=== PATIENT | female | born 1940 | race Caucasian/White ===

== ENCOUNTER 2020-05-01 08:59 | Outpatient (REF) | payer MEDICARE, OTHER, SELFPAY ==
--- NOTE | 2020-05-01 | MM_ITS ---
EXAMINATION: MM SCREENING DIGITAL BREAST TOMOSYNTHESIS, BILATERAL CLINICAL INFORMATION: Screening. Asymptomatic. The lifetime risk of breast cancer based on the Tyrer-Cuzick Model is 2%. COMPARISON: Mammography: 04/26/2019, 09/30/2016, 08/21/2015 TECHNIQUE: Digital breast tomosynthesis is performed in both the craniocaudal and mediolateral oblique views along with computer-aided detection (CAD). Synthesized 2D images are generated from the tomosynthesis. FINDINGS: There are scattered areas of fibroglandular density (ACR BI-RADS breast composition Category b). There are no significant masses, abnormal calcifications, or other abnormalities. Nodular asymmetry central right breast and smaller nodular asymmetry mid outer left breast on CC view are stable from prior exams. No significant changes. MM/MM tomosynthesis screening BI IMPRESSION: No mammographic evidence of malignancy. ASSESSMENT: BI-RADS 2: Benign RECOMMENDATION: Routine annual mammography screening. This patient's information was entered into a reminder system with a target due date for their next mammogram.
== END 2020-05-01 09:00 | disposition home or self-care (01) ==
LOC: HO.MAMMO 08:59
PROVIDERS: PCP Internal Medicine; Visit Provider Internal Medicine Medical Oncology
DX: Z12.31 Encounter for screening mammogram for malignant neoplasm of breast (principal)
CPT/HCPCS: 77063; 77067

== ENCOUNTER 2020-11-14 10:22 | Outpatient (REF) | payer MEDICARE, OTHER, SELFPAY ==
--- NOTE | ~2020-11-14 | XR_ITS ---
EXAMINATION: XR CHEST 2 VIEWS CLINICAL INFORMATION: Hypertension and shortness of breath. COMPARISON: None. TECHNIQUE: Frontal and lateral views of the chest were obtained. FINDINGS: The heart, great vessels, pulmonary vasculature and mediastinum are normal. The lungs show no focal infiltrate, effusion or pneumothorax. There is interim appearance of mild linear scar/subsegmental atelectasis at the left base. There is no acute osseous abnormality. There is a moderate thoracolumbar dextroscoliosis. There are degenerative changes of the left shoulder. XR/XR chest 2V IMPRESSION: 1. No focal infiltrate or congestive heart failure is seen. 2. There is interim appearance of mild lateral left base linear scar/subsegmental atelectasis. As a precaution, short-term follow-up chest radiographs are recommended to ensure clearance and exclude the possibility of underlying obstructive process.
[2020-11-14 12:16] LABS: MANUAL DIFF FLAG NO
[2020-11-14 12:22] LABS: Basophils Percent Auto 0.5 % (0-2); Eosinophils Absolute Auto 0.3 X10*3/uL (0.0-0.4); Eosinophils Percent Auto 2.9 % (0-4); Hemoglobin 15.9 g/dl (12.0-16.0); Imm Gran Abs Auto 0.04 X10*3/uL (0.00-0.03); Imm Gran Pct Auto 0.5 % (0.0-0.4); Lymphocytes Absolute Auto 1.4 X10*3/uL (1.2-4.9); Lymphocytes Percent Auto 15.8 % (20-40); Mean Corpuscular HGB Conc 33.1 g/dl (31.0-35.0); Mean Corpuscular Hemoglobin 28.6 pg (27.0-33.0); Mean Corpuscular Volume 86.5 fL (80-98); Mean Platelet Volume 9.3 fL (9.4-12.3); Monocytes Absolute Auto 0.7 X10*3/uL (0.1-1.2); Monocytes Percent Auto 7.7 % (2-11); Neutrophils Absolute Auto 6.4 X10*3/uL (2.0-8.3); Neutrophils Percent Auto 72.6 % (45-73); Platelet Count 207 X10*3/uL (160-400); Red Blood Count 5.55 X10*6/uL (4.20-5.50); White Blood Count 8.7 X10*3/uL (4.8-10.8)
[2020-11-14 13:11] LABS: Alanine Aminotransferase 15 U/L (0-31); Albumin Level 4.4 g/dL (3.5-5.0); Alkaline Phosphatase 94 U/L (39-117); Anion Gap 14 (12-20); Aspartate Amino Transferase 22 U/L (5-31); Bilirubin Total 0.9 mg/dL (0.0-1.0); Blood Urea Nitrogen 12 mg/dL (9-16); Calcium 9.7 mg/dL (8.4-10.2); Carbon Dioxide 29 mmol/L (22-29); Chloride 104 mmol/L (96-108); Cholesterol 149 mg/dL; Estimated Glomerular Filt Rate 60; Glucose Fasting 87 mg/dL (60-99); HDL Cholesterol 39 mg/dL; LDL Cholesterol Calculated 84 mg/dl; Sodium 143 mmol/L (135-145); Total Protein 6.9 g/dL (6.5-8.0); Triglycerides 133 mg/dL
[2020-11-14 13:32] LABS: Free T4 (Free Thyroxine) 0.96 ng/dL (0.71-1.85); Thyroid Stimulating Hormone 5.58 uIU/mL (0.32-4.0); Vitamin D 25-OH Total 68.9 ng/mL (>30)
[2020-11-14 14:24] LABS: Vitamin B12 747 pg/mL (200-900)
== END 2020-11-14 10:23 | disposition home or self-care (01) ==
LOC: HO.LAB 10:22
PROVIDERS: PCP Internal Medicine; Visit Provider Internal Medicine
DX: E55.9 Vitamin D deficiency, unspecified (principal); I10 Essential (primary) hypertension; R06.02 Shortness of breath; K21.9 Gastro-esophageal reflux disease without esophagitis; R53.83 Other fatigue; M19.90 Unspecified osteoarthritis, unspecified site; Z85.038 Personal history of other malignant neoplasm of large intestine
CPT/HCPCS: 36415; 71046; 80053; 80061; 82306; 82607; 84439; 84443; 85025

== ENCOUNTER 2020-11-29 10:44 | Outpatient (REF) | payer MEDICARE, OTHER, SELFPAY ==
--- NOTE | ~2020-11-29 | CT_ITS ---
EXAMINATION: CT CHEST WITHOUT CONTRAST CLINICAL INFORMATION: SOB. Rule out lesion. COMPARISON: Chest 11/14/2020 TECHNIQUE: Multidetector volumetric CT imaging of the chest was done. Axial MIP volume rendering provided. Sagittal and coronal reformatted images were obtained. This CT examination was performed using dose optimization techniques as appropriate, variously including the following: *Automated exposure control *Adjustment of mA and/or kV according to patient size (this includes techniques or standardized protocols for targeted exams where dose is matched to indication/reason for exam; i.e. extremities or head) *Use of iterative reconstruction technique DLP: 203 mGy-cm FINDINGS: DIE TECHNICIAN: Unremarkable. LUNGS: The lungs are well expanded with linear stranding in lingula, left lower lobe, right middle lobe, and right lower lobe suggestive of atelectasis. There are no pulmonary nodules, mass or consolidation. There is a 5 mm noncalcified nodule left lower lobe axial image 407/5, calcified 3 mm nodule left lower lobe axial image 415/5, 2 mm pulmonary nodule right lower lobe axial image 369/5, and a 4 mm nodule right lower lobe anterior segment image 454/5. No acute consolidation seen. MEDIASTINUM: The left thyroid lobe is enlarged and heterogeneous. There are complex heterogeneous nodules with calcification. The right thyroid lobe has been surgically removed. The heart size and great vessels are normal caliber. No pericardial effusion seen. There are no coronary artery calcifications present either. PLEURA: There is no pleural effusion or thickening. AXILLA: There are small shotty lymph nodes in the axilla. The chest wall is unremarkable. UPPER ABDOMEN: There is a 3.1 cm cyst left hepatic lobe. OSSEOUS STRUCTURES: There are degenerative disc changes and spondylosis seen throughout the lumbar spine. No focal lesion seen. CT/CT chest wo con IMPRESSION: Multiple calcified and noncalcified nodules with the largest noncalcified nodule measuring 5 mm in the left lower lobe. Benign lymph node in the mediastinum. Atelectatic changes, as described above.
== END 2020-11-29 10:45 | disposition home or self-care (01) ==
LOC: HO.CT 10:44
PROVIDERS: PCP Internal Medicine; Visit Provider Internal Medicine
DX: R06.02 Shortness of breath (principal); I10 Essential (primary) hypertension
CPT/HCPCS: 71250

== ENCOUNTER 2020-12-12 14:12 | Outpatient (REF) | payer MEDICARE, OTHER, SELFPAY ==
[2020-12-12 14:52] LABS: MANUAL DIFF FLAG NO
[2020-12-12 15:06] LABS: Basophils Percent Auto 0.5 % (0-2); Eosinophils Absolute Auto 0.3 X10*3/uL (0.0-0.4); Hematocrit 43.9 % (37-47); Hemoglobin 14.9 g/dl (12.0-16.0); Imm Gran Abs Auto 0.03 X10*3/uL (0.00-0.03); Imm Gran Pct Auto 0.3 % (0.0-0.4); Lymphocytes Absolute Auto 1.4 X10*3/uL (1.2-4.9); Lymphocytes Percent Auto 16.6 % (20-40); Mean Corpuscular HGB Conc 33.9 g/dl (31.0-35.0); Mean Corpuscular Hemoglobin 29.4 pg (27.0-33.0); Mean Corpuscular Volume 86.6 fL (80-98); Mean Platelet Volume 9.3 fL (9.4-12.3); Monocytes Absolute Auto 0.7 X10*3/uL (0.1-1.2); Monocytes Percent Auto 7.9 % (2-11); Neutrophils Absolute Auto 6.2 X10*3/uL (2.0-8.3); Neutrophils Percent Auto 71.7 % (45-73); Platelet Count 194 X10*3/uL (160-400); Red Blood Count 5.07 X10*6/uL (4.20-5.50); Red Cell Distribution Width 13.6 % (11.0-16.0); White Blood Count 8.7 X10*3/uL (4.8-10.8)
[2020-12-12 15:24] LABS: Alanine Aminotransferase 15 U/L (0-31); Albumin Level 4.3 g/dL (3.5-5.0); Alkaline Phosphatase 95 U/L (39-117); Anion Gap 11 (12-20); Aspartate Amino Transferase 19 U/L (5-31); Bilirubin Total 0.6 mg/dL (0.0-1.0); Blood Urea Nitrogen 12 mg/dL (9-16); C Reactive Protein 0.54 mg/dL (< or = 0.50); Calcium 9.5 mg/dL (8.4-10.2); Carbon Dioxide 29 mmol/L (22-29); Chloride 105 mmol/L (96-108); Estimated Glomerular Filt Rate > 60; Glucose Random 95 mg/dL (60-115); Magnesium 2.1 mg/dL (1.6-2.6); Potassium 4.3 mmol/L (3.3-5.1); Sodium 141 mmol/L (135-145); Total Protein 6.7 g/dL (6.5-8.0)
== END 2020-12-12 14:13 | disposition home or self-care (01) ==
LOC: HO.LAB 14:12
PROVIDERS: PCP Internal Medicine; Visit Provider Internal Medicine
DX: R19.7 Diarrhea, unspecified (principal); I10 Essential (primary) hypertension; E86.0 Dehydration
CPT/HCPCS: 36415; 80053; 82550; 83735; 85025; 86140

== ENCOUNTER 2021-05-31 12:27 | Outpatient (REF) | payer MEDICARE, OTHER, SELFPAY ==
[2021-06-01 22:17] LABS: Immunoglobulin A 281 mg/dL (70-320)
[2021-06-03 23:06] LABS: Endomysial IgA Antibody Negative (Negative)
[2021-06-05 07:32] LABS: Gliadin Deamidated IgA Ab 2.7 U/mL; Gliadin Deamidated IgG Ab <1.0 U/mL; Transglutaminase Ab IgG <1.0 U/mL; Transglutaminase IgA <1.0 U/mL
== END 2021-05-31 12:28 | disposition home or self-care (01) ==
LOC: HO.LAB 12:27
PROVIDERS: PCP Internal Medicine; Visit Provider Internal Medicine
DX: R19.7 Diarrhea, unspecified (principal)
CPT/HCPCS: 36415; 82784; 86231; 86258; 86364

== ENCOUNTER 2021-07-11 08:00 | Day surgery (SDC) | payer MEDICARE, OTHER, SELFPAY ==
[2021-07-05 14:04] VITALS: BMI 32.3
--- NOTE | 2021-07-10 09:30 | HO.ANESPROP2 ---
Documented by User: Luisa Orozco NP 07/10/21 09:32 HPI - Anesthesia Eval Consult details Narrative: 81yo F for Colonoscopy h/o colon ca with colectomy 2017 [facility] Past Medical History Medical History Arthritis Asthma Chronic bronchitis GERD (gastroesophageal reflux disease) Hiatal hernia History of colon cancer HTN (hypertension) Hx of thyroid cancer Mild stress incontinence Neuropathy Shortness of breath Surgical History Surgical History History of appendectomy History of bilateral cataract extraction History of bladder suspension procedure History of colon surgery History of colonoscopy History of esophagogastroduodenoscopy (EGD) History of thyroidectomy History of tonsillectomy and adenoidectomy Hx of section Hx of cholecystectomy Social History Social History Are you a primary healthcare insurance sales agent to a significant other at home: No Do you presently have visiting nurse or other home services: No Patient Tobacco Use Status: Never used Tobacco Use of substances other than those prescribed or required for medical reasons: No Have you been hit, kicked, punched, or otherwise hurt by someone within the past year? If so, by whom?: No Are you DNR?: No Advance Directives: No Advance Directives Information Provided: No Advance Directives on File: No Recently lost weight without trying: No Eating poorly because of decreased appetite: No Nutrition Risks: No Nutritional Risk Patient : No Meds Allergies Allergy/AdvReac Type Severity Reaction Status Date / Time formaldehyde [FORMALDEHYDE] Allergy Unknown HIVES Unverified 07/05/21 13:41 Home Medications Medication Instructions Recorded Confirmed Last Taken Type acetaminophen 650 mg 1,300 mg PO Q8H 07/05/21 07/05/21 Unknown History tablet,extended release amlodipine 10 mg tablet 1 tab PO DAILY 07/05/21 07/05/21 Unknown History cholecalciferol (vitamin D3) 25 25 mcg PO DAILY 07/05/21 07/05/21 Unknown History mcg (1,000 unit) capsule (Vitamin D3) cholestyramine (with sugar) 4 gram ea PO 07/05/21 Unknown History oral powder fluticasone propionate 50 1 spray INTRANASAL BID 07/05/21 07/05/21 Unknown History mcg/actuation nasal spray,suspension gabapentin 300 mg capsule 2 cap PO BID 07/05/21 07/05/21 Unknown History ipratropium 20 mcg-albuterol 100 1 puff INHALATION Q6H PRN 07/05/21 07/05/21 Unknown History mcg/actuation mist for inhalation (Combivent Respimat) losartan 100 mg tablet 1 tab PO DAILY 07/05/21 07/05/21 Unknown History multivitamin 1 tab PO DAILY 07/05/21 07/05/21 Unknown History omeprazole 20 mg capsule,delayed 20 mg PO DAILY 07/05/21 07/05/21 Unknown History release oxybutynin chloride 10 mg 1 tab PO DAILY 07/05/21 07/05/21 Unknown History tablet,extended release 24 hr Exam Exam Date and Time: July 10, 2021 09 Height,Weight and Vital Signs: Height 5 ft 6 in Weight 90.718 kg Pertinent Lab Results Pertinent Lab Results: Laboratory Tests 12/12/20 12/12/20 14:25 14:25 WBC 8.7 Hgb 14.9 Hct 43.9 Plt Count 194 Sodium 141 Potassium 4.3 Chloride 105 Carbon Dioxide 29 BUN 12 Creatinine 0.89 Assessment and Plan Assessment Anesthesia Assessment: Chart Reviewed Documented by User: Deon Peralta MD 07/11/21 09:17 [facility] Past Medical History Medical History Arthritis Asthma Chronic bronchitis GERD (gastroesophageal reflux disease) Hiatal hernia History of colon cancer HTN (hypertension) Hx of thyroid cancer Mild stress incontinence Neuropathy Shortness of breath Family History Family history of problems with anesthesia: No Surgical History Surgical History History of appendectomy History of bilateral cataract extraction History of bladder suspension procedure History of colon surgery History of colonoscopy History of esophagogastroduodenoscopy (EGD) History of thyroidectomy History of tonsillectomy and adenoidectomy Hx of section Hx of cholecystectomy History of Problems with Anesthesia: No Social History Social History Are you a primary healthcare insurance sales agent to a significant other at home: No Do you presently have visiting nurse or other home services: No Patient Tobacco Use Status: Never used Tobacco Use of substances other than those prescribed or required for medical reasons: No Have you been hit, kicked, punched, or otherwise hurt by someone within the past year? If so, by whom?: No Are you DNR?: No Advance Directives: No Advance Directives Information Provided: No Advance Directives on File: No Recently lost weight without trying: No Eating poorly because of decreased appetite: No Nutrition Risks: No Nutritional Risk Patient : No Meds Allergies Allergy/AdvReac Type Severity Reaction Status Date / Time formaldehyde [FORMALDEHYDE] Allergy Unknown HIVES Unverified 07/05/21 13:41 Home Medications Medication Instructions Recorded Confirmed Last Taken Type acetaminophen 650 mg 1,300 mg PO Q8H 07/05/21 07/05/21 Unknown History tablet,extended release amlodipine 10 mg tablet 1 tab PO DAILY 07/05/21 07/05/21 Unknown History cholecalciferol (vitamin D3) 25 25 mcg PO DAILY 07/05/21 07/05/21 Unknown History mcg (1,000 unit) capsule (Vitamin D3) cholestyramine (with sugar) 4 gram ea PO 07/05/21 Unknown History oral powder fluticasone propionate 50 1 spray INTRANASAL BID 07/05/21 07/05/21 Unknown History mcg/actuation nasal spray,suspension gabapentin 300 mg capsule 2 cap PO BID 07/05/21 07/05/21 Unknown History ipratropium 20 mcg-albuterol 100 1 puff INHALATION Q6H PRN 07/05/21 07/05/21 Unknown History mcg/actuation mist for inhalation (Combivent Respimat) losartan 100 mg tablet 1 tab PO DAILY 07/05/21 07/05/21 Unknown History multivitamin 1 tab PO DAILY 07/05/21 07/05/21 Unknown History omeprazole 20 mg capsule,delayed 20 mg PO DAILY 07/05/21 07/05/21 Unknown History release oxybutynin chloride 10 mg 1 tab PO DAILY 07/05/21 07/05/21 Unknown History tablet,extended release 24 hr Exam Airway Mallampati Class: II TM Dist: >3cm Neck ROM: Full Assessment and Plan Assessment Anesthesia Assessment: Anesthesia Plan Discussed Final Anesthetic Review Family History of Problems with Anesthesia: No History of Problems with Anesthesia: No NPO: Yes ASA Class: II Final Preanesthetic Review: No Changes in Pt Med Stat, Meds/Allgs Chart Reviewed, Consent Obtained/Reviewed and Anes Risks/Benef Reviewed Patient Risk: Intermediate Procedure Risk: Low Anesthetic Plan Anesthetic Plan: MAC: Disposition: Standard PACU
[2021-07-11 09:09] VITALS: BP 142/83; PULSE 95; RESP 18; TEMP 36.8; O2SAT 95
[2021-07-11] MEDS: Lactated Ringers 1,000 ML 100 ML IVCONT (09:17)
[2021-07-11 09:54] VITALS: BP 99/57; PULSE 81; RESP 16; TEMP 37.6; O2SAT 96
--- NOTE | 2021-07-11 09:58 | P.BOP_ITS ---
Brief Operative Note Date of Service: 07/11/21 Pre-op diagnosis: Screening Post-op diagnosis: other (Internal hemorrhoids, Normal anastomosis) Procedure: Colonoscopy to the anastomosis and SI Surgeon: Jer Zelaya Anesthesia: MAC Was an Braiding Machine Tender used for this Procedure?: No Estimated blood loss (mL): 0 Pathology: none sent Condition: stable Disposition: PACU
[2021-07-11 09:59] VITALS: BP 95/65; PULSE 86; RESP 16; O2SAT 94
[2021-07-11 10:04] VITALS: BP 119/78; PULSE 81; RESP 16; O2SAT 94
[2021-07-11 10:10] VITALS: BP 110/87; PULSE 77; RESP 16; TEMP 36.4; O2SAT 94
--- NOTE | 2021-07-11 10:53 | OP_ITS ---
SURGEON: Jer Zelaya MD INDICATIONS: The patient presents for evaluation of colorectal cancer screening, personal history of colon cancer, and history of tubular adenoma of the colon. Full consent was obtained from her for this, including risks of bleeding and perforation. PREOPERATIVE DIAGNOSIS: POSTOPERATIVE DIAGNOSIS: PROCEDURE PERFORMED: Colonoscopy to the anastomosis and small bowel. ESTIMATED BLOOD LOSS: COMPLICATIONS: ANESTHESIA: Monitored anesthesia care. ASSISTANTS: SPECIMENS: PREOPERATIVE DIAGNOSES: Colorectal cancer screening, personal history of colon cancer, personal history of tubular adenoma of the colon. POSTOPERATIVE DIAGNOSES: Colorectal cancer screening, personal history of colon cancer, personal history of tubular adenoma of the colon, normal anastomosis, internal hemorrhoids. DESCRIPTION OF PROCEDURE: The patient was placed in the left lateral decubitus position. The digital rectal exam revealed no abnormalities. The Olympus video pediatric colonoscope was entered into the rectum advanced easily to the level of the anastomosis. The small bowel was cannulated and appeared normal. The scope was withdrawn back in the colon. The entire anastomosis was well visualized and appeared normal. The scope was slowly withdrawn assessing all mucosal surfaces carefully. Preparation in different parts of the colon had some liquid and solid stool, all of which were irrigated and suctioned away as best as possible, allowing an ultimately good visualization of the colon. I did not visualize any sign of polyps, colitis, or angiodysplasia. An another anastomosis was seen at approximately 10 cm with some suture material, but the anastomosis appeared normal. In the rectum, scope was retroflexed visualizing internal hemorrhoids, but no other pathology. The rectal mucosa otherwise appeared normal. The scope was straightened and withdrawn from the patient. She tolerated the procedure well and was returned to the recovery area in stable condition. IMPRESSION: 1. Internal hemorrhoids. 2. Normal anastomosis from her previous colon cancer surgery. PLAN: I would recommend a repeat colonoscopy in 3 years for further screening and surveillance, although at that point she will be in early 80s and we would need to take her clinical condition into account. She was given a prescription to try cholestyramine for the diarrhea that she has at home. She can use that plus her Imodium as needed. If things are well, I will see her in 3 years, but I did advise her to call sooner if need be. This has been discussed with her daughter. MD KAMALA Le/SAMY / [id number] MAXI
== END 2021-07-11 11:11 | disposition home or self-care (01) ==
PROVIDERS: PCP Internal Medicine; Visit Provider Internal Medicine
PROC: 0DJD8ZZ Inspection of Lower Intestinal Tract, Via Natural or Artificial Opening Endoscopic (ICD-10-PCS; CPT 45378; principal; 2021-07-11 09:10)
DX: Z12.11 Encounter for screening for malignant neoplasm of colon (principal); Z85.038 Personal history of other malignant neoplasm of large intestine; Z86.010 Personal history of colon polyps; Z98.0 Intestinal bypass and anastomosis status; K64.8 Other hemorrhoids; K21.9 Gastro-esophageal reflux disease without esophagitis; R19.7 Diarrhea, unspecified; J45.909 Unspecified asthma, uncomplicated; I10 Essential (primary) hypertension; G62.9 Polyneuropathy, unspecified; Z79.51 Long term (current) use of inhaled steroids; Z79.899 Other long term (current) drug therapy; Z92.21 Personal history of antineoplastic chemotherapy; Z90.49 Acquired absence of other specified parts of digestive tract; Z98.890 Other specified postprocedural states
CPT/HCPCS: G0105

== ENCOUNTER 2021-07-17 12:25 | Outpatient (REF) | payer MEDICARE, OTHER, SELFPAY ==
--- NOTE | ~2021-07-17 | MM_ITS ---
EXAMINATION: MM SCREENING DIGITAL BREAST TOMOSYNTHESIS, BILATERAL CLINICAL INFORMATION: Screening. Asymptomatic. The lifetime risk of breast cancer based on the Tyrer-Cuzick Model is 2%. COMPARISON: Mammography: 05/01/2020, 04/26/2019, 09/30/2016 TECHNIQUE: Digital breast tomosynthesis is performed in both the craniocaudal and mediolateral oblique views along with computer-aided detection (CAD). Synthesized 2D images are generated from the tomosynthesis. FINDINGS: There are scattered areas of fibroglandular density (ACR BI-RADS breast composition Category b). There are no significant masses, abnormal calcifications, or other abnormalities. Parenchymal pattern is similar to prior studies. There is stable nodule central anterior 9:30 right breast. Benign grouped coarse calcifications are again seen central right breast. The axilla and skin contours are unremarkable. There are no significant changes. MM/MM tomosynthesis screening BI IMPRESSION: No mammographic evidence of malignancy. ASSESSMENT: BI-RADS 2: Benign RECOMMENDATION: Routine annual mammography screening. This patient's information was entered into a reminder system with a target due date for their next mammogram.
== END 2021-07-17 12:26 | disposition home or self-care (01) ==
LOC: HO.MAMMO 12:25
PROVIDERS: Visit Provider Internal Medicine Medical Oncology
DX: Z12.31 Encounter for screening mammogram for malignant neoplasm of breast (principal)
CPT/HCPCS: 77063; 77067

== ENCOUNTER 2022-05-02 11:48 | Outpatient (REF) | payer MEDICARE, OTHER, SELFPAY ==
--- NOTE | ~2022-05-02 | XR_ITS ---
EXAMINATION: XR CHEST CLINICAL INFORMATION: Fatigue COMPARISON: CT chest 11/29/2020; chest radiographs 11/14/2020, 02/07/2016 TECHNIQUE: 2 views of the chest were obtained. FINDINGS: There is dextrocurvature lower thoracic spine and mild rotation of the chest on the frontal view. There is old linear scarring periphery left lingula and mild coarsening of the central bronchiolar markings. No hyperinflation. No lobar or segmental airspace consolidation, groundglass opacity, or effusion. The costophrenic sulci are clear. The cardiopericardial silhouette is borderline enlarged. Hilar contours unremarkable. XR/XR chest 2V IMPRESSION: 1. Mild coarsening bronchiolar markings. No hyperinflation, airspace consolidation, or effusion. 2. Borderline enlarged cardiopericardial silhouette. Vascularity normal.
[2022-05-02 12:27] LABS: MANUAL DIFF FLAG NO
[2022-05-02 13:21] LABS: Basophils Absolute Auto 0.1 X10*3/uL (0.0-0.2); Basophils Percent Auto 0.7 % (0-2); Eosinophils Absolute Auto 0.2 X10*3/uL (0.0-0.4); Eosinophils Percent Auto 2.5 % (0-4); Hematocrit 45.7 % (37.0-47.0); Hemoglobin 15.2 g/dl (12.0-16.0); Imm Gran Abs Auto 0.03 X10*3/uL (0.00-0.03); Imm Gran Pct Auto 0.3 % (0.0-0.4); Lymphocytes Absolute Auto 1.5 X10*3/uL (1.2-4.9); Lymphocytes Percent Auto 16.9 % (20-40); Mean Corpuscular HGB Conc 33.3 g/dl (31.0-35.0); Mean Corpuscular Hemoglobin 29.2 pg (27.0-33.0); Mean Corpuscular Volume 87.7 fL (80.0-98.0); Mean Platelet Volume 9.7 fL (9.4-12.3); Monocytes Absolute Auto 0.7 X10*3/uL (0.1-1.2); Monocytes Percent Auto 8.2 % (2-11); Neutrophils Absolute Auto 6.3 x10*3/uL (2.0-8.3); Neutrophils Percent Auto 71.4 % (45-73); Platelet Count 182 X10*3/uL (160-400); Red Blood Count 5.21 X10*6/uL (4.20-5.50); Red Cell Distribution Width 13.2 % (11.0-16.0); White Blood Count 8.8 X10*3/uL (4.8-10.8)
[2022-05-02 13:47] LABS: Appearance Urine Cloudy; Color Urine Dark Yellow; Glucose Urine UA Negative (Negative); Leukocyte Esterase Urine Negative (Negative); Nitrite Urine Negative (Negative); Urine Blood Negative (Negative); Urine Ketones Negative (Negative); Urine Protein Negative (Neg-Trace)
[2022-05-02 13:51] LABS: Alanine Aminotransferase 13 U/L (0-31); Albumin Level 4.4 g/dL (3.5-5.0); Alkaline Phosphatase 83 U/L (39-117); Anion Gap 13 (12-20); Aspartate Amino Transferase 23 U/L (5-31); Bilirubin Total 1.2 mg/dL (0.0-1.0); Blood Urea Nitrogen 12 mg/dL (9-16); C Reactive Protein 0.83 mg/dL (< or = 0.50); Calcium 9.6 mg/dL (8.4-10.2); Carbon Dioxide 30 mmol/L (22-29); Chloride 102 mmol/L (96-108); Cholesterol 160 mg/dL; Estimated Glomerular Filt Rate > 60; Glucose Fasting 96 mg/dL (60-99); HDL Cholesterol 41 mg/dL; LDL Cholesterol Calculated 97 mg/dl; Potassium 4.2 mmol/L (3.3-5.1); Sodium 141 mmol/L (135-145); Total Protein 6.7 g/dL (6.5-8.0); Triglycerides 110 mg/dL
[2022-05-02 14:08] LABS: Free T4 (Free Thyroxine) 0.89 ng/dL (0.71-1.85); Thyroid Stimulating Hormone 4.31 uIU/mL (0.32-4.0)
[2022-05-02 14:13] LABS: Vitamin B12 1085 pg/mL (200-900)
== END 2022-05-02 11:49 | disposition home or self-care (01) ==
LOC: HO.LAB 11:48
PROVIDERS: PCP Internal Medicine; Visit Provider Internal Medicine
DX: R53.83 Other fatigue (principal); I10 Essential (primary) hypertension; K21.9 Gastro-esophageal reflux disease without esophagitis; G62.9 Polyneuropathy, unspecified
CPT/HCPCS: 36415; 71046; 80053; 80061; 81003; 82607; 84439; 84443; 85025; 86140

== ENCOUNTER 2022-07-19 09:05 | Outpatient (REF) | payer MEDICARE, OTHER, SELFPAY ==
--- NOTE | ~2022-07-19 | MM_ITS ---
EXAMINATION: MM SCREENING DIGITAL BREAST TOMOSYNTHESIS, BILATERAL CLINICAL INFORMATION: Screening. Asymptomatic. The lifetime risk of breast cancer based on the Tyrer-Cuzick Model is 2%. COMPARISON: Mammography: 07/19/2022, 07/17/2021, 05/01/2020, 04/26/2019 TECHNIQUE: Digital breast tomosynthesis is performed in both the craniocaudal and mediolateral oblique views along with computer-aided detection (CAD). Synthesized 2D images are generated from the tomosynthesis. FINDINGS: There are scattered areas of fibroglandular density (ACR BI-RADS breast composition Category b). Parenchymal pattern is similar to prior studies and there is no developing density or architectural abnormality. Minor nodular asymmetry central right breast are similar to prior exams. There are no significant masses, abnormal calcifications, or other abnormalities. The axilla and skin contours are unremarkable. MM/MM tomosynthesis screening BI IMPRESSION: No mammographic evidence of malignancy. ASSESSMENT: BI-RADS 2: Benign RECOMMENDATION: Routine annual mammography screening. This patient's information was entered into a reminder system with a target due date for their next mammogram.
--- NOTE | ~2022-07-19 | MM_ITS ---
EXAMINATION: BONE DENSITOMETRY CLINICAL INDICATION: Screening. COMPARISON: This is the patient's baseline examination. TECHNIQUE: Using a [employer] DXA System (software version: 13.1) manufactured by [employer], dual-energy x-ray absorptiometry was performed of the lumbar spine and left hip. The images are of good technical quality. Summary results are attached. FINDINGS: AP SPINE L1-L2 (excluding L3 and L4): The data of L1-L4 has been changed to exclude the L3 and L4 vertebral bodies, because degenerative sclerosis at these levels may cause overestimation of lumbar spine density. BMD 1.174 g/cm2, Z-score 1.1, T-score 0.1, normal. LEFT FEMUR, NECK: BMD 0.951 g/cm2, Z-score 1.0, T-score -0.6, normal. LEFT FEMUR, TOTAL: BMD 0.852 g/cm2, Z-score 0.2, T-score -1.2, osteopenia. IDENTIFIED RISK FACTORS: Menopause, height loss, hysterectomy, osteoporosis, secondary osteoporosis. HISTORY OF FRACTURE: None listed. MEDICATIONS: Multivitamin, vitamin D. MM/XR DEXA axial skeleton IMPRESSION: 1. DIAGNOSIS: Osteopenia based on the lowest T-score value of -1.2 in the total femur applying World Health Organization criteria. 2. 10-YEAR FRACTURE RISK PREDICTION, FRAX: Major osteoporotic fracture (clinical spine, forearm, hip or shoulder) 10.0%. Hip fracture 1.6%. 3. Treatment Recommendations: NOF guidelines recommend consideration for treatment in postmenopausal women and men age 50 and older presenting with the following: -A hip or vertebral (clinical or morphometric) fracture. -T-score less than or equal to -2.5 at the femoral neck or spine after appropriate evaluation to exclude secondary causes. -Low bone mass at the hip or spine and a 10-year fracture probability by FRAX of greater than or equal to 3% for hip fracture or greater than or equal to 20% for major osteoporotic fracture based on the [place] adapted WHO algorithm. 4. Other Recommendations: All treatment decisions require clinical judgment and consideration of individual patient factors, including patient preferences, comorbidities, previous drug use, risk factors not captured in the FRAX model (e.g. frailty, falls, vitamin D deficiency, increased bone turnover, interval significant decline in bone density) and possible under or overestimation of fracture risk by FRAX. Additional medical evaluation for secondary cause of low bone mineral density may be appropriate. FUTURE SCAN RECOMMENDATION: People with diagnosed cases of osteoporosis or at high risk for fracture should have regular bone mineral density tests. For patients eligible for Medicare, routine testing is allowed once every 2 years. The testing frequency can be increased to one year for patients who have rapidly progressing disease, those who are receiving or discontinuing medical therapy to restore bone mass, or have additional risk factors.
== END 2022-07-19 09:06 | disposition home or self-care (01) ==
LOC: HO.MAMMO 09:05
PROVIDERS: PCP Internal Medicine; Visit Provider Internal Medicine
DX: Z12.31 Encounter for screening mammogram for malignant neoplasm of breast (principal); Z13.820 Encounter for screening for osteoporosis; Z78.0 Asymptomatic menopausal state
CPT/HCPCS: 77063; 77067; 77080

== ENCOUNTER 2022-11-14 14:06 | Emergency (ER) | payer MEDICARE, OTHER, SELFPAY ==
--- NOTE | ~2022-11-14 | CT_ITS ---
EXAMINATION: CT HEAD WITHOUT CONTRAST CLINICAL INFORMATION: Headache. COMPARISON: None TECHNIQUE: Contiguous axial imaging was performed from the skull base to vertex without intravenous administration of contrast. This CT examination was performed using dose optimization techniques as appropriate, variously including the following: *Automated exposure control *Adjustment of mA and/or kV according to patient size (this includes techniques or standardized protocols for targeted exams where dose is matched to indication/reason for exam; i.e. extremities or head) *Use of iterative reconstruction technique DLP: 688 mGy-cm FINDINGS: There is no evidence of acute intracranial hemorrhage or edematous territorial infarction. A few foci of hypoattenuation in the periventricular and deep white matter are consistent with mild microangiopathy. Donovan-white matter differentiation is preserved. Proportional prominence of the ventricles and sulcal spaces. No evidence for obstructive hydrocephalus. No abnormal mass effect or midline shift. No extra-axial fluid collections. No acute soft tissue or osseous abnormalities. The mastoid air cells and paranasal sinuses are clear. CT/CT head/brain wo IV con IMPRESSION: No evidence of acute intracranial hemorrhage or edematous territorial infarction.
--- NOTE | 2022-11-14 14:27 | ED_ITS ---
HPI - General Adult General Chief complaint: Headache Stated complaint: high blood pressure/ headache Time Seen by Provider: 11/14/22 16:27 Source: patient and family Mode of arrival: ambulatory Limitations: no limitations History of Present Illness HPI narrative: Patient complains of a headache. Headache is generalized. A 9/10. It came on gradually over the past few 2 days. There is no photo phonophobia. There is no nausea vomiting. There is no neck pain or stiffness. Patient does not have a history of headaches. The pain does not radiate. The headache is described as generalized and pressure-like. Daughter notes that she sounds a little bit congested. Related Data Home Medications Medication Instructions Recorded Confirmed acetaminophen 650 mg 1,300 mg PO Q8H 07/05/21 07/05/21 tablet,extended release amlodipine 10 mg tablet 1 tab PO DAILY 07/05/21 07/05/21 cholecalciferol (vitamin D3) 25 25 mcg PO DAILY 07/05/21 07/05/21 mcg (1,000 unit) capsule (Vitamin D3) cholestyramine (with sugar) 4 gram ea PO 07/05/21 oral powder fluticasone propionate 50 1 spray intranasal BID 07/05/21 07/05/21 mcg/actuation nasal spray,suspension gabapentin 300 mg capsule 2 cap PO BID 07/05/21 07/05/21 ipratropium 20 mcg-albuterol 100 1 puff inhalation Q6H PRN Wheezing 07/05/21 07/05/21 mcg/actuation mist for inhalation (Combivent Respimat) losartan 100 mg tablet 1 tab PO DAILY 07/05/21 07/05/21 multivitamin 1 tab PO DAILY 07/05/21 07/05/21 omeprazole 20 mg capsule,delayed 20 mg PO DAILY 07/05/21 07/11/21 release oxybutynin chloride 10 mg 1 tab PO DAILY 07/05/21 07/05/21 tablet,extended release 24 hr Previous Rx's Medication Instructions Recorded fvayyskbep-utijyuvzujvkm-xqvhxznr 1 cap PO Q4-6H PRN pain #10 caps 11/14/22 50 mg-300 mg-40 mg capsule (Fioricet) Allergies Allergy/AdvReac Type Severity Reaction Status Date / Time formaldehyde [FORMALDEHYDE] Allergy Unknown HIVES Verified 11/14/22 14:28 Review of Systems Review of Systems: CONSTITUTIONAL: Denies weight loss, fever and chills. HEENT: Denies changes in vision and hearing. RESPIRATORY: Denies SOB and cough. CV: Denies palpitations no CP. GI: Denies abdominal pain, nausea, vomiting and diarrhea. : Denies dysuria and urinary frequency. MSK: Denies myalgia and joint pain. SKIN: Denies rash and pruritus. NEUROLOGICAL: + headache - syncope. PSYCHIATRIC: Denies recent changes in mood. Denies anxiety and depression. All other ROS are negative unless in HPI PMFSH Past Medical History Medical History Arthritis Asthma Chronic bronchitis GERD (gastroesophageal reflux disease) Hiatal hernia History of colon cancer HTN (hypertension) Hx of thyroid cancer Mild stress incontinence Neuropathy Shortness of breath Surgical History History of appendectomy History of bilateral cataract extraction History of bladder suspension procedure History of colon surgery History of colonoscopy History of esophagogastroduodenoscopy (EGD) History of thyroidectomy History of tonsillectomy and adenoidectomy Hx of section Hx of cholecystectomy Social History Social History Are you a primary career resource specialist to a significant other at home: No Do you presently have visiting nurse or other home services: No Alcohol intake: never Patient Tobacco Use Status: Never used Tobacco Smoked in Last 30 Days: No Use of substances other than those prescribed or required for medical reasons: No Advance Directives: No Advance Directives Information Provided: No Physical Exam ED Vital Signs: Vital Signs - 24 hr 11/14/22 14:28 11/14/22 16:36 Temperature 98 F 97.6 F Pulse Rate 75 72 Respiratory Rate 19 18 Blood Pressure 186/87 H 174/83 H Pulse Oximetry 96 95 Oxygen Delivery Method Room Air Room Air BMI result Body Mass Index 31.5 GEN: Well developed, no acute distress, alert, oriented HEENT: Normocephalic, atraumatic, normal external ears, nose appears normal, no oropharyngeal edema or exudates Eyes: Normal to appearance Neck: Supple, no lymphadenopathy Respiratory: Talks in complete sentences, no respiratory distress, clear to auscultation bilaterally Cardiovascular: Regular rate and rhythm, no murmurs rubs or gallops Abdomen: Soft, nontender, nondistended, no guarding, no rebound Back: No CVA tenderness Extremities: No clubbing cyanosis or edema Neurologic: No focal neurologic deficits, cranial nerves 2-12 intact, strength is 5/5 bilaterally Skin: No rash Course Course Course Narrative: This is a rapid medical exam: Additional HPI, ROS, PE not included below will be deferred to primary provider. Patient is an 82-year-old female with history of asthma, arthritis, GERD, HTN, thyroid CA presenting with complaint of headache and elevated BP for two days after receiving two cortisone shots on Friday. Has tried Tylenol for arthritis without relief. Family states 190/98 was the highest. Patient reports blurred vision and watery eyes. Denies chest pain, shortness of breath. Denies abdominal pain, nausea, vomiting. Reports episode of diarrhea this morning. Plan: EKG, labs, UA Reevaluation(s) Reevaluation #1: Patient's headache is currently 5/10. She would like to be discharged home. I will send a prescription for Fioricet. She does have an elevated blood pressure still. Not sure if this is the cause her pain which I doubt more likely the blood pressure is the results of her pain. She will follow-up with her primary care provider. Time: 19:59 Medications Administered Discontinued Medications Generic Name Dose Route Start Last Admin Trade Name Hugh PRN Reason Stop Dose Admin Acetaminophen/Butalbital/Caffeine 1 tab 11/14/22 18:53 11/14/22 19:09 Butalb/Acetamin/Caff 50/325/40 Tablet PO 11/14/22 18:54 1 tab ONCE ONE Administration Dexamethasone Sodium Phosphate 10 mg 11/14/22 18:53 11/14/22 19:10 Dexamethasone Sod Phosphate 10 Mg/Ml Vial IVPUSH 11/14/22 18:54 10 mg ONCE ONE Administration Gabapentin 300 mg 11/14/22 17:35 11/14/22 18:10 Gabapentin 300 Mg Capsule PO 11/14/22 17:36 300 mg ONCE ONE Administration Sodium Chloride 1,000 mls @ 999 mls/hr 11/14/22 17:45 11/14/22 19:16 Ns IV 11/14/22 18:45 Infused .Q1H1M MAYKEL Infusion Ketorolac Tromethamine 15 mg 11/14/22 17:35 11/14/22 18:11 Ketorolac Tromethamine 15 Mg/Ml Vial IVPUSH 11/14/22 17:36 15 mg ONCE ONE Administration Metoclopramide HCl 10 mg 11/14/22 17:35 11/14/22 18:12 Metoclopramide Hcl 10 Mg/2 Ml Vial IVPUSH 11/14/22 17:36 10 mg ONCE ONE Administration Medical Decision Making Medical Decision Making [facility] Narrative: [age] year old female presents with headache and elevated blood pressure. Examination was benign. There are no meningeal signs. There is no sudden onset thunderclap headache. Doubt subarachnoid hemorrhage or meningitis. There are no reports of trauma to suggest subdural or epidural hematoma. Patient's headache is generalized around her head likely a tension headache. Differential diagnosis could also include cluster headache, migraine headache, sinus headache. I will obtain a CT scan of the head given her age in no history of significant headache syndrome. Will also check routine laboratory analysis. Will continue to monitor her blood pressure. Patient may warrant outpatient management of her elevated blood pressure readings. Differential Diagnosis Differential Diagnoses: The differential diagnosis associated with the presentation includes (See above) Admission/Observation Consideration of admission/observation: Escalation of care including admission/observation considered Lab Data [facility] Lab Attestation statement: I reviewed the patient's lab results. 11/14/22 15:16 11/14/22 15:16 Labs: Lab Results 11/14/22 11/14/22 11/14/22 Range/Units 15:15 15:16 15:16 WBC 15.5 H (4.8-10.8) X10*3/uL RBC 5.51 H (4.20-5.50) X10*6/uL Hgb 16.0 (12.0-16.0) g/dl Hct 46.8 (37.0-47.0) % MCV 84.9 (80.0-98.0) fL MCH 29.0 (27.0-33.0) pg MCHC 34.2 (31.0-35.0) g/dl RDW 13.9 (11.0-16.0) % Plt Count 201 (160-400) X10*3/uL MPV 8.9 L (9.4-12.3) fL Immature Gran % (Auto) 0.6 H (0.0-0.4) % Neut % (Auto) 85.2 H (45-73) % Lymph % (Auto) 7.8 L (20-40) % [place] % (Auto) 6.3 (2-11) % Eos % (Auto) 0.0 (0-4) % Baso % (Auto) 0.1 (0-2) % Lymph # (Auto) 1.2 (1.2-4.9) X10*3/uL [place] # (Auto) 1.0 (0.1-1.2) X10*3/uL Eos # (Auto) 0.0 (0.0-0.4) X10*3/uL Baso # (Auto) 0.0 (0.0-0.2) X10*3/uL Abs Immat Gran (auto) 0.10 H (0.00-0.03) X10*3/uL Absolute Neuts (auto) 13.2 H (2.0-8.3) x10*3/uL Absolute Nucleated RBC 0.000 (0.0-0.012) X10*3/uL Nucleated RBC % (auto) 0.0 (0.0-0.2) /100WBC Sodium 142 (135-145) mmol/L Potassium 4.0 (3.3-5.1) mmol/L Chloride 104 (96-108) mmol/L Carbon Dioxide 26 (22-29) mmol/L Anion Gap 16 (12-20) BUN 21 H (9-16) mg/dL Creatinine 0.85 (0.5-1.4) mg/dL Estim Creat Clear Calc 59.1 Estimated GFR > 60 Random Glucose 117 H (60-115) mg/dL Calcium 10.1 (8.4-10.2) mg/dL Magnesium 1.9 (1.6-2.6) mg/dL Total Bilirubin 0.8 (0.0-1.0) mg/dL AST 23 (5-31) U/L ALT 18 (0-31) U/L Alkaline Phosphatase 77 (39-117) U/L Troponin I High Sens (<3.5-17.0) ng/L Total Protein 7.5 (6.5-8.0) g/dL Albumin 4.6 (3.5-5.0) g/dL Urine Color Yellow Urine Appearance Clear Urine pH 6.5 (5.0-9.0) Ur Specific [place] 1.020 (1.005-1.025) Urine Protein Negative (Neg-Trace) mg/dL Urine Glucose (UA) Negative (Negative) mg/dL Urine Ketones Negative (Negative) mg/dL Urine Blood Negative (Negative) Urine Nitrite Negative (Negative) Ur Leukocyte Esterase Negative (Negative) 11/14/22 Range/Units 15:16 WBC (4.8-10.8) X10*3/uL RBC (4.20-5.50) X10*6/uL Hgb (12.0-16.0) g/dl Hct (37.0-47.0) % MCV (80.0-98.0) fL MCH (27.0-33.0) pg MCHC (31.0-35.0) g/dl RDW (11.0-16.0) % Plt Count (160-400) X10*3/uL MPV (9.4-12.3) fL Immature Gran % (Auto) (0.0-0.4) % Neut % (Auto) (45-73) % Lymph % (Auto) (20-40) % [place] % (Auto) (2-11) % Eos % (Auto) (0-4) % Baso % (Auto) (0-2) % Lymph # (Auto) (1.2-4.9) X10*3/uL [place] # (Auto) (0.1-1.2) X10*3/uL Eos # (Auto) (0.0-0.4) X10*3/uL Baso # (Auto) (0.0-0.2) X10*3/uL Abs Immat Gran (auto) (0.00-0.03) X10*3/uL Absolute Neuts (auto) (2.0-8.3) x10*3/uL Absolute Nucleated RBC (0.0-0.012) X10*3/uL Nucleated RBC % (auto) (0.0-0.2) /100WBC Sodium (135-145) mmol/L Potassium (3.3-5.1) mmol/L Chloride (96-108) mmol/L Carbon Dioxide (22-29) mmol/L Anion Gap (12-20) BUN (9-16) mg/dL Creatinine (0.5-1.4) mg/dL Estim Creat Clear Calc Estimated GFR Random Glucose (60-115) mg/dL Calcium (8.4-10.2) mg/dL Magnesium (1.6-2.6) mg/dL Total Bilirubin (0.0-1.0) mg/dL AST (5-31) U/L ALT (0-31) U/L Alkaline Phosphatase (39-117) U/L Troponin I High Sens 2.8 (<3.5-17.0) ng/L Total Protein (6.5-8.0) g/dL Albumin (3.5-5.0) g/dL Urine Color Urine Appearance Urine pH (5.0-9.0) Ur Specific [place] (1.005-1.025) Urine Protein (Neg-Trace) mg/dL Urine Glucose (UA) (Negative) mg/dL Urine Ketones (Negative) mg/dL Urine Blood (Negative) Urine Nitrite (Negative) Ur Leukocyte Esterase (Negative) Independent Interpretation I performed an independent interpretation of an: EKG (Chronic venous rhythm heart rate 72, left axis deviation, no acute ST elevations depressions.) and CT Scan (Head: No acute intracranial process) Radiology Impression Discussion of test interpretation with radiology: I have reviewed the radiologist's reading. Radiologist Impression: CT/CT head/brain wo IV con IMPRESSION: No evidence of acute intracranial hemorrhage or edematous territorial infarction. ? Dictated By: Kary Dooley Signed By: <Electronically signed by Deana Dooley in [place]> 11/14/221813 Prescription Management I considered prescription management with: Pain Medication Chronic Conditions Patient?s care impacted by: Hypertension Discharge Plan Discharge Clinical Impression: Headache, Hypertension Patient Disposition: Home, Self-Care Instructions: Acute Headache (DC), Chronic Hypertension (ED) Prescriptions: New ohoiqlrdrp-crrdkpcxcoaeg-qyhe [Fioricet] 50-300-40 mg capsule 1 cap PO Q4-6H PRN (Reason: pain) Qty: 10 0RF No Action oxybutynin chloride 10 mg tablet extended release 24hr 1 tab PO DAILY amlodipine 10 mg tablet 1 tab PO DAILY gabapentin 300 mg capsule 2 cap PO BID losartan 100 mg tablet 1 tab PO DAILY fluticasone propionate 50 mcg/actuation spray,suspension 1 spray intranasal BID cholestyramine (with sugar) 4 gram powder PO multivitamin Tablet 1 tab PO DAILY acetaminophen [Tylenol Arthritis] 650 mg Tablet Extended Release 1,300 mg PO Q8H omeprazole 20 mg Capsule,Delayed Release(Dr/Ec) 20 mg PO DAILY cholecalciferol (vitamin D3) [Vitamin D3] 25 mcg (1,000 unit) Capsule 25 mcg PO DAILY Combivent Respimat 20-100 mcg/actuation Mist 1 puff INHALATION Q6H PRN (Reason: Wheezing) Interventions: ED Discharge Assessment Last Done: 11/14/22 20:13
[2022-11-14 14:28] VITALS: BP 186/87; PULSE 75; RESP 19; TEMP 36.6; O2SAT 96; BMI 31.5
--- NOTE | 2022-11-14 14:30 | ECG_ITS ---
Test Reason : HTN Blood Pressure : / mmHG Vent. Rate : 072 BPM Atrial Rate : 072 BPM P-R Int : 130 ms QRS Dur : 092 ms QT Int : 386 ms P-R-T Axes : 065 -39 021 degrees QTc Int : 422 ms Normal sinus rhythm Normal EKG When compared with ECG of 25-SEP-2001 06:55, No significant change was found Referred By: Juana Lewis Electronically Signed By:ZAIRE PLASCENCIA
[2022-11-14 15:20] LABS: MANUAL DIFF FLAG NO
[2022-11-14 15:21] LABS: Basophils Percent Auto 0.1 % (0-2); Hematocrit 46.8 % (37.0-47.0); Imm Gran Pct Auto 0.6 % (0.0-0.4); Lymphocytes Absolute Auto 1.2 X10*3/uL (1.2-4.9); Lymphocytes Percent Auto 7.8 % (20-40); Mean Corpuscular HGB Conc 34.2 g/dl (31.0-35.0); Mean Corpuscular Volume 84.9 fL (80.0-98.0); Mean Platelet Volume 8.9 fL (9.4-12.3); Monocytes Percent Auto 6.3 % (2-11); Neutrophils Absolute Auto 13.2 x10*3/uL (2.0-8.3); Neutrophils Percent Auto 85.2 % (45-73); Platelet Count 201 X10*3/uL (160-400); Red Blood Count 5.51 X10*6/uL (4.20-5.50); Red Cell Distribution Width 13.9 % (11.0-16.0); White Blood Count 15.5 X10*3/uL (4.8-10.8)
[2022-11-14 15:24] LABS: Appearance Urine Clear; Color Urine Yellow; Glucose Urine UA Negative (Negative); Leukocyte Esterase Urine Negative (Negative); Nitrite Urine Negative (Negative); PH 6.5 (5.0-9.0); Urine Blood Negative (Negative); Urine Ketones Negative (Negative); Urine Protein Negative (Neg-Trace)
[2022-11-14 15:36] LABS: Alanine Aminotransferase 18 U/L (0-31); Albumin Level 4.6 g/dL (3.5-5.0); Alkaline Phosphatase 77 U/L (39-117); Anion Gap 16 (12-20); Aspartate Amino Transferase 23 U/L (5-31); Bilirubin Total 0.8 mg/dL (0.0-1.0); Blood Urea Nitrogen 21 mg/dL (9-16); Calcium 10.1 mg/dL (8.4-10.2); Carbon Dioxide 26 mmol/L (22-29); Chloride 104 mmol/L (96-108); Creatinine Clr Calc Pharmacy 59.1; Estimated Glomerular Filt Rate > 60; Glucose Random 117 mg/dL (60-115); Magnesium 1.9 mg/dL (1.6-2.6); Sodium 142 mmol/L (135-145); Total Protein 7.5 g/dL (6.5-8.0)
[2022-11-14 15:43] LABS: Troponin-I High Sensitivity 2.8 ng/L (<3.5-17.0)
[2022-11-14 16:36] VITALS: BP 174/83; PULSE 72; RESP 18; TEMP 36.4; O2SAT 95
--- NOTE | 2022-11-14 16:44 | PC.NURSE ---
pt a&ox3, vss, nsr on the cardiac rehabilitation program director. pt comes in d/t headache x2 days. pt verbalizes that she has a hx of hypertension but has it controlled w/ proper medication regimen. pt states last BP medication (amlodipine & losartan) was this morning at 3am when the pain in her head woke her up. pt verbalizes Tylenol administration prior to coming into ED today at 1300. pt states that medication administration did not resolve headache. call acevedo placed within reach. will continue to monitor.
[2022-11-14] MEDS: 0.9 % Sodium Chloride 1,000 ML 999 ML IV (18:03)
[2022-11-14] MEDS: Gabapentin 300 MG CAPSULE PO (18:10)
[2022-11-14] MEDS: Ketorolac Tromethamine 15 MG/ML VIAL IVPUSH (18:11)
[2022-11-14] MEDS: Metoclopramide HCl 10 MG/2 ML VIAL IVPUSH (18:12)
--- NOTE | 2022-11-14 18:16 | PC.NURSE ---
20g IV placed in the right AC w/o complications. IVF and medications administered per provider order.
[2022-11-14] MEDS: Butalb/Acetamin/Caff 50/325/40 TABLET 1 TAB PO (19:09)
[2022-11-14] MEDS: dexAMETHasone sod phosphate 10 MG/ML VIAL IVPUSH (19:10)
== END 2022-11-14 20:47 | disposition home or self-care (01) ==
PROVIDERS: Registered Nurse Emergency; Emergency Provider Emergency Medicine; PCP Internal Medicine
DX: R51.9 Headache, unspecified (principal); I10 Essential (primary) hypertension; Z79.899 Other long term (current) drug therapy
CPT/HCPCS: 36415; 70450; 80053; 81003; 83735; 84484; 85025; 93005; 96361; 96374; 96375; 99284; 99285; J1100; J1885; J2765

== ENCOUNTER → 2022-11-14 14:30 | Outpatient (BNV) | payer MEDICARE, OTHER, SELFPAY | PROVIDERS: Emergency Provider Emergency Medicine; PCP Internal Medicine; Visit Provider Internal Medicine | DX: I10 Essential (primary) hypertension (principal) | CPT/HCPCS: 93010 ==

== ENCOUNTER 2022-11-25 12:21 | Outpatient (REF) | payer MEDICARE, OTHER, SELFPAY ==
[2022-11-25 13:17] LABS: MANUAL DIFF FLAG NO
[2022-11-25 13:44] LABS: Basophils Percent Auto 0.3 % (0-2); Eosinophils Absolute Auto 0.2 X10*3/uL (0.0-0.4); Eosinophils Percent Auto 1.6 % (0-4); Hematocrit 45.6 % (37.0-47.0); Hemoglobin 15.2 g/dl (12.0-16.0); Imm Gran Abs Auto 0.05 X10*3/uL (0.00-0.03); Imm Gran Pct Auto 0.4 % (0.0-0.4); Lymphocytes Absolute Auto 1.9 X10*3/uL (1.2-4.9); Lymphocytes Percent Auto 14.8 % (20-40); Mean Corpuscular HGB Conc 33.3 g/dl (31.0-35.0); Mean Corpuscular Hemoglobin 29.1 pg (27.0-33.0); Mean Corpuscular Volume 87.2 fL (80.0-98.0); Mean Platelet Volume 9.3 fL (9.4-12.3); Monocytes Absolute Auto 0.8 X10*3/uL (0.1-1.2); Monocytes Percent Auto 5.8 % (2-11); Neutrophils Percent Auto 77.1 % (45-73); Platelet Count 180 X10*3/uL (160-400); Red Blood Count 5.23 X10*6/uL (4.20-5.50); Red Cell Distribution Width 14.4 % (11.0-16.0)
[2022-11-25 14:11] LABS: Anion Gap 13 (12-20); Blood Urea Nitrogen 15 mg/dL (9-16); C Reactive Protein 0.34 mg/dL (< or = 0.50); Calcium 9.9 mg/dL (8.4-10.2); Carbon Dioxide 29 mmol/L (22-29); Chloride 105 mmol/L (96-108); Estimated Glomerular Filt Rate 57; Glucose Random 111 mg/dL (60-115); Potassium 4.1 mmol/L (3.3-5.1); Sodium 143 mmol/L (135-145)
[2022-11-25 14:41] LABS: Folate 15.3 ng/mL (> or = 4.0); Vitamin B12 670 pg/mL (200-900)
== END 2022-11-25 12:22 | disposition home or self-care (01) ==
LOC: HO.10HDL 12:21
PROVIDERS: Visit Provider Internal Medicine
DX: I10 Essential (primary) hypertension (principal); K21.9 Gastro-esophageal reflux disease without esophagitis; G62.9 Polyneuropathy, unspecified; Z85.038 Personal history of other malignant neoplasm of large intestine
CPT/HCPCS: 36415; 80048; 82378; 82550; 82607; 82746; 85025; 86140

== ENCOUNTER 2022-12-31 10:04 | Outpatient (AMB) | payer MEDICARE, OTHER, SELFPAY ==
--- NOTE | 2022-12-31 10:38 | MHC.OFFWIV ---
Intake Vital Signs 12/31/22 10:45 Weight 199 lb BP 120/70 Blood Pressure Location Lt brachial Position Sitting Pulse 92 Pulse Source Pulse Oximeter Temp 97.2 F Temp Source Temporal Artery Scan Pulse Oximetry (%) 93 Oxygen Delivery Method Room Air Intake Visit Reasons: EP, cough [phone] Intake Note: Patient here for cough and SOB that has been present for about 1 week. Patient Tobacco Use Status: Never used Tobacco Allergies formaldehyde [FORMALDEHYDE] Allergy (Unknown, Verified 12/31/22 10:59) HIVES Medication List - Last Reconciled 12/31/22 by Edd Sharp MD acetaminophen ER 1,300 mg PO Q8H amlodipine 1 tab PO DAILY celecoxib 200 mg PO DAILY cholecalciferol (vitamin D3) (Vitamin D3) 25 mcg PO DAILY cholestyramine (with sugar) 4 gram ea PO fluticasone propionate 50 mcg/actuation 1 spray intranasal BID gabapentin 2 caps PO BID ipratropium-albuterol 20-100 mcg/actuation (Combivent Respimat) 1 puff inhalation Q6H PRN losartan 1 tab PO DAILY multivitamin 1 tab PO DAILY omeprazole 20 mg PO DAILY oxybutynin chloride ER 1 tab PO DAILY Do you need a note to return to daycare/school/sports/work: No HPI EP, cough [phone] HPI Details Patient presents for a sick visit. Reporting symptoms of sinus congestion, sore throat and difficulty swallowing. Low-grade fever. No family member is sick. No recent travel. Patient reports symptoms of malaise and fatigue. [facility] Medical History Arthritis Asthma Chronic bronchitis GERD (gastroesophageal reflux disease) Hiatal hernia History of colon cancer HTN (hypertension) Hx of thyroid cancer Mild stress incontinence Neuropathy Shortness of breath Surgical History History of appendectomy History of bilateral cataract extraction History of bladder suspension procedure History of colon surgery History of colonoscopy History of esophagogastroduodenoscopy (EGD) History of thyroidectomy History of tonsillectomy and adenoidectomy Hx of section Hx of cholecystectomy Social History Are you a primary chronic care nurse to a significant other at home: No Do you presently have visiting nurse or other home services: No Alcohol intake: never Patient Tobacco Use Status: Never used Tobacco Physical Exam Vital Signs: Last Vital Signs Temp 97.2 F 12/31/22 10:45 Pulse 92 12/31/22 10:45 BP 120/70 12/31/22 10:45 Pulse Ox 93 12/31/22 10:45 Oxygen Delivery Method Room Air 12/31/22 10:45 Const General: cooperative and healthy appearing Nutritional Appearance: well nourished Orientation/consciousness: patient oriented x3 Limitations: no limitations HEENT Head: Yes normal to inspection Eyes General: appearance normal, both eyes and all related structures Neck Neck: Yes normal visual inspection Chest Chest palpation & inspection: normal palpation of entire chest wall Resp Effort & Inspection: normal respiratory effort Neuro General: patient oriented x3 Assessment & Plan Assessment & Plan (1) Upper respiratory tract infection: Code(s): J06.9 - Acute upper respiratory infection, unspecified Plan: Antibiotics ordered. Increase fluid intake. Tylenol for aches and pains. If symptoms worsen, follow-up here for a recheck. Coding Level of Care Code Est Pt Level 3 (39069) Diagnoses Upper respiratory tract infection J06.9
[2022-12-31 10:45] VITALS: BP 120/70; PULSE 92; TEMP 36.2; O2SAT 93
== END 2022-12-31 11:08 | disposition home or self-care (01) ==
PROVIDERS: PCP Internal Medicine; Visit Provider Internal Medicine
DX: J06.9 Acute upper respiratory infection, unspecified (principal)
CPT/HCPCS: 99213

== ENCOUNTER 2023-01-23 13:05 | Outpatient (REF) | payer MEDICARE, OTHER, SELFPAY ==
--- NOTE | ~2023-01-23 | XR_ITS ---
EXAMINATION: XR CHEST CLINICAL INFORMATION: Cough, congestion COMPARISON: 05/02/2022 TECHNIQUE: 2 views of the chest were obtained. FINDINGS: There is no gross pneumothorax. S-shaped thoracolumbar scoliosis with multilevel degenerative changes. The heart size is normal. Stable cardiomediastinal silhouette. Linear bibasilar opacities characteristic of atelectasis. Increased predominantly bibasilar opacities are concerning for pneumonia superimposed on bibasilar atelectasis/scar. XR/XR chest 2V IMPRESSION: Increased predominantly bibasilar opacities are concerning for pneumonia superimposed on bibasilar atelectasis/scar. Recommend follow-up imaging in 4-6 weeks to confirm resolution and exclude underlying pathology. This study was presented today 01/28/2023 at 5:25 AM for interpretation. PSA staff will provide results to referring provider at this time.
== END 2023-01-23 13:06 | disposition home or self-care (01) ==
LOC: HO.XRAY 13:05
PROVIDERS: PCP Internal Medicine; Visit Provider Internal Medicine
DX: R05.9 Cough, unspecified (principal); R09.89 Other specified symptoms and signs involving the circulatory and respiratory systems
CPT/HCPCS: 71046

== ENCOUNTER 2023-04-24 10:40 | Outpatient (REF) | payer MEDICARE, OTHER, SELFPAY ==
--- NOTE | ~2023-04-24 | XR_ITS ---
EXAMINATION: XR CHEST CLINICAL INFORMATION: Covid, cough, crackles. COMPARISON: Chest radiograph 01/23/2023. TECHNIQUE: 2 views of the chest were obtained. FINDINGS: Stable appearance of the cardiomediastinal silhouette. Increased bibasilar linear like opacities, for instance projecting over the lower thoracic spine on the lateral view. Similar degree of diffuse interstitial prominence. No focal consolidation, pleural effusion or pneumothorax. Again noted S-shaped thoracolumbar scoliosis with degenerative changes of the spine and decreased bone mineralization. No acute osseous findings. Visualized upper abdomen is within normal limits. XR/XR chest 2V IMPRESSION: 1. No focal consolidation, pleural effusion or pneumothorax. 2. Increased bibasilar linear-like opacities that could represent subsegmental atelectasis or scarring, although other interstitial lung abnormalities such as lung injury sequela of Covid cannot be excluded. Further evaluation with CT chest as clinically warranted.
[2023-04-24 11:09] LABS: MANUAL DIFF FLAG NO
[2023-04-24 11:59] LABS: Basophils Absolute Auto 0.1 X10*3/uL (0.0-0.2); Basophils Percent Auto 0.4 % (0-2); Eosinophils Absolute Auto 0.2 X10*3/uL (0.0-0.4); Eosinophils Percent Auto 1.1 % (0-4); Hematocrit 41.5 % (37.0-47.0); Hemoglobin 13.9 g/dl (12.0-16.0); Imm Gran Abs Auto 0.07 X10*3/uL (0.00-0.03); Imm Gran Pct Auto 0.5 % (0.0-0.4); Lymphocytes Absolute Auto 1.4 X10*3/uL (1.2-4.9); Lymphocytes Percent Auto 9.9 % (20-40); Mean Corpuscular HGB Conc 33.5 g/dl (31.0-35.0); Mean Corpuscular Hemoglobin 28.5 pg (27.0-33.0); Monocytes Absolute Auto 1.1 X10*3/uL (0.1-1.2); Monocytes Percent Auto 7.6 % (2-11); Neutrophils Absolute Auto 11.7 x10*3/uL (2.0-8.3); Neutrophils Percent Auto 80.5 % (45-73); Platelet Count 257 X10*3/uL (160-400); Red Blood Count 4.88 X10*6/uL (4.20-5.50); Red Cell Distribution Width 13.2 % (11.0-16.0); White Blood Count 14.6 X10*3/uL (4.8-10.8)
[2023-04-24 12:48] LABS: Alanine Aminotransferase 14 U/L (0-31); Albumin Level 3.9 g/dL (3.5-5.0); Alkaline Phosphatase 79 U/L (39-117); Anion Gap 14 (12-20); Aspartate Amino Transferase 18 U/L (5-31); Bilirubin Total 0.5 mg/dL (0.0-1.0); Blood Urea Nitrogen 21 mg/dL (9-16); Calcium 9.8 mg/dL (8.4-10.2); Carbon Dioxide 28 mmol/L (22-29); Chloride 104 mmol/L (96-108); Estimated Glomerular Filt Rate 47; Glucose Random 118 mg/dL (60-115); Potassium 3.8 mmol/L (3.3-5.1); Sodium 142 mmol/L (135-145); Total Protein 6.9 g/dL (6.5-8.0)
== END 2023-04-24 10:41 | disposition home or self-care (01) ==
LOC: HO.XRAY 10:40
PROVIDERS: PCP Internal Medicine; Visit Provider Internal Medicine
DX: U07.1 COVID-19 (principal); R05.9 Cough, unspecified; J98.4 Other disorders of lung; Z86.16 Personal history of COVID-19
CPT/HCPCS: 36415; 71046; 80053; 85025

== ENCOUNTER 2023-07-25 09:17 | Outpatient (REF) | payer MEDICARE, OTHER, SELFPAY ==
--- NOTE | ~2023-07-25 | MM_ITS ---
EXAMINATION: MM SCREENING DIGITAL BREAST TOMOSYNTHESIS, BILATERAL CLINICAL INFORMATION: Screening. Asymptomatic. COMPARISON: Mammography: This study is compared with prior exams dating back to 2019. TECHNIQUE: Digital breast tomosynthesis is performed in both the craniocaudal and mediolateral oblique views along with computer-aided detection (CAD). Synthesized 2D images are generated from the tomosynthesis. FINDINGS: There are scattered areas of fibroglandular density (ACR BI-RADS breast composition Category b). There are no significant masses, abnormal calcifications, or other abnormalities. Few, unchanged, coarse, benign calcifications of the central portion of the right breast are present. MM/MM tomosynthesis screening BI IMPRESSION: No mammographic evidence of malignancy. ASSESSMENT: BI-RADS BI-RADS 2 - Benign Findings RECOMMENDATION: Routine annual mammography screening. 1 year F/U This examination should not preclude the clinical evaluation of a suspicious palpable abnormality. This patient's information was entered into a reminder system with a target due date for their next mammogram.
== END 2023-07-25 09:18 | disposition home or self-care (01) ==
LOC: HO.MAMMO 09:17
PROVIDERS: PCP Internal Medicine; Visit Provider Internal Medicine
DX: Z12.31 Encounter for screening mammogram for malignant neoplasm of breast (principal)
CPT/HCPCS: 77063; 77067

== ENCOUNTER → 2023-07-25 09:30 | Outpatient (BNV) | payer MEDICARE, OTHER, SELFPAY | PROVIDERS: PCP Internal Medicine; Visit Provider Radiology Diagnostic Radiology | DX: Z12.31 Encounter for screening mammogram for malignant neoplasm of breast (principal) | CPT/HCPCS: 77063; 77067 ==

== ENCOUNTER 2023-12-18 11:12 | Outpatient (REF) | payer MEDICARE, OTHER, SELFPAY ==
[2023-12-18 12:55] LABS: C Reactive Protein 0.37 mg/dL (< or = 0.50)
[2023-12-18 13:07] LABS: Erythrocyte Sedimentation Rate 10 MM/HR (0-20)
[2023-12-18 13:13] LABS: Free T4 (Free Thyroxine) 0.93 ng/dL (0.71-1.85); Thyroid Stimulating Hormone 3.99 uIU/mL (0.32-4.0)
[2023-12-18 13:25] LABS: Folate 12.3 ng/mL (> or = 4.0); Vitamin B12 > 2000 pg/mL (200-900)
[2023-12-19 09:14] LABS: EBV-VCA IgM Ab <36.00 U/mL
[2023-12-19 09:33] LABS: Thyroid Peroxidase Antibodies 35 IU/mL (<9)
[2023-12-22 11:50] LABS: Anti Nuclear Antibody Screen NEGATIVE (NEGATIVE)
[2023-12-22 14:17] LABS: Methylmalonic Acid 280 nmol/L (85-423)
[2023-12-23 14:03] LABS: Magnesium, RBC 4.6 mg/dL (4.0-6.4)
== END 2023-12-18 11:13 | disposition home or self-care (01) ==
LOC: HO.LAB 11:12
PROVIDERS: Visit Provider Nurse Practitioner Family
DX: G90.09 Other idiopathic peripheral autonomic neuropathy (principal); R53.83 Other fatigue
CPT/HCPCS: 36415; 82607; 82746; 83735; 83789; 83921; 84439; 84443; 84481; 85652; 86038; 86140; 86376; 86664; 86665

== ENCOUNTER 2024-02-12 13:21 | Outpatient (AMB) | payer MEDICARE, OTHER, SELFPAY ==
--- NOTE | 2024-02-12 13:37 | AM.OFFWIN_ITS ---
Intake Vital Signs 02/12/24 13:38 Height 5 ft 6 in Weight 190 lb BMI 30.7 BP 160/110 H Blood Pressure Location Lt brachial Position Sitting Pulse 86 Pulse Source Pulse Oximeter Pulse Oximetry (%) 95 Oxygen Delivery Method Room Air Intake Visit Reasons: EP-rt knee pain/swollen Intake Note: Patient here for right knee pain/swelling that started Friday. She is having difficulties walking. Patient Tobacco Use Status: Never used Tobacco Allergies formaldehyde [FORMALDEHYDE] Allergy (Unknown, Verified 02/12/24 13:40) HIVES Do you need a note to return to daycare/school/sports/work: No HPI HPI Comments History of Present Illness Details This is an 83-year-old female with a past medical history of hypertension, arthritis and peripheral neuropathy presenting for evaluation of right knee pain that started on Friday morning. Patient states that she has a long history of arthritis for which she sees [facility] in [place], [place]. Patient states that she had no knee pain on Friday and denies any injury to her right knee, right hip or right lower extremity. Patient states she woke up on Friday morning with significant pain in her right anterior knee that does not radiate. Patient has taken Tylenol without relief for discomfort. Patient denies being in pain at this time while seated but states the pain is present when bearing weight and ambulating. Patient states it has been recommended to her to have a total right knee replacement however she has declined to date. [facility] Medical History (Updated 02/12/24 @ 14:23 by Maya De Souza PA-C) Neuropathy Asthma Arthritis Hx of thyroid cancer History of colon cancer Hiatal hernia GERD (gastroesophageal reflux disease) Mild stress incontinence Shortness of breath Chronic bronchitis HTN (hypertension) Surgical History History of esophagogastroduodenoscopy (EGD) History of colonoscopy History of colon surgery History of bladder suspension procedure Hx of section History of bilateral cataract extraction History of appendectomy Hx of cholecystectomy History of tonsillectomy and adenoidectomy History of thyroidectomy Social History Are you a primary daycare assistant to a significant other at home: No Do you presently have visiting nurse or other home services: No Alcohol intake: never Patient Tobacco Use Status: Never used Tobacco Review of Systems Const All systems reviewed & are unremarkable except as noted in HPI and below Reports no additional complaints Eyes Reports no additional complaints ENT Reports no additional complaints Card Reports no additional complaints Resp Reports no additional complaints Reports no additional complaints Musc Reports abnormal gait, Reports arthralgias (right knee), Reports limited range of motion and Denies stiffness Skin/Breast Reports system reviewed and no additional complaints, except as documented Neuro Reports abnormal gait Psych Reports no additional complaints Physical Exam Vital Signs: Last Vital Signs Pulse 86 02/12/24 13:38 BP 160/110 H 02/12/24 13:38 Pulse Ox 95 02/12/24 13:38 Oxygen Delivery Method Room Air 02/12/24 13:38 BMI result Body Mass Index 30.7 Recheck of BP 168/106. Const General: cooperative, healthy appearing, comfortable, no acute distress, well developed, alert and awake Nutritional Appearance: obese Orientation/consciousness: patient oriented x3 Limitations: ambulation with cane Skin General skin exam: no rashes or lesions noted Neuro General: patient oriented x3 Extrem General: Yes no joint enlargement and Yes no calf tenderness Right lower extremity: full ROM (passive ROM right knee intact; no erythema, no warmth to touch), no joint enlargement and knee Details: normal to inspection, tenderness (superior knee at quadriceps tendon and medial superior knee) Location: of the patella and of the medial joint line and knee ligament exam abnormal; no edema Left lower extremity: normal to inspection Psych Appearance: grossly normal Mental Status: mental status grossly normal Insight: Good insight present (Psych) Judgement: Good judgement present (Psych) Assessment & Plan Assessment & Plan (1) Right knee pain: Comment: Given her chronic arthritis and atraumatic right knee pain, imaging will be deferred today. Code(s): M25.561 - Pain in right knee Qualifiers: Chronicity: acute Qualified Code(s): M25.561 - Pain in right knee Plan: Patient is provided compression with an Andrews bandage and will be discharged home with Naprosyn to take for the next 10 days. Patient will follow up with the [facility] in [place] for ongoing management of her discomfort. Patient is encouraged to use her cane for safe ambulation. (2) HTN (hypertension): Comment: Patient states that she is compliant with her antihypertensive medication regimen daily and has not had her blood pressure checked for at least 4-5 months. Code(s): I10 - Essential (primary) hypertension Qualifiers: Hypertension type: unspecified Qualified Code(s): I10 - Essential (primary) hypertension Plan: Patient will follow up with her primary care physician within 10-14 days for a recheck of her blood pressure and until that time we will check her blood pressure in the community and record values in anticipation of seeing her PCP. Medications: New naproxen (Naprosyn) 500 mg PO BID 20 tabs 0RF Coding Level of Care Code Est Pt Level 3 (17952) Diagnoses Acute pain of right knee M25.561 Chronicity: acute Hypertension, unspecified type I10 Hypertension type: unspecified Time Spent (min) 20
[2024-02-12 13:38] VITALS: BP 160/110; PULSE 86; O2SAT 95; BMI 30.7
== END 2024-02-12 14:39 | disposition home or self-care (01) ==
PROVIDERS: PCP Internal Medicine; Visit Provider Physician Assistant
DX: M25.561 Pain in right knee (principal); I10 Essential (primary) hypertension

== ENCOUNTER → 2024-02-12 13:21 | Outpatient (BNVA) | payer MEDICARE, OTHER, SELFPAY | PROVIDERS: PCP Internal Medicine; Visit Provider Physician Assistant | DX: M25.561 Pain in right knee (principal); I10 Essential (primary) hypertension | CPT/HCPCS: 99212 ==

== ENCOUNTER 2024-02-19 10:26 | Outpatient (REF) | payer MEDICARE, OTHER, SELFPAY ==
[2024-02-19 11:17] LABS: MANUAL DIFF FLAG NO
[2024-02-19 11:54] LABS: Basophils Percent Auto 0.5 % (0-2); Eosinophils Absolute Auto 0.2 X10*3/uL (0.0-0.4); Eosinophils Percent Auto 2.6 % (0-4); Hematocrit 41.7 % (37.0-47.0); Hemoglobin 14.3 g/dl (12.0-16.0); Imm Gran Abs Auto 0.01 X10*3/uL (0.00-0.03); Imm Gran Pct Auto 0.1 % (0.0-0.4); Lymphocytes Percent Auto 12.9 % (20-40); Mean Corpuscular HGB Conc 34.3 g/dl (31.0-35.0); Mean Corpuscular Hemoglobin 29.9 pg (27.0-33.0); Mean Corpuscular Volume 87.1 fL (80.0-98.0); Mean Platelet Volume 9.5 fL (9.4-12.3); Monocytes Absolute Auto 0.7 X10*3/uL (0.1-1.2); Monocytes Percent Auto 8.9 % (2-11); Neutrophils Absolute Auto 5.5 x10*3/uL (2.0-8.3); Platelet Count 162 X10*3/uL (160-400); Red Blood Count 4.79 X10*6/uL (4.20-5.50); Red Cell Distribution Width 13.2 % (11.0-16.0); White Blood Count 7.4 X10*3/uL (4.8-10.8)
[2024-02-19 12:03] LABS: Appearance Urine Turbid; Color Urine Yellow; Glucose Urine UA Negative (Negative); Leukocyte Esterase Urine Small (1+) (Negative); Nitrite Urine Negative (Negative); Specific Gravity - Urine 1.025 (1.005-1.025); UMIC TRIGGER UACC YES; Urine Blood Negative (Negative); Urine Ketones Trace mg/dL (Negative); Urine Protein Trace mg/dL (Neg-Trace)
[2024-02-19 12:08] LABS: Bacteria Urine 3+ (None Seen); Hyaline Casts Urine 0-2 /LPF (0-2); RBC Urine 0-2 /HPF (0-2); Squamous Epithelial Cell Urine >20 /HPF (0-2); UACC Culture Trigger YES
[2024-02-19 12:25] LABS: Alanine Aminotransferase 14 U/L (0-31); Albumin Level 4.3 g/dL (3.5-5.0); Alkaline Phosphatase 80 U/L (39-117); Anion Gap 13 (12-20); Aspartate Amino Transferase 22 U/L (5-31); Bilirubin Total 0.7 mg/dL (0.0-1.0); Blood Urea Nitrogen 17 mg/dL (9-16); Calcium 10.1 mg/dL (8.4-10.2); Carbon Dioxide 28 mmol/L (22-29); Chloride 106 mmol/L (96-108); Cholesterol 126 mg/dL (<200); Estimated Glomerular Filt Rate > 60; Glucose Random 92 mg/dL (60-115); Potassium 4.2 mmol/L (3.3-5.1); Sodium 143 mmol/L (135-145); Total Protein 6.9 g/dL (6.5-8.0)
[2024-02-19 12:47] LABS: Vitamin B12 1068 pg/mL (200-900)
[2024-02-19 12:56] LABS: Free T4 (Free Thyroxine) 1.02 ng/dL (0.71-1.85); Thyroid Stimulating Hormone 2.97 uIU/mL (0.32-4.0); Vitamin D 25-OH Total 63.3 ng/mL (>30)
== END 2024-02-19 10:27 | disposition home or self-care (01) ==
LOC: HO.LAB 10:26
PROVIDERS: PCP Internal Medicine; Visit Provider Internal Medicine
DX: I10 Essential (primary) hypertension (principal); K58.9 Irritable bowel syndrome, unspecified; K21.9 Gastro-esophageal reflux disease without esophagitis; G62.9 Polyneuropathy, unspecified; E03.9 Hypothyroidism, unspecified; R82.90 Unspecified abnormal findings in urine
CPT/HCPCS: 36415; 80053; 81001; 81003; 82306; 82465; 82607; 83970; 84439; 84443; 85025; 86140; 87086

== ENCOUNTER 2024-02-20 06:14 | Outpatient (REF) | payer MEDICARE, OTHER, SELFPAY ==
[2024-02-20 08:12] LABS: Parathyroid Hormone Intact 49.5 pg/mL (8.7-77.1)
== END 2024-02-20 06:15 | disposition home or self-care (01) ==
LOC: HO.LAB 06:14
PROVIDERS: PCP Internal Medicine; Visit Provider Internal Medicine
DX: I10 Essential (primary) hypertension (principal); K21.9 Gastro-esophageal reflux disease without esophagitis; K58.9 Irritable bowel syndrome, unspecified
CPT/HCPCS: 36415; 83970

== ENCOUNTER 2024-04-02 11:36 | Outpatient (REF) | payer MEDICARE, OTHER, SELFPAY ==
--- OUTSIDE RECORDS SUMMARY | 2024-04-02 11:41 | XMS_ITS | Patient Health Record ---
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 Role Phone Anibal Tucker MD Primary Care Provider UnavailJer Austin Unavailable [phone] Jer Zelaya MD Unavailable Unavailable Allergies Allergen (clinical drug ingredient) Drug/Non Drug Allergy documented on EMR Reaction Allergy Type Onset Date Status No Known Drug Allergy Unknown Drug Allergy Active Reason For Referral No Information Medications Medication SIG (Take, Route, Frequency, Duration) Notes Start Date End Date Status Fluconazole Active oxyBUTYnin Chloride ER 10 MG 1 tablet Orally Once a day Active amLODIPine Besylate 10 MG 1 tablet Orall y Once a day Active Omeprazole 20 MG 1 capsule Orally Onc e a day Active Combivent Respimat A ctive Celecoxib 200 MG TAKE 1 CAPSULE BY [facility] DAILY (STOP IBUPROFEN) Oral Active Vitamin D 1000 UNIT 1 tablet Orally Once a day Active Gabapentin 300 MG TAKE 1 CAPSULE BY [facility] FOUR TIMES A DAY FOR 30 DAYS for 30 Active Losartan Potassium 100 MG 1 tablet Orall y Once a day Active Social History Tobacco Use: Social History Observation Description Date Details (start date - stop date) Never Smoker NA - NA Tobacco Use/Smoking Question Answer Notes Patient is a nonsmoker Additional Findings: Tobacco Non-User Aggressive non-smoker Alcohol Screen Question Answer Notes Did you have a drink containing alcohol in the p ast year? No Points 0 Interpretation Negative Problems Problem Type SNOMED Code ICD Code Onset Dates Problem Status W/U Status Risk Notes Problem 85293691 Iron deficiency (E61.1) Active confirmed Her CBC is unremarkable and the iron deficiency has resolved. 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 She is able to live her life normally, however. Problem 368653816 Obesity (BMI 30-39.9) (E66.9) Active confirmed Since her last visit she has lost 4 pounds. Her body mass index is 33 Her nutritional status seems adequate. Her appetite is good and no sign of cancer recurrence was noted. I recommend she continue to lose weight at a moderate pace until the body mass index is normal. Problem 932787619 Gastroesophageal reflux disease, esophagitis presence not specified (K21.9) Active confirmed Her esophageal reflux is well controlled with [id number] ter medication. No change in her regimen is necessary today. 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 This should be no problem with her adjuvant chemotherapy. 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 Surveillance will continue. The rectal examination and stool guaiac today was unremarkable. Problem 00916407 Hypertension, unspecified type (I10) Active confirmed Her blood pressure is in the normal range today is 130/80. No change in her regimen as indicated. Problem 88122320 Irritable bowel syndrome, unspecified type (K58.9) Active confirmed His irritable bowel syndrome is quiet at this time and not bothering her much. Problem 180459329 Folic acid deficiency (E53.8) Active confirmed Her primary care physician, Dr. Tucker, has begun on folic acid. I will speak to him about the low iron in the trending low vitamin B12 is well. Problem 817625342 Neuropathic pain (M79.2) Active confirmed Her pain is present but minimal at this time. She is able to conduct all the activities of daily life without impairment. She is continuing current therapy which is controlling the symptomatic lately. Problem [id number] Arthritis of right knee (M17.11) Active confirmed Vital Signs Heart Rate 80 /min 06/26/2023 Temperature 98.4 degrees Fahrenheit 06/26/2023 Blood pressure diastolic 78 mm Hg 06/26/2023 Height 65 in 06/26/2023 Blood pressure systolic 136 mm Hg 06/26/2023 Weight 197 lbs 06/26/2023 BMI 32.78 kg/m2 06/26/2023 Encounters Encounter Location Date Provider Diagnosis Jer Gill III, MD [address] [place] [address] [place] [address] 06/26/2023 Jer Gill Hypertension, unspec ified type I10 ; Irritable bowel syndrome, unspecified type K58.9 ; Gastroesophageal reflux disease, esophagitis presence not specified K21.9 ; Adenocarcinoma of transverse colon C18.4 ; Obesity (BMI 30-39.9) E66.9 ; Iron deficiency E61.1 ; Drug-induced polyneuropathy G62.0 ; Asthma due to environmental allergies J45.909 and Arthritis of right knee M17.11 Assessments Encounter Date Diagnosis (ICD Code) Assessment Notes Treat ment Notes Treatment Clinical Notes 06/26/2023 Hypertension, unspecified type (ICD-10 - I10) Her blood pressure is in the normal range today is 130/80. No change in her regimen as indicated. 06/26/2023 Irritable bowel syndrome, unspecified type (ICD-10 - K58.9) His irritable bowel syndrome is quiet at this time and not bothering her much. 06/26/2023 Gastroesophageal reflux disease, esophagitis presence not specified (ICD-10 - K21.9) Her esophageal reflux is well controlled with cgwv-oih-illeadt medication. No change in her regimen is necessary today. 06/26/2023 Adenocarcinoma of transverse colon (ICD-10 - C18.4) There is no sign of recurrent cancer today. Surveillance will continue. The rectal examination and stool guaiac today was unremarkable. 06/26/2023 Obesity (BMI 30-39.9 ) (ICD-10 - E66.9) Since her last visit she has lost 4 pounds. Her body mass index is 33 Her nutritional status seems adequate. Her appetite is good and no sign of cancer recurrence was noted. I recommend she continue to lose weight at a moderate pace until the body mass index is normal. 06/26/2023 Iron deficiency (ICD-10 - E61.1) Her CBC is unremarkable and the iron deficiency has resolved. 06/26/2023 Drug-induced polyneuropathy (ICD-10 - G62.0) There was no change in the neuropathy since her last visit. She is able to live her life normally, however. 06/26/2023 Asthma due to environmental allergies (ICD-10 - J45.909) Her asthma is well controlled and she is not wheezing today. This should be no problem with her adjuvant chemotherapy. 06/26/2023 Arthritis of right knee (ICD-10 - M17.11) Plan Of Treatment Pending Test Test Name Order Date PROFILE, RANDOM (COMPREHENSIVE METABOLIC ) 03/19/2019 PROFILE, RANDOM (COMPREHENSIVE METABOLIC ) 10/21/2017 PROFILE, RANDOM (COMPREHENSIVE METABOLIC ) 01/07/2018 PROFILE, RANDOM (COMPREHENSIVE METABOLIC ) 11/12/2017 PROFILE, RANDOM (COMPREHENSIVE METABOLIC ) 12/18/2018 PROFILE, RANDOM (COMPREHENSIVE METABOLIC ) 05/05/2018 PROFILE, RANDOM (COMPREHENSIVE METABOLIC ) 12/10/2017 FREE T4 (FT4) 03/19/2019 TSH (THYROID STIMULATING HORMONE) 2018 CEA 05/05/2018 CEA 10/21/2017 CEA 01/07/2018 CEA 11/12/2017 CEA 12/18/2018 CEA 03/19/2019 CBC w DIFF 12/10/2017 CBC w DIFF 05/05/2018 CBC w DIFF 10/21/2017 CBC w DIFF 01/07/2018 CBC w DIFF 11/12/2017 CBC w DIFF 12/18/2018 CBC w DIFF 03/19/2019 SED RATE (ESR) 12/18/2018 MAMMOGRAM DIGITAL BILATERAL SCREEN 06/21 Next Appt Details Provider Name:Jer Gill, 06/25/2024 10:30:00 AM, [address] [place] [address] [address] [address], [place], [address], Insurance Providers Payer Name Payer Address Payer Phone Subscriber Number Group Number Insured Name Patient Relationship to Insured Coverage Start Date Coverage End Date MEDICARE NGS [address] [place] [phone] [id number] KENYETTA LEO Self - patient is the insured [address] [place] [phone] [id number] KENYETTA LEO Self - patient is the insured Medical (General) History Medical History History ICD Code Asthma, unspecified asthma s everity, unspecified whether complicated, unspecified whether persistent J45.909 Hypertension, unspecified type I10 Gastroesophageal reflux disease, esophag itis presence not specified K21.9 Urinary incontinence, unspecified type R 32 IBS cancer of the transverse colon 2018 obesity hemithyroidectomy for hyperparathyroidis m Surgical History Surgery Date(Month/Year) colonoscopy 19 cataract-lens implant both eyes 2007 rectal prolapse surgey 2004 hemithyroidectomy for parathyroid diseas e 2016 bladder suspension 2004 partial hysterectomy 2003 cholecystectomy 1979 appendectomy 1959 tonsillectomy and adenoidectomy 1955
--- OUTSIDE RECORDS SUMMARY | 2024-04-02 11:41 | XMS_ITS ---
Author Organization Jer Gill III, MD Address [address] [address] Care Team Providers Care Scientific Aide Name Role Phone Anibal Tucker MD Primary Care Provider UnavailJer Austin Unavailable [phone] Jer Zelaya MD Unavailable Unavailable Allergies Allergen (clinical drug ingredient) Drug/Non Drug Allergy documented on EMR Reaction Allergy Type Onset Date Status No Known Drug Allergy Unknown Drug Allergy Active REASON FOR VISIT History of colon cancer, Iron deficiency, History of folic acid deficiency, Neuropathic pain, Obesity, GERD, Hypertension Medications Medication SIG (Take, Route, Frequency, Duration) Notes Start Date End Date Status Fluconazole Active Gabapentin 300 MG TAKE 1 CAPSULE BY [facility] FOUR TIMES A DAY FOR 30 DAYS ORALLY 4 TIMES A DAY 30 DAYS Active Celecoxib 200 MG TAKE 1 CAPSULE BY [facility] DAILY (STOP IBUPROFEN) Oral Active Vitamin D 1000 UNIT 1 tablet Orally Once a day Active Losartan Potassium 100 MG 1 tablet Orall y Once a day Active oxyBUTYnin Chloride ER 10 MG 1 tablet Orally Once a day Active amLODIPine Besylate 10 MG 1 tablet Orall y Once a day Active Omeprazole 20 MG 1 capsule Orally Onc e a day Active Combivent Respimat A ctive Social History Tobacco Use: Social History Observation Description Date Details (start date - stop date) Never Smoker NA - NA Tobacco Use/Smoking Question Answer Notes Patient is a nonsmoker Additional Findings: Tobacco Non-User Aggressive non-smoker Alcohol Screen Question Answer Notes Did you have a drink containing alcohol in the p ast year? No Points 0 Interpretation Negative Vital Signs Temperature 98.4 degrees Fahrenheit 06/26/19 24 Blood pressure systolic 136 mm Hg 06/26/19 24 Blood pressure diastolic 78 mm Hg 024 Heart Rate 80 /min 06/26/2023 Height 65 in 06/26/2023 Weight 197 lbs 06/26/2023 BMI 32.78 kg/m2 06/26/2023 Encounters Encounter Location Date Provider Diagnosis Jer Gill III, MD [address] [place] [address] [place] [address] 06/26/2023 Jer Gill Hypertension, unspec ified type [...] Her esophageal reflux is well controlled with rasu-yxu-bdsmuzb medication. No change in her regimen is [...] knee (ICD-10 - M17.11) Plan Of Treatment Medication Medication Name Sig Start Date Stop Date Notes Fluconazole Gabapentin 300 MG TAKE 1 CAPSULE BY [facility] FOUR TIMES A DAY FOR 30 DAYS ORALLY 4 TIMES A DAY 30 DAYS Celecoxib 200 MG TAKE 1 CAPSULE BY [facility] DAILY (STOP IBUPROFEN) Oral Vitamin D 1000 UNIT 1 tablet Orally Once a day Losartan Potassium 100 MG 1 tablet Orally Once a day oxyBUTYnin Chloride ER 10 MG 1 tablet Orally Once a day amLODIPine Besylate 10 MG 1 tablet Orally Once a day Omeprazole 20 MG 1 capsule Orally Once a day Combivent Respimat Next Appt Details Follow Up: 1 Year, Reason: O V Provider Name:Jer Gill, 06/25/2024 10:30:00 AM, [address] [place] [address] [address], [place], [address], Progress Notes * MIKHAIL LEOOB: 2 (83 yo F)Acc No.[id number]:06/26/2023 Progress Notes Patient:?KENYETTA LEO Provider:?Jer Gill MD :1940???Age:83 Y???Sex:Female D ate:06/26/2023 Address:[address] [place] [address] [id number] Pcp:Anibal Tucker MD Subjective: * Chief Complaints: * ???History of colon cancerIr on deficiencyHistory of folic acid deficiencyNeuropathic painObesityGERDHypertension * HPI: ???COVID-19 Screening:? 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 Since her last visit she has had no further symptoms of recurrence or new primary. Her attendant children's institution has suggested she have surgery on her right knee. She is debating this. Her examination today was unremarkable. ?Questions?Have you experienced fever, chills, cough, sore throat, shortness of breath, difficulty breathing, muscle aches, loss of taste or smell??No ?Have you been exposed to the virus within the last 10 days??No ?Have you travelled internationally in the last 10 days??No ?Have you been exposed to COVID-19 in the past??Yes * ROS:?General/Constitutional:?pain?Hips knees and shoulders.?Chills?denies.?Fatigue?admits.?Fever?denies.?ENT:?Decreased hearing?denies.?Respiratory:?Cough?denies.?Cardiovascular:?Chest pain with exertion?denies.?Dyspnea on exertion?denies.?Shortness of breath?denies.?Gastrointestinal:?Constipation?occasional.?Decreased appetite?denies.?Diarrhea?that is frequent.?Heartburn?denies.?Nausea?denies.?Rectal bleeding?denies.?Vomiting?denies.?Hematology:?bruising?denies.?petechiae?denies.?Swollen glands?none have been noted.?Genitourinary:?Frequent urination?at night.?Musculoskeletal:?Muscle aches?denies.?Painful joints?Knees.?Sciatica?denies.?Weakness?denies.?Skin:?Itching?denies.?Rash?denies.?Skin lesion(s)?denies.?Neurologic:?Difficulty speaking?denies.?Dizziness?denies.?Headache?denies.?Low back pain?denies.?Psychiatric:?Depressed mood?which is mild.? * Medical History:? * Surgical History:?tonsillect savanna and adenoidectomy 1956appendectomy 1960cholecystectomy 1980partial hysterectomy 2004bladder suspension 2004hemithyroidectomy for parathyroid disease 2016rectal prolapse surgey 2004cataract-lens implant both eyes 2007colonoscopy 19 * Hospitalization/Major Diagno stic Procedure:?Denies Past Hospitalization * Family History:?Father: dece ased, CAD,DM, diagnosed with CVD.?Mother: , Cancer of the kidney.?2 brother(s) , 1 sister(s) - healthy. 3 daughter(s) - healthy. .? There is no family history of cancer of the breast, colon, rectum or prostate. A sister has epilepsy. All 3 daughters have autoimmune diceases. * Social History:?Tobacco Use:?Tobacco Use/Smoking?Patient is a?nonsmoker ?Additional Findings: Tobacco Non-User?Aggressive non-smoker ???Drugs/Alcohol:?Drugs?Have you used drugs other than those for medical reasons in the past 12 months??No ?Alcohol Screen?Did you have a drink containing alcohol in the past year??No ?Points?0 ?Interpretation?Negative ???She is not working and lives at home with her family. * Medications:?TakingFluconazo le amLODIPine Besylate 10 MG Tablet 1 tablet Orally Once a dayoxyBUTYnin Chloride ER 10 MG Tablet Extended Release 24 Hour 1 tablet Orally Once a dayCombivent Respimat , Notes: as neededOmeprazole 20 MG Capsule Delayed Release 1 capsule Orally Once a dayVitamin D 1000 UNIT Tablet 1 tablet Orally Once a dayLosartan Potassium 100 MG Tablet 1 tablet Orally Once a dayGabapentin 300 MG Capsule TAKE 1 CAPSULE BY MOUTH FOUR TIMES A DAY FOR 30 DAYS ORALLY 4 TIMES A DAY 30 DAYS Celecoxib 200 MG Capsule TAKE 1 CAPSULE BY MOUTH DAILY (STOP IBUPROFEN) Oral Medication List reviewed and reconciled with the patientTaking Fluconazole Taking amLODIPine Besylate 10 MG Tablet 1 tablet Orally Once a dayTaking oxyBUTYnin Chloride ER 10 MG Tablet Extended Release 24 Hour 1 tablet Orally Once a dayTaking Combivent Respimat , Notes: as neededTaking Omeprazole 20 MG Capsule Delayed Release 1 capsule Orally Once a dayTaking Vitamin D 1000 UNIT Tablet 1 tablet Orally Once a dayTaking Losartan Potassium 100 MG Tablet 1 tablet Orally Once a dayTaking Gabapentin 300 MG Capsule TAKE 1 CAPSULE BY MOUTH FOUR TIMES A DAY FOR 30 DAYS ORALLY 4 TIMES A DAY 30 DAYS Taking Celecoxib 200 MG Capsule TAKE 1 CAPSULE BY MOUTH DAILY (STOP IBUPROFEN) Oral Medication List reviewed and reconciled with the patient * Allergies:?No Known Drug All ergyno[Allergies Verified] Objective: * Vitals:?Ht: 65, Wt:197, BMI: 32.78, BP:136/78, HR:80, Temp:98.4, Wt-k.36. * Examination: ???General Examination: ?GENERAL APPEARANCE:?pleasant, well nourished, well developed, in no acute distress, calm and relaxed , obese , elderly woman.?HEAD:?atraumatic, normocephalic.?EYES:?eomi, perrla, anicteric, conjugate.?EARS:?normal.?NOSE:?septum intact.?ORAL CAVITY:?normal, unremarkable.?NECK/THYROID:?no jugular venous distention, no carotid bruit, thyroid normal.?LYMPH NODES:?no enlarged lymph nodes,spleen normal.?SKIN:?no suspicious lesions, anicteric.?HEART:?no clicks, gallops, murmurs, or rubs, regular rhythm, S1, S2 normal, no s3, or vascular bruits.?LUNGS:?clear to auscultation .?BREASTS:?not examined.?ABDOMEN:?bowel sounds normal, no ascites, no organomegaly, no mass, Old surgical scar.?RECTAL EXAM:?not examined.?MUSCULOSKELETAL:?extremities unremarkable, no clubbing, cyanosis or edema.?PERIPHERAL PULSES:?normal.?NEUROLOGIC:?alert and oriented, cranial nerves 2-12 grossly intact, deep tendon reflexes 2+ symmetrical, motor strength normal upper and lower extremities, sensory exam intact.?PSYCH:?alert, oriented.? Assessment: * Assessment: 1.?Irritable bowel syndrome, unspecified type - K58.9, His irritable bowel syndrome is quiet at this time and not bothering her much.?2.?Hypertension, unspecified type - I10, Her blood pressure is in the normal range today is 130/80. No change in her regimen as indicated.?3.?Gastroesophageal reflux disease, esophagitis presence not specified - K21.9, Her esophageal reflux is well controlled with haji-yxy-dncndcl medication. 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 Surveillance will continue. The rectal examination and stool guaiac today was unremarkable.?5.?Obesity (BMI 30-39.9) - E66.9, Since her last visit she has lost 4 pounds. Her body mass index is 33 Her nutritional status seems adequate. Her appetite is good and no sign of cancer recurrence was noted. 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 She is able to live her life normally, however.?8.?Asthma due to environmental allergies - J45.909, Her asthma is well controlled and she is not wheezing today. This should be no problem with her adjuvant chemotherapy.?9.?Arthritis of right knee - M17.11? Plan: * Treatment: 2.?Others? Continue Gabapentin Capsule, 300 MG, TAKE 1 CAPSULE BY MOUTH FOUR TIMES A DAY FOR 30 DAYS ORALLY 4 TIMES A DAY 30 DAYS.?? * Procedure Codes:? * Preventive Medicine:? ??Counseling:?Care goal follow-up plan:?Counseling for abnormal BMI given?Yes ?Above Normal BMI Follow-up?Dietary management education, guidance, and counseling, Dietary needs education, Exercise promotion: strength training, Exercise promotion: stretching, Feeding regime, Giving encouragement to exercise, Lifestyle education regarding diet, Nutrition / feeding management, Nutrition therapy, Prescribed activity/exercise education, Prescribed diet education, Prescribed dietary intake, Special diet education, Weight monitoring , Intervention, Order not done: Medical or Other reason not done * Follow Up:?1 Year (Reason: O V) * Images: * Sign off status: Completed true * Provider:?Jer Gill MD Date:?06/12 Generated for Printi ng/Harmony/eTransmitting on:?04/02/2024 11:41 AM EST History and Physical Notes * HPI (History of Present Illness) Category Sub-Category Detail Notes COVID-19 Screening Questions Have you had any new onset fever, chills, cough, congestion, sore throat, shortness of breath, muscle aches?: No Have you been exposed to the virus withi n the last 10 days?: No Have you travelled internationally in [facility] last 10 days?: No Have you been exposed to COVID-19 in the past?: Yes Examination Category Sub-Category Detail Notes General Examination GENERAL APPEARANCE: pleasant , well nourished, well developed, in no acute distress, calm and relaxed , obese , elderly woman HEAD: atraumatic, normocep halic EYES: eomi, perrla, anicte brant, conjugate EARS: normal NOSE: septum intact NECK/THYROID: no jugular venous di stention, no carotid bruit, thyroid normal HEART: no clicks, gallops, murmurs, or rubs, regular rhythm, S1, S2 normal, no s3, or vascular bruits LUNGS: clear to auscultatio n ABDOMEN: bowel sounds normal, no ascites, no organomegaly, no mass, Old surgical scar NEUROLOGIC: alert and oriented, cranial nerves 2-12 grossly intact, deep tendon reflexes 2+ symmetrical, motor strength normal upper and lower extremities, sensory exam intact SKIN: no suspicious lesion s, anicteric PERIPHERAL PULSES: normal BREASTS: not examined MUSCULOSKELETAL: extremities unremark able, no clubbing, cyanosis or edema LYMPH NODES: no enlarged lymph no asia,spleen normal RECTAL EXAM: not examined PSYCH: alert, oriented ORAL CAVITY: normal, unremarkable
--- OUTSIDE RECORDS SUMMARY | 2024-04-02 11:41 | XMS_ITS ---
Author Organization Jer Gill III, MD Address [address] [place] [address] Care Team Providers Care Cloth Coverer Name Role Phone Anibal Tucker MD Primary Care Provider Unavaila Jer Groves Unavailable [phone] Jer Zelaya MD Unavailable REASON FOR VISIT Rx Request Medications Medication SIG (Take, Route, Fr equency, Duration) Notes Start Date End Date Status Gabapentin 300 MG TAKE 1 CAPSULE BY [facility] FOUR TIMES A DAY FOR 30 DAYS Orally 4 times a day for 30 days Active Encounters Encounter Location Date Provider Diagnosis Jer Gill III, MD [address] [address] [place] [address] 10/30/2022 Jer Gill Plan Of Treatment Medication Medication Name Sig Start Date Stop Date Notes Gabapentin 300 MG TAKE 1 CAPSULE BY [facility] FOUR TIMES A DAY FOR 30 DAYS Orally 4 times a day for 30 days Next Appt Details Provider Name:Jer Gill, 06/25/2024 10:30:00 AM, [address] [place] [address] [place], [address], Progress Notes * AHMETBRUCETYOB: 2 (82 yo F)Acc No.[id number]:10/30/2022 Patient:?KENYETTA LEO :1940???Age:82 Y???Sex:Female Address:[place], [address] * Refills? Continue Gabapentin Capsule, 300 MG, Orally, 120, TAKE 1 CAPSULE BY MOUTH FOUR TIMES A DAY FOR 30 DAYS, 4 times a day, 30 days, Refills=6 * true * Date:? Generated for Jos parekh/Harmony/Bhavyaitting on:?04/02/2024 11:41 AM EST
--- OUTSIDE RECORDS SUMMARY | 2024-04-02 11:42 | XMS_ITS | Data Portability ---
Author Organization JENNIFER Rpahael s, [address] Address [address] [place] [address] Assessment No assessment recorded. Plan of Treatment Reminders Order Date Submit Date Provider Last Modified By Organization Details Last Modified Time Details Appointments None recorded. Lab None recorded. Referral psychiatrist referral 2023 024 [email or web address] Not available 4 08:06:04 Procedures None recorded. Surgeries None recorded. Imaging XR, foot, 3 or more view 2023 024 [facility], [address] [place], [address], 4 09:55:01 Medication Orders None recorded. Patient TargetsNo targets recorded. Patient InstructionsNo instructions recorded. Reason for Referral Inserter Referral for Rosa Maria pheral nerve disease Referring Physician: Jean-Claude Martinez, Urgent Care, Encounter Date: 09/14/2023 Results Created Date Observation Date Name Description Value Unit Range Abnormal Flag Note LastModifiedBy Organization Detail LastModifiedTime 09/15/1909/15/2023 XR, foot, 3 or more view No observ ation record ed. [email or web address] [facility] [address] [place], [address], 09/15/2023 09:57:33 Result Notes None recorded. Problems Name Problem SNOMED Code Status Onset Date Resolution Date Notes Provider Name and Address Organization Details Recorded Time Neuropathy 191262670 Active 2023 JENNIFER Benson [facility] 4 15:24:11 Hypertensive disorder 33336509 Active 2023 Ghazala Godanielle daniels, [place] - [facility] 4 15:24:18 Malignant tumor of colon 385485596 Active 2023 Ghazala Goarez Jayyjocelyn daniels, [place] - [facility] 4 15:24:45 Problem Notes None recorded. Procedures Surgical History None recorded. Imaging Results Imaging Date Name Status LastModified by Organiz ation Details LastModified Time 09/15/2023 XR, foot, 3 or more view completed [email or web address] [address] [facility] [place], [address], 09/15/2023 09:57:33 Procedure Notes None recorded. Medical Equipment None Reported. Allergies No known drug allergies Medications Name Sig Start Date Stop Date Status Note LastModified by Organization Details LastModified Time celecoxib 200 mg capsule TAKE 1 CAPSULE BY MOUTH DAILY (STOP IBUPROFEN ) active Not Available Not Available No t Available albuterol sulfate 2.5 mg/3 mL (0.083 %) solution for nebulizatio n INHALE 1 VIAL USING NEBULIZER FOUR TIMES A DAY NEEDED. J06.9 active Not Available Not Available No t Available oxybutynin chloride ER 10 mg tablet,exte nded release 24 hr TAKE 1 TABLET BY MOUTH EVERY DAY active Not Available Not Available No t Available azithromyci n 250 mg tablet TAKE 2 TABLETS BY MOUTH TODAY, THEN TAKE 1 TABLET DAILY FOR 4 DAYS 09/13 completed Not Available Not Available Not Available omeprazole 10 mg capsule,del ayed release Take 1 capsule every day by oral route. active Not Available Not Available No t Available amlodipine 10 mg tablet TAKE 1 TABLET BY MOUTH EVERY DAY active Not Available Not Available No t Available gabapentin 300 mg capsule TAKE 1 CAPSULE BY MOUTH FOUR TIMES A DAY FOR 30 DAYS active Not Available Not Available No t Available cefuroxime axetil 500 mg tablet TAKE 1 TABLET BY MOUTH TWICE A DAY active Not Available Not Available No t Available albuterol sulfate HFA 90 mcg/actuati on aerosol inhaler TAKE 1 PUFF INHALED 4 TIMES A DAY NEEDED FOR SHORTNESS OF BREATH OR WHEEZING active Not Available Not Available No t Available losartan 100 mg tablet TAKE 1 TABLET BY MOUTH EVERY DAY active Not Available Not Available No t Available fluticasone propionate 50 mcg/actuati on nasal spray,suspe nsion USE 1 SPRAY INTO EACH NOSTRIL TWICE A DAY active Not Available Not Available No t Available butalbital- acetaminoph en-caffeine 50 mg-300 mg-40 mg capsule TAKE 1 CAPSULE ORALLY EVERY 4 TO 6 HOURS NEEDED FOR PAIN 09/13 completed Not Available Not Available Not Available Paxlovid 150 mg-100 mg tablets in a dose pack (Renal Dose) TAKE 2 TABLETS BY MOUTH TWICE A DAY 09/13 completed Not Available Not Available Not Available Vitals Date Recorded Body height Body mass index (BMI) Body weight Provider Name and Address Organization Details Last Updated DateTime 09/14/2023 167.64 cm 30.7 kg/m2 40284.55 g Ghazala [email or web address] 09/14/2023 15:18:03 Social History Question Answer Notes LastModified by Organizat ion Details LastModified Time Tobacco Smoking Status Never Smoker Ghazala Coy null, [facility] 09/14/2023 15:19:17 What Is Your Level Of Alcohol Consumption? None Information not available 09/14/2023 Are You Currently Employed? No Information not available 09/14/2023 Have You Had A Flu Shot This Season? No Information not available 09/14/2023 If No, Would You Like A Flu Shot Today? No Information not available 09/14/2023 Have You Had Direct Contact, Or Contact During Intimacy, With Monkeypox Rash, Scabs, Or Body Fluids From A Person With Monkeypox? No Information not available 09/14/2023 What Was The Date Of Your Most Recent Tobacco Screening? 09/14/2023 Information not available 09/14/2023 What Is Your Relationship Status? Information not available 09/14/2023 Do You Use Any Illicit Or Recreational Drugs? No Information not available 09/14/2023 Have You Recently Traveled Abroad? No Information no t available 09/14/2023 Are You Currently In School? No Information not available 09/14/2023 Do You Or Have You Ever Used Any Other Forms Of Tobacco Or Nicotine? No Information not available 09/14/2023 Sex: Unknown Functional Status None recorded. Mental Status None recorded. Family History Nothing Reported. Medical History No medical history recorded. Gynecological History Statement/Question Response Date of LMP Is there any chance of ? No Obstetrics History GPAL:G 0 P 0 0 0 0 Past Encounters Encounter ID Performer Location Encounter Start Date Encounter Closed Date Diagnosis/Indication Diagnosis SNOMED-CT Code Diagnosis ICD10 Code [id number] [place] [address] [place] [address] 09/14/2023 15:13:08 09/14/2023 15:46:37 Pain in left foot 5660992764 94517 M79.672 Peripheral nerve disease 254423452 G64 [id number] [facility]ER [facility] [address] [facility] [address] [place] [address] 09/15/2023 09:26:50 09/15/2023 09:51:34 Left without being seen [id number] 9102 Z53.21 Health Concerns Section Related Observation LastModified by Organization Detai ls LastModified Time None Recorded Concern Status LastModified by Organization Details LastModified Time None Recorded Advance Directives Directive None Recorded Payers Encounter Date Sequence Insurance Name Policy Number Policy Berry Covered Member ID Berry Member ID Guarantor Name 09/14/2023 1 [place] [employer] [employer] Lillian Manjarrez [id number] Lillian Manjarrez 09/15/2023 1 [place] Lillian Manjarrez [id number] Lillian Manjarrez 09/15/2023 2 [facility] (MEDICAID HMO) [id number] Lillian Manjarrez [id number] Lillian Manjarrez Notes Date Note Type Note Provider Name and Address Organization Details Recorded Time 09/14/2023 text/html 83 yo female wit h h/o BL LE neuropathy 2/2 chemotherapy 5 y agoc/o L foot swelling and bruisingminimal pain )b/c of her neuropathy)able to ambulate w/o difficulty some improvement with rest/elevationdid not try any otc medsno known trauma Jean-Claude Martinez, DO [address] [place], [address], [place] - [facility] 09/14/2023 16:05:09 OBGyn Episode No OBEpisode recorded.
--- OUTSIDE RECORDS SUMMARY | 2024-04-02 11:42 | XMS_ITS | Patient Health Record ---
Author Organization [facility] Address [address] [place] [address] Care Team Providers Care Medical Advisor Name Role Phone Anibal Tucker MD Primary Care Provider Jer Lorenzo Unavailable [phone] ALLERGIES No Known Allergies REASON FOR REFERRAL No Information MEDICATIONS Medication SIG (Take, Route, Frequency, Duration) Notes Start Date End Date Status Fluticasone Propionate Active Multivitamin Active amLODIPine Besylate 10 MG 1 tablet Orall y Once a day Active Tylenol 8 Hour Arthritis Pain 650 MG 2 tablets as needed Orally every 8 hrs Active Cholestyramine 4 GM/DOSE MIX 1/2 TO 1 SC OOP IN A GLASS OF WATER OR ORANGE JUICE ORALLY 1 TO 2 TIMES A DAY FOR DIARRHEA for 90 Active Omeprazole Magnesium 20 MG 1 tablet Oral ly Once a day for 30 day(s) Active Losartan Potassium 100 MG Oral for 90 Active Combivent Respimat 20-100 MCG/ACT 1 puff Inhalation Four times a day/prn Active oxyBUTYnin Chloride ER 10 MG TAKE 1 TABL ET BY MOUTH ONCE A DAY Orally Once a day Active Gabapentin 300 MG 1 capsule Orally QID Active Vitamin D3 1000 UNIT 1 tablet Orally Onc e a day Active IMMUNIZATIONS Vaccine Route Administration Date Status Comme nts Influenza Unknown 03/13/2021 Administered Influenza Unknown 12/22/2018 Refused SOCIAL HISTORY Tobacco Use: Social History Observation Description Date Details (start date - stop date) Never Smoker NA - NA Sex Assigned At : Social History Observation Description Sex Assigned At Unknown Tobacco Use/Smoking Question Answer Notes Patient is a nonsmoker Alcohol Screen Question Answer Notes Did you have a drink containing alcohol in the p ast year? No Points 0 Interpretation Negative PROBLEMS Problem Type ICD Code Onset Dates Problem Status W/U Status Risk SNOMED Code Notes Problem Hypertension, unspecified type (I10) Active confirmed 47146376 Problem Irritable bowel syndrome with both constipation and diarrhea (K58.2) Active confirmed 98161842 Problem Gastroesophageal reflux disease, esophagitis presence not specified (K21.9) Active confirmed 819242079 Problem Ulcerative pancolitis without complication (K51.00) Active confirmed 904415081 Problem Encounter for screening for malignant neoplasm of colon (Z12.11) Active confirmed 118719370 Problem 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 244151442 Problem History of colon cancer (Z85.038) Active confirmed 414370321 Problem History of adenomatous polyp of colon (Z86.010) Active confirmed 939054358 Problem NSAID long-term use (Z79.1) Active confirmed 763030744 Problem Diarrhea, unspecified type (R19.7) Active confirmed 57934830 Problem History of colon polyps (Z86.010) Active confirmed History of polyp of colon (900646686) Problem Hx of Billroth II operation (Z98.0) Active confirmed History of gastrointestinal tract bypass (004262690) PLAN OF TREATMENT Pending Test Test Name Order Date CELIAC PANEL #10 05/31/2021 Future Test Test Name Order Date UPPER GI ENDOSCOPY 04/18/2017 COLONOSCOPY 04/18/2017 COLONOSCOPY 12/22/2018 COLONOSCOPY 05/31/2021 Insurance Providers Payer Name Payer Address Payer Phone Subscriber Number Group Number Insured Name Patient Relationship to Insured Coverage Start Date Coverage End Date MED[place]ARE OF [place] [address] [place] [address] [id number] KENYETTA LEO Self - patient is the insured [facility] [address] [place] [address] [id number] KENYETTA LEO Self - patient is the insured MEDICAL (GENERAL) HISTORY Medical History History ICD Code Denies SC,DM,CVA,renal disease Asthma Hypertension GERD-EGD in 07/2017--HH, but no esophagit is nor Saxena's IBS-- Urinary incontinence Colonoscopy 1997--path report describes colitis --no op note available Colon cancer of transverse c olon in 06/2017--surgery with Dr. Powell and chemo with Dr. Gill-finished in 01/2018. CT scan in July 2018 was negative for any sign of recurrent or metastatic disease Negative colonoscopy in 02/2019 Neuropathy in hands and feet from the emo Surgical History Surgery Date(Month/Year) Tonsillectomy and adenoidectomy 1955 Appendectomy 1959 Cholecystectomy 1979 Partial hysterectomy 2003 Bladder suspension surgery 2004 1974,1980 Thyroidectomy 2016 Rectal prolapse surgery-Dr. Aparicio 2003 Cataract-lens implants both eyes 2006 Colon cancer surgery-right c olectomy and KETTY--for transverse colon lesion--Dr. Powell 07/2017 Scalp cyst removal 07/2018
[2024-04-02 13:27] LABS: Free T4 (Free Thyroxine) 1.06 ng/dL (0.71-1.85); Thyroid Stimulating Hormone 2.97 uIU/mL (0.32-4.0)
== END 2024-04-02 11:37 | disposition home or self-care (01) ==
LOC: HO.LAB 11:36
PROVIDERS: PCP Internal Medicine; Visit Provider Nurse Practitioner Family
DX: R53.83 Other fatigue (principal)
CPT/HCPCS: 36415; 84439; 84443; 84481

== ENCOUNTER 2024-05-28 13:36 | Outpatient (REF) | payer MEDICARE, OTHER, SELFPAY ==
--- OUTSIDE RECORDS SUMMARY | 2024-05-28 13:43 | XMS_ITS | Data Portability ---
Author Organization [facility]ENN[facility] Raphael [facility], [address] Address [address] [place] [address] Assessment No assessment recorded. Plan of Treatment Reminders Order Date Submit Date Provider Last Modified By Organization Details Last Modified Time Details Appointments None recorded. Lab None recorded. Referral scroll shear operator referral 2023 024 [email or web address] Not available 4 08:06:04 Procedures None recorded. Surgeries None recorded. Imaging XR, foot, 3 or more view 2023 024 [facility], [address] [place], [address], 4 09:55:01 Medication Orders None recorded. Patient TargetsNo targets recorded. Patient InstructionsNo instructions recorded. 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 [email or web address] [facility] [address] [place], [address], 09/15/2023 09:57:33 Result Notes None recorded. Problems Name Problem SNOMED Code Status Onset Date Resolution Date Notes Provider Name and Address Organization Details Recorded Time Neuropathy 544214262 Active 2023 JENNIFER Benson [facility] 4 15:24:11 Hypertensive disorder 07600648 Active 2023 Ghazala Godanielle daniels, [place] - [facility] 4 15:24:18 Malignant tumor of colon 334690708 Active 2023 Ghazala Goarez Jayyjocelyn daniels, [place] - [facility] 4 15:24:45 Problem Notes None recorded. Procedures Surgical History None recorded. Imaging Results Imaging Date Name Status LastModified by Organiz ation Details LastModified Time 09/15/2023 XR, foot, 3 or more view completed [email or web address] [facility] [address] [facility] [place], [address], 09/15/2023 09:57:33 Procedure Notes None recorded. Medical [...] Updated DateTime 09/14/2023 167.64 cm 30.7 kg/m2 81733.55 g Ghazala Coy [employer] 09/14/2023 15:18:03 Social History Question Answer Notes LastModified by Organizat ion Details LastModified Time Tobacco Smoking Status Never Smoker Ghazala Coy null, [email or web address] 09/14/2023 15:19:17 What Is Your Level Of [...] Diagnosis/Indication Diagnosis SNOMED-CT Code Diagnosis ICD10 Code Diagnosis Note [id number] Jean-Claude Dutchemely [address] [place] [address] 09/14/2023 15:13:08 09/14/2023 15:46:37 Pain in left foot 5835238808 59856 M79.672 h/o neuropathy 2/2 chemo check Xray r/o Fxpt will RTC tomorrow for xray Peripheral nerve disease 903645427 G64 referral to podiatry for further eval and treatment [id number] JENNIFER Matthew [address] [place] [address] 09/15/2023 09:26:50 09/15/2023 09:51:34 Left without being seen 0439221609 9102 Z53.21 Pt was here for imaging only, no other services provided Health Concerns Section Related Observation LastModified by Organization Detai ls LastModified Time None Recorded Concern Status LastModified by Organization Details LastModified Time None Recorded Advance Directives Directive None Recorded Payers Encounter Date Sequence Insurance Name Policy Number Policy Berry Covered Member ID Berry Member ID Guarantor Name 09/14/2023 1 [place] [employer] Lillian Manjarrez [id number] Lillian Manjarrez 09/15/2023 1 [place] [employer] Lillian Manjarrez [id number] Lillian Manjarrez 09/15/2023 2 [facility] (MEDICAID HMO) [id number] Lillian Manjarrez [id number] Lillian Manjarrez Notes Date Note Type Note [...] Martinez, DO [address] [place], [address], [place] - [facility] 09/14/2023 16:05:09 OBGyn Episode No OBEpisode recorded.
--- OUTSIDE RECORDS SUMMARY | 2024-05-28 13:43 | XMS_ITS | Patient Health Record ---
Author Organization [facility] Address [address] [place] [address] Care Team Providers Care Personal Driver Name Role Phone Anibal Tucker MD Primary Care Provider Jer Lorenzo Unavailable [phone] ALLERGIES No Known Allergies REASON FOR REFERRAL [...] Problem Hypertension, unspecified type (I10) Active confirmed 90445110 Problem Irritable bowel syndrome with both constipation and diarrhea (K58.2) Active confirmed 53902346 Problem Gastroesophageal reflux disease, esophagitis presence not specified (K21.9) Active confirmed 799820955 Problem Ulcerative pancolitis without complication (K51.00) Active confirmed 099739987 Problem Encounter for screening for malignant neoplasm of colon (Z12.11) Active confirmed 666005100 Problem 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 321283515 Problem History of colon cancer (Z85.038) Active confirmed 002708358 Problem History of adenomatous polyp of colon (Z86.010) Active confirmed 337865067 Problem NSAID long-term use (Z79.1) Active confirmed 266874026 Problem Diarrhea, unspecified type (R19.7) Active confirmed 40981518 Problem History of colon polyps (Z86.010) Active confirmed History of polyp of colon (760648630) Problem Hx of Billroth II operation (Z98.0) Active confirmed History of gastrointestinal tract bypass (661559878) PLAN OF TREATMENT Pending Test Test Name Order Date CELIAC PANEL #10 05/31/2021 Future Test Test Name Order Date UPPER GI ENDOSCOPY 04/18/2017 COLONOSCOPY 04/18/2017 COLONOSCOPY 12/22/2018 COLONOSCOPY 05/31/2021 Insurance Providers Payer Name Payer Address Payer Phone Subscriber Number Group Number Insured Name Patient Relationship to Insured Coverage Start Date Coverage End Date MED[place]ARE OF [place] [address] [place] [address] [id number] KENYETTA LEO Self - patient is the insured [facility] [address] [place] [address] [id number] KENYETTA LEO Self - patient is the insured MEDICAL (GENERAL) HISTORY Medical History History ICD Code Denies AL,DM,CVA,renal disease Asthma Hypertension GERD-EGD in 07/2017--HH, but [...]
--- OUTSIDE RECORDS SUMMARY | 2024-05-28 13:44 | XMS_ITS ---
Author Organization Jer Gill III, MD Address [address] [place] [address] Care Team Providers Care Pin Feather Machine Operator Name Role Phone Anibal Tucker MD Primary Care Provider UnavailJer Austin Unavailable [phone] Jer Zelaya MD Unavailable Unavailable Allergies Allergen [...] Gabapentin 300 MG TAKE 1 CAPSULE BY [facility] FOUR TIMES A DAY FOR 30 DAYS ORALLY 4 TIMES A DAY 30 DAYS Active Celecoxib 200 MG TAKE 1 CAPSULE BY [place] [facility] DAILY (STOP IBUPROFEN) Oral Active Vitamin D [...] Date Provider Diagnosis Jer Gill III, MD [address] [place] [address] [place] [address] 06/26/2023 Jer Gill Hypertension, unspec ified type [...] Her esophageal reflux is well controlled with zpuq-xeg-pnijkbd medication. No change in her regimen is [...] 300 MG TAKE 1 CAPSULE BY [facility] FOUR TIMES A DAY FOR 30 DAYS ORALLY 4 TIMES A DAY 30 DAYS Celecoxib 200 MG TAKE 1 CAPSULE BY [place] [facility] DAILY (STOP IBUPROFEN) Oral Vitamin D 1000 [...] V Provider Name:Jer Gill, 06/25/2024 10:30:00 AM, [address] [place] [address] [place], [place], [address], Progress Notes * MIKHAIL LEOOB: 2 (83 yo F)Acc No.[id number]:06/26/2023 Progress Notes Patient:?KENYETTA LEO Provider:?Jer Gill MD :1940???Age:83 Y???Sex:Female D ate:06/26/2023 Address:[address] [place] [address] [place] [id number] Pcp:Anibal Tucker MD Subjective: * Chief Complaints: * ???History of colon cancerIr on deficiencyHistory of folic acid deficiencyNeuropathic painObesityGERDHypertension * HPI: ???COVID-19 Screening:? 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 Since her last visit she has had no further symptoms of recurrence or new primary. Her blueberry grower has suggested she have surgery on her [...] Her esophageal reflux is well controlled with jaex-pmf-qrafloz medication. No change in her regimen is [...] * Provider:?Jer Gill MD Date:?06/12 Generated for Jordyi izabella/Harmony/eTransmitting on:?05/28/2024 01:43 PM EST History and Physical Notes * HPI (History of Present Illness) Category Sub-Category Detail Notes COVID-19 Screening Questions Have you had any new onset fever, chills, cough, congestion, sore throat, shortness of breath, muscle aches?: No Have you been exposed to the virus withi n the last 10 days?: No Have you travelled internationally in [facility] last 10 days?: No Have you been [...]
--- OUTSIDE RECORDS SUMMARY | 2024-05-28 13:44 | XMS_ITS | Patient Health Record ---
Author Organization Jer Gill III, MD Address [address] [place] [address] Care Team Providers Care Merchandising Director Name Role Phone Anibal Tucker MD Primary Care Provider UnavailJer Austin Unavailable [phone] Jer Zelaya MD Unavailable Unavailable Allergies Allergen [...] Celecoxib 200 MG TAKE 1 CAPSULE BY [facility] DAILY (STOP IBUPROFEN) Oral Active Vitamin D 1000 UNIT 1 tablet Orally Once a day Active Gabapentin 300 MG TAKE 1 CAPSULE BY [facility] FOUR TIMES A DAY FOR [...] Problem Status W/U Status Risk Notes Problem 48796661 Iron deficiency (E61.1) Active confirmed Her CBC is unremarkable and the iron deficiency has resolved. 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 She is able to live her life normally, however. Problem 201545325 Obesity (BMI 30-39.9) (E66.9) Active confirmed Since her last visit she has lost 4 pounds. Her body mass index is 33 Her nutritional status seems adequate. Her appetite is good and no sign of cancer recurrence was noted. I recommend she continue to lose weight at a moderate pace until the body mass index is normal. Problem 714279310 Gastroesophageal reflux disease, esophagitis presence not specified (K21.9) Active confirmed Her esophageal reflux is well controlled with rdkm-bxk-lygq ter medication. No change in her regimen is necessary today. 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 This should be no problem with her adjuvant chemotherapy. 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 Surveillance will continue. The rectal examination and stool guaiac today was unremarkable. Problem 97786705 Hypertension, unspecified type (I10) Active confirmed Her blood pressure is in the normal range today is 130/80. No change in her regimen as indicated. Problem 22470232 Irritable bowel syndrome, unspecified type (K58.9) Active confirmed His irritable bowel syndrome is quiet at this time and not bothering her much. Problem 372268192 Folic acid deficiency (E53.8) Active confirmed Her primary care physician, Dr. Tucker, has begun on folic acid. I will speak to him about the low iron in the trending low vitamin B12 is well. Problem 790557887 Neuropathic pain (M79.2) Active confirmed Her pain is present but minimal at this time. She is able to conduct all the activities of daily life without impairment. She is continuing current therapy which is controlling the symptomatic lately. Problem 1531204741051242 Arthritis of right knee (M17.11) Active confirmed Vital Signs Heart Rate 80 /min 06/26/2023 Temperature 98.4 degrees Fahrenheit 06/26/2023 Blood pressure diastolic 78 mm Hg 06/26/2023 Height 65 in 06/26/2023 Blood pressure systolic 136 mm Hg 06/26/2023 Weight 197 lbs 06/26/2023 BMI 32.78 kg/m2 06/26/2023 Encounters Encounter Location Date Provider Diagnosis Jer Gill III, MD [address] [place] [address] [place] [address] 06/26/2023 Jer Gill Hypertension, unspec ified type [...] Her esophageal reflux is well controlled with cgyl-cva-vumaylf medication. No change in her regimen is [...] Details Provider Name:Jer Gill, 06/25/2024 10:30:00 AM, [address] [place] [address] [address] [address], [place], [address], Insurance Providers Payer Name Payer Address Payer Phone Subscriber Number Group Number Insured Name Patient Relationship to Insured Coverage Start Date Coverage End Date MEDICARE [place] [address] [place] [phone] [id number] KENYETTA LEO Self - patient is the insured [address] [place] [address] [id number] KENYETTA LEO Self - patient is the [...]
[2024-05-28 15:19] LABS: Free T4 (Free Thyroxine) 0.94 ng/dL (0.71-1.85); Thyroid Stimulating Hormone 2.66 uIU/mL (0.32-4.0)
[2024-05-29 10:18] LABS: Triiodothyronine T3 Free 2.8 pg/mL (2.3-4.2)
[2024-05-31 18:08] LABS: Thyroglobulin Antibodies 9 IU/mL (< or = 1); Thyroid Peroxidase Antibodies 17 IU/mL (<9)
== END 2024-05-28 13:37 | disposition home or self-care (01) ==
LOC: HO.LAB 13:36
PROVIDERS: PCP Internal Medicine; Visit Provider Nurse Practitioner Family
DX: E03.8 Other specified hypothyroidism (principal)
CPT/HCPCS: 36415; 84439; 84443; 84481; 86376; 86800

== ENCOUNTER 2024-07-23 15:09 | Outpatient (AMB) | payer MEDICARE, OTHER, SELFPAY ==
--- OUTSIDE RECORDS SUMMARY | 2024-07-23 15:12 | XMS_ITS ---
Author Organization Jer Gill III, MD Address [address] [place] [address] Care Team Providers Care Rural Route Mail Carrier Name Role Phone Anibal Tucker MD Primary Care Provider UnavailJer Austin Unavailable [phone] Jer Zelaya MD Unavailable Unavailable Allergies Allergen [...] Date Provider Diagnosis Jer Gill III, MD [address] [place] [address] [place] [address] 06/25/2024 Jer Gill Hypertension, unspec ified type [...] Her esophageal reflux is well controlled with vrzl-fgf-[id number] medication. No change in her regimen is [...] 200 MG TAKE 1 CAPSULE BY MO UT DAILY (STOP IBUPROFEN) Oral Combivent Respimat Omeprazole 20 MG 1 capsule Orally Once a day amLODIPine Besylate 10 MG 1 tablet Orally Once a day oxyBUTYnin Chloride ER 10 MG 1 tablet Orally Once a day Fluconazole Gabapentin 300 MG TAKE 1 CAPSULE BY MO [facility] FOUR TIMES A DAY FOR 30 DAYS Next Appt Details Follow Up: 1 Year, Reason: o v Provider Name:Jer Gill, 06/27/2025 10:30:00 AM, [address] [place] [address] , [place] [address], [place], [address], Progress Notes * MIKHAIL LEOOB: 2 (84 yo F)Acc No.[id number]:06/25/2024 Progress Notes Patient:?KENYETTA LEO Provider:?Jer Gill MD :1940???Age:84 Y???Sex:Female D ate:06/25/2024 Address: [address], [place] Pcp:Anibal Tucker MD Subjective: * Chief Complaints: * ???History of resected adeno carcinoma of the transverse colonHypertensionGERDObesityAsthmaArthritis of the right knee * HPI: ???COVID-19 Screening:? She returns periodically for assessment after a successful treatment of transverse colon adenocarcinoma.? She has had no further gastrointestinal symptoms. She is seeing a natural physician in [facility] for her arthritis.? Her esophageal reflux symptoms are well controlled.? She is trying to lose weight and consume a healthy diet.? She has had no recent asthma.? Her peripheral pain and neuropathy are stable.? He seems healthy and well today at the age of 84. ?Questions?Have you had any new onset fever, chills, cough, congestion, sore throat, shortness of breath, muscle aches??No * ROS:?General/Constitutional:?pain?only normal aches and pains.?Chills?denies.?Fatigue?admits.?Fever?denies.?ENT:?Decreased hearing?mild.?Respiratory:?Cough?denies.?Cardiovascular:?Chest pain with exertion?denies.?Dyspnea on exertion?denies.?Shortness of breath?denies.?Gastrointestinal:?Constipation?denies.?Decreased appetite?denies.?Diarrhea?denies.?Heartburn?occasional.?Nausea?denies.?Rectal bleeding?denies.?Vomiting?denies.?Hematology:?bruising?denies.?petechiae?denies.?Swollen glands?none have been noted.?Genitourinary:?Frequent urination?a small amount.?Musculoskeletal:?Muscle aches?denies.?Painful joints?denies.?Sciatica?denies.?Weakness?denies.?Skin:?Itching?denies.?Rash?denies.?Skin lesion(s)?denies.?Neurologic:?Difficulty speaking?denies.?Dizziness?denies.?Headache?denies.?Low back pain?denies.?Psychiatric:?Depressed mood?denies.? * Medical History:? * Surgical History:?tonsillect savanna [...] is a?nonsmoker ?Additional Findings: Tobacco Non-User?Aggressive non-smoker ???She is not working and lives at home with her family. * Medications:?TakingMagnesium Fluconazole amLODIPine Besylate 10 MG Tablet 1 [...] All ergyno[Allergies Verified] Objective: * Vitals:?Ht: 65, Wt:189, BMI: 31.45, BP:143/85, HR:86, Temp:97.9, Wt-k.73. * Examination: ???General Examination: ?GENERAL APPEARANCE:?pleasant, well nourished, well developed, in no acute distress, calm and relaxed, obese, elderly woman.?HEAD:?atraumatic, normocephalic.?EYES:?eomi, perrla, anicteric, conjugate.?EARS:?normal.?NOSE:?septum intact.?ORAL CAVITY:?normal, unremarkable.?NECK/THYROID:?no jugular venous distention, no carotid bruit, thyroid normal.?LYMPH NODES:?no enlarged lymph nodes,spleen normal.?SKIN:?no suspicious lesions, anicteric.?HEART:?no clicks, gallops, murmurs, or rubs, regular rhythm, S1, S2 normal, no s3, or vascular bruits.?LUNGS:?clear to auscultation .?BREASTS:?Not examined.?ABDOMEN:?bowel sounds normal, no ascites, no organomegaly, no mass, centripital obesity, Healed old surgical scar.?RECTAL EXAM:?not examined.?MUSCULOSKELETAL:?extremities unremarkable, no clubbing, cyanosis or edema, Crepitus and pain right knee.?PERIPHERAL PULSES:?normal.?NEUROLOGIC:?alert and oriented, cranial nerves 2-12 grossly intact, deep tendon reflexes 2+ symmetrical, motor strength normal upper and lower extremities, sensory exam intact.?PSYCH:?alert, oriented, thought process logical, goal directed, speech clear, mood/affect full range, judgement and insight good, good eye contact, cooperative with exam, cognitive function intact.? 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 Surveillance will continue. The rectal examination and stool guaiac today was unremarkable.???2.?Hypertension, unspecified type - I10???Notes :Her blood pressure is in the normal range today is 143/85. No change in her regimen as indicated.She was referred back to primary care for management of her slightly elevated blood pressure.???3.?Obesity (BMI 30-39.9) - E66.9???Notes :Since her last visit she has lost 8 pounds.? Her nutritional status seems adequate. Her appetite is good and no sign of cancer recurrence was noted. I recommend she continue to lose weight at a moderate pace until the body mass index is normal.???4.?Gastroesophageal reflux disease, esophagitis presence not specified - K21.9???Notes :Her esophageal reflux is well controlled with doba-kyt-xmwcdau medication. No change in her regimen is necessary today.???5.?Asthma due to environmental allergies - J45.909???Notes :Her asthma is well controlled and she is not wheezing today. 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 She is able to live her life normally, however.??? Plan: * Treatment: 2.?Hypertension, unspecified type? Continue Fluconazole;?Continue amLODIPine Besylate Tablet, 10 MG, 1 tablet, Orally, Once a day;?Continue oxyBUTYnin Chloride ER Tablet Extended Release 24 Hour, 10 MG, 1 tablet, Orally, Once a day;?Continue Combivent Respimat;?Continue Omeprazole Capsule Delayed Release, 20 MG, 1 capsule, Orally, Once a day;?Continue Vitamin D Tablet, 1000 UNIT, 1 tablet, Orally, Once a day;?Continue Losartan Potassium Tablet, 100 MG, 1 tablet, Orally, Once a day;?Continue Celecoxib Capsule, 200 MG, TAKE 1 CAPSULE BY MOUTH DAILY (STOP IBUPROFEN), Oral.?? 3.?Others? Continue Gabapentin Capsule, 300 MG, TAKE 1 CAPSULE BY MOUTH FOUR TIMES A DAY FOR 30 DAYS.?? * Procedure Codes:? * Preventive [...] not done * Follow Up:?1 Year (Reason: o v) * Images: * Sign off status: Completed true * Provider:?Jer Gill MD Date:?06/12 Generated for Jordyi izabella/Harmony/eTransmitting on:?07/23/2024 03:12 PM EDT History and Physical Notes * [...]
--- OUTSIDE RECORDS SUMMARY | 2024-07-23 15:12 | XMS_ITS | Patient Health Record ---
Author Organization [facility] Address [address] [place] [address] Care Team Providers Care Aquaculturist Name Role Phone Anibal Tucker MD Primary Care Provider Jer Lorenzo Unavailable [phone] Allergies No Known Allergies Reason For Referral No Information Medications Medication [...] tablet Orally Onc e a day Active Immunizations Vaccine Route Administration Date Status Comme nts Influenza Unknown 03/13/2021 Administered Influenza Unknown 12/22/2018 Refused Social History Tobacco Use: Social History Observation Description Date Details (start date - stop date) Never Smoker NA - NA Tobacco Use/Smoking Question Answer Notes Patient is a nonsmoker Alcohol Screen Question Answer Notes Did you have a drink containing alcohol in the p ast year? No Points 0 Interpretation Negative Section Notes: Nonsmoker; no alcohol Nonsmoker; no alcohol Nonsmoker; no alcohol Problems Problem Type SNOMED Code ICD Code Onset Dates Problem Status W/U Status Risk Notes Problem 621856486 Encounter for screening for malignant neoplasm of colon (Z12.11) Active confirmed Problem 583790921 History of adenomatous polyp of colon (Z86.010) Active confirmed Problem 333823489 Malignant neopla sm of transverse colon (C18.4) Active confirmed Problem History of polyp of colon (618561860) History of colon polyps (Z86.010) Active confirmed Problem 169655527 Gastroesophageal reflux disease, esophagitis presence not specified (K21.9) Active confirmed Problem 922064898 History of colon cancer (Z85.038) Active confirmed Problem 901751070 NSAID long-term use (Z79.1) Active confirmed Problem 215493694 Ulcerative pancolitis without complication (K51.00) Active confirmed Problem 95594036 Diarrhea, unspecified type (R19.7) Active confirmed Problem 41693624 Irritable bowel syndrome with both constipation and diarrhea (K58.2) Active confirmed Problem 87403520 Hypertension, unspecified type (I10) Active confirmed Problem 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) Active confirmed Encounters Encounter Location Date Provider Diagnosis [facility] [address] [place] [address] 06/25/2024 Jer Zelaya Plan Of Treatment Pending Test Test Name Order Date CELIAC PANEL #10 05/31/2021 Future Test Test Name Order Date UPPER GI ENDOSCOPY 04/18/2017 COLONOSCOPY 04/18/2017 COLONOSCOPY 12/22/2018 COLONOSCOPY 05/31/2021 Insurance Providers Payer Name Payer Address Payer Phone Subscriber Number Group Number Insured Name Patient Relationship to Insured Coverage Start Date Coverage End Date MEDICARE OF [place] [address] [place] [id number] KENYETTA LEO Self - patient is the insured [facility] [address] [place] [place] [phone] [id number] KENYETTA LEO Self - patient is the insured Medical (General) History Medical History History ICD Code Denies OR,DM,CVA,renal disease Asthma Hypertension GERD-EGD in 07/2017--HH, but [...]
--- OUTSIDE RECORDS SUMMARY | 2024-07-23 15:12 | XMS_ITS | Data Portability ---
Author Organization JENNIFER Raphael s, [address] Address [address] [place] [address] Assessment No assessment recorded. Plan of Treatment Reminders Order Date Submit Date Provider Last Modified By Organization Details Last Modified Time Details Appointments None recorded. Lab None recorded. Referral operations dispatcher referral 2023 024 [email or web address] Not available 4 08:06:04 Procedures None recorded. Surgeries None recorded. Imaging XR, foot, 3 or more view 2023 024 [facility], [address] [place], [address], 4 09:55:01 Medication Orders None recorded. Patient TargetsNo targets recorded. Patient InstructionsNo instructions recorded. Reason for Referral Packager Hand Referral for Rosa Maria pheral nerve disease Referring Physician: Jean-Claude [place], Urgent Care, Encounter Date: 09/14/2023 Results Created Date Observation Date Name Description Value Unit Range Abnormal Flag Note LastModifiedBy Organization Detail LastModifiedTime 09/15/1909/15/2023 XR, foot, 3 or more view No observ ation record ed. [email or web address] [facility] [address] [place], [address], 09/15/2023 09:57:33 Result Notes None recorded. Problems Name Problem SNOMED Code Status Onset Date Resolution Date Notes Provider Name and Address Organization Details Recorded Time Neuropathy 625399052 Active 2023 JENNIFER Benson [facility] 4 15:24:11 Hypertensive disorder 59855369 Active 2023 Ghazala Godanielle daniels, [place] - [facility] 4 15:24:18 Malignant tumor of colon 878727984 Active 2023 Ghazala Goarez Jayyjocelyn daniels, [place] - [facility] 4 15:24:45 Problem Notes None recorded. Procedures Surgical History None recorded. Imaging Results Imaging Date Name Status LastModified by Organiz ation Details LastModified Time 09/15/2023 XR, foot, 3 or more view completed [email or web address] [address] [place], [address], 09/15/2023 09:57:33 Procedure Notes None recorded. Medical [...] Updated DateTime 09/14/2023 167.64 cm 30.7 kg/m2 44169.55 g Ghazala Coy Akredo 09/14/2023 15:18:03 Social History Question Answer Notes LastModified by Organizat ion Details LastModified Time Tobacco Smoking Status Never Smoker Ghazala Coy null, [facility] 09/14/2023 15:19:17 What Is Your Level Of [...] SNOMED-CT Code Diagnosis ICD10 Code Diagnosis Note [id number] Jean-Claude Dutchemely [address] [place] [address] 09/14/2023 15:13:08 09/14/2023 15:46:37 Pain in left foot 1992456851 57892 M79.672 h/o neuropathy 2/2 chemo check Xray r/o Fxpt will RTC tomorrow for xray Peripheral nerve disease 485441363 G64 referral to podiatry for further eval and treatment [id number] JENNIFER Matthew [address] [place] [address] 09/15/2023 09:26:50 09/15/2023 09:51:34 Left without being seen [id number] 9102 Z53.21 Pt was here for imaging [...] [place] Lillian Manjarrez [id number] Lillian Manjarrez 09/15/2023 1 [place] Lillian Manjarrez [id number] Lillian Manjarrez 09/15/2023 2 [employer] (MEDICAID HMO) [id number] Lillian Manjarrez [id number] Lillian Manjarrez Notes Date Note Type Note [...] Martinez, DO [address] [place], [address], [place] - [facility] 09/14/2023 16:05:09 OBGyn Episode No OBEpisode recorded.
--- OUTSIDE RECORDS SUMMARY | 2024-07-23 15:13 | XMS_ITS | Patient Health Record ---
Author Organization Jer Gill III, MD Address [address] [place] [address] Care Team Providers Care Gang Boss Name Role Phone Anibal Tucker MD Primary Care Provider Jer Patton Unavailable [phone] Jer Zelaya MD Unavailable Unavailable Allergies Allergen [...] tablet Orall y Once a day Active Combivent Respimat A ctive Thyroid 60 MG TAKE 1 TABLET BY MARIELA TH EVERY DAY Oral Active Omeprazole 20 MG 1 capsule Orally Onc e a day Active amLODIPine Besylate 10 MG 1 tablet Orall y Once a day Active oxyBUTYnin Chloride ER 10 MG 1 tablet Orally Once a day Active Magnesium Active Fluconazole Active Gabapentin 300 MG TAKE 1 CAPSULE BY MO [facility] FOUR TIMES A DAY FOR 30 DAYS Active Celecoxib 200 MG TAKE 1 CAPSULE BY MO [facility] DAILY (STOP IBUPROFEN) Oral Active Social History Tobacco Use: Social History [...] Problem Status W/U Status Risk Notes Problem 66711664 Iron deficiency (E61.1) Active confirmed Her CBC is unremarkable and the iron deficiency has resolved. Problem 9047939 Drug-induced polyneuropathy (G62.0) Active confirmed There was no change in the neuropathy since her last visit. She is able to live her life normally, however. Problem 521296971 Obesity (BMI 30-39.9) (E66.9) Active confirmed Since her last visit she has lost 8 pounds. Her nutritional status seems adequate. Her appetite is good and no sign of cancer recurrence was noted. I recommend she continue to lose weight at a moderate pace until the body mass index is normal. Problem 472854209 Gastroesophageal reflux disease, esophagitis presence not specified (K21.9) Active confirmed Her esophageal reflux is well controlled with fpux-ger-jnpk ter medication. No change in her regimen is necessary today. 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 This should be no problem with her adjuvant chemotherapy. Problem 14891258 Adenocarcinoma o f transverse colon (C18.4) Active confirmed There is no sign of recurrent cancer today. Surveillance will continue. The rectal examination and stool guaiac today was unremarkable. Problem 95203164 Hypertension, unspecified type (I10) Active confirmed Her blood pressure is in the normal range today is 143/85. No change in her regimen as indicated.She was referred back to primary care for management of her slightly elevated blood pressure. Problem 14020593 Irritable bowel syndrome, unspecified type (K58.9) Active confirmed His irritable bowel syndrome is quiet at this time and not bothering her much. Problem 196139744 Folic acid deficiency (E53.8) Active confirmed Her primary care physician, Dr. Tucker, has begun on folic acid. I will speak to him about the low iron in the trending low vitamin B12 is well. Problem 454361907 Neuropathic pain (M79.2) Active confirmed Her pain is present but minimal at this time. She is able to conduct all the activities of daily life without impairment. She is continuing current therapy which is controlling the symptomatic lately. Problem [id number] Arthritis of right knee (M17.11) Active confirmed Vital Signs Heart Rate 86 /min 06/25/2024 Temperature 97.9 degrees Fahrenheit 06/25/2024 Blood pressure diastolic 85 mm Hg 06/25/2024 Height 65 in 06/25/2024 Blood pressure systolic 143 mm Hg 06/25/2024 Weight 189 lbs 06/25/2024 BMI 31.45 kg/m2 06/25/2024 Encounters Encounter Location Date Provider Diagnosis Jer Gill III, MD [address] [place] [address] [address] [place] [address] 06/25/2024 Jer Gill Hypertension, unspec ified type I10 ; Adenocarcinoma of transverse colon C18.4 ; Obesity (BMI 30-39.9) E66.9 ; Gastroesophageal reflux disease, esophagitis presence not specified K21.9 ; Asthma due to environmental allergies J45.909 ; Irritable bowel syndrome, unspecified type K58.9 and Drug-induced polyneuropathy G62.0 Jer Gill III, MD [address] [place] [address] [address] [place] [address] 06/28/2024 Jer Gill Assessments Encounter Date Diagnosis (ICD Code) Assessment Notes Treat ment Notes Treatment Clinical Notes 06/25/2024 Adenocarcinoma of transverse colon (ICD-10 - C18.4) There is no sign of recurrent cancer today. Surveillance will continue. The rectal examination and stool guaiac today was unremarkable. 06/25/2024 Hypertension, unspecified type (ICD-10 - I10) Her blood pressure is in the normal range today is 143/85. No change in her regimen as indicated.She was referred back to primary care for management of her slightly elevated blood pressure. 06/25/2024 Obesity (BMI 30-39.9 ) (ICD-10 - [...] Her esophageal reflux is well controlled with qkyh-uby-xbdwwyv medication. No change in her regimen is [...] her life normally, however. Plan Of Treatment Pending Test Test Name Order Date PROFILE, RANDOM (COMPREHENSIVE METABOLIC ) 03/19/2019 PROFILE, RANDOM (COMPREHENSIVE METABOLIC ) 01/07/2018 PROFILE, RANDOM (COMPREHENSIVE METABOLIC ) 10/21/2017 PROFILE, RANDOM (COMPREHENSIVE METABOLIC ) 11/12/2017 PROFILE, RANDOM (COMPREHENSIVE METABOLIC ) 12/18/2018 PROFILE, RANDOM (COMPREHENSIVE METABOLIC ) 05/05/2018 PROFILE, RANDOM (COMPREHENSIVE METABOLIC ) 12/10/2017 FREE T4 (FT4) 03/19/2019 TSH (THYROID STIMULATING HORMONE) 2018 CEA 01/07/2018 CEA 10/21/2017 CEA 11/12/2017 CEA 12/18/2018 CEA 03/19/2019 CEA 05/05/2018 CBC w DIFF 05/05/2018 CBC w DIFF 01/07/2018 CBC w DIFF 10/21/2017 CBC w DIFF 11/12/2017 CBC w DIFF 12/18/2018 CBC w DIFF 03/19/2019 CBC w DIFF 12/10/2017 SED RATE (ESR) 12/18/2018 MAMMOGRAM DIGITAL BILATERAL SCREEN 06/21 Next Appt Details Provider Name:Jer Gill, 06/27/2025 10:30:00 AM, [address] [place] [address] [address] [facility] [facility], [place], [address], Insurance Providers Payer Name Payer Address Payer Phone Subscriber Number Group Number Insured Name Patient Relationship to Insured Coverage Start Date Coverage End Date MEDICARE NGS [address] [place] [phone] [id number] KENYETTA LEO Self - patient is the insured [employer] [address] [place] [address] [id number] KENYETTA LEO Self - patient is the [...] for parathyroid diseas e 2016 bladder suspension 2003 partial hysterectomy 2003 cholecystectomy 1979 appendectomy 1959 tonsillectomy and adenoidectomy 1955
--- OUTSIDE RECORDS SUMMARY | 2024-07-23 15:13 | XMS_ITS ---
Author Organization Jer Gill III, MD Address [address] [place] [address] Care Team Providers Care Metal Pourer Name Role Phone Anibal Tucker MD Primary Care Provider Unavaila Jer Groves Unavailable [phone] Jer Zelaya MD Unavailable REASON FOR VISIT Regarding Colonoscopy Encounters Encounter Location Date Provider Diagnosis Jer Gill III, MD [address] [place] [address] [place] [address] 06/28/2024 Jer Gill Plan Of Treatment Next Appt Details Provider Name:Jer Gill, 06/27/2025 10:30:00 AM, [address] [place] [address] [address], [place], [address], Progress Notes * MIKHAIL LEOOB: 2 (84 yo F)Acc No.[id number]:06/28/2024 Patient:?KENYETTA LEO :1940???Age:84 Y???Sex:Female Address:[address] [place], [address] * * Date:?
--- OUTSIDE RECORDS SUMMARY | 2024-07-23 15:13 | XMS_ITS ---
Author Organization Jer Gill III, MD Address [address] [place] [address] Care Team Providers Care Stone Rougher Name Role Phone Anibal Tucker MD Primary Care Provider UnavailJer Austin Unavailable [phone] Jer Zelaya MD Unavailable Unavailable Allergies Allergen [...] Gabapentin 300 MG TAKE 1 CAPSULE BY [facility] FOUR TIMES A DAY FOR 30 DAYS ORALLY 4 TIMES A DAY 30 DAYS Active Celecoxib 200 MG TAKE 1 CAPSULE BY MO [facility] DAILY (STOP IBUPROFEN) Oral Active Vitamin [...] Provider Diagnosis Jer Gill III, MD [address] [place] [address] [place] [address] 06/26/2023 Jer Gill Hypertension, unspec ified type [...] Her esophageal reflux is well controlled with itiz-kmg-jefmdrw medication. No change in her regimen is [...] 300 MG TAKE 1 CAPSULE BY MO [facility] FOUR TIMES A DAY FOR 30 DAYS ORALLY 4 TIMES A DAY 30 DAYS Celecoxib 200 MG TAKE 1 CAPSULE BY MO [facility] DAILY (STOP IBUPROFEN) Oral Vitamin D [...] Year, Reason: O V Provider Name:Jer Gill, 06/27/2025 10:30:00 AM, [address] [place] [address] [address], [place], [address], Progress Notes * MIKHAIL LEOOB: 2 (83 yo F)Acc No.[id number]:06/26/2023 Progress Notes Patient:?KENYETTA LEO Provider:?Jer Gill MD :1940???Age:83 Y???Sex:Female D ate:06/26/2023 Address:[address] [place] [address] [address] [id number] Pcp:Anibal Tucker MD Subjective: * Chief Complaints: * ???History of colon cancerIr on deficiencyHistory of folic acid deficiencyNeuropathic painObesityGERDHypertension * HPI: ???COVID-19 Screening:? 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 Since her last visit she has had no further symptoms of recurrence or new primary. Her machine stoppage frequency checker has suggested she have surgery on her [...] Her esophageal reflux is well controlled with xnaf-wwg-soenvcb medication. No change in her regimen is [...] Gill MD Date:?06/12 Generated for Printi ng/Harmony/eTransmitting on:?07/23/2024 03:12 PM EDT History and Physical Notes * HPI (History of Present Illness) Category Sub-Category Detail Notes COVID-19 Screening Questions Have you had any new onset fever, chills, cough, congestion, sore throat, shortness of breath, muscle aches?: No Have you been exposed to the virus withi n the last 10 days?: No Have you travelled internationally in [facility] last 10 days?: No Have you been [...]
--- OUTSIDE RECORDS SUMMARY | 2024-07-23 15:13 | XMS_ITS ---
Author Organization [facility] Address [address] [place] [address] Care Team Providers Care Warehouse Order Picker Name Role Phone Caitlin SALAZAR, Anibal Primary Care Provider Jer Lorenzo [phone] REASON FOR VISIT COLONOSCOPY Encounters Encounter Location Date Provider Diagnosis [facility] [address] [facility] [address] [place] [address] 06/25/2024 Jer Zelaya Plan Of Treatment No Information Progress Notes * KENYETTA LEO EDOB: [birth year] (84 yo F)Acc No.[id number]:06/25/2024 Patient:?KENYETTA LEO :1940???Age:84 Y???Sex:Female Address:[address] [place] [address] [place] [address] * true * Date:? Generated for Jos parekh/Harmony/eTransmitting on:?07/23/2024 03:12 PM EDT
[2024-07-23 15:17] VITALS: BP 136/80; PULSE 86; TEMP 36.4; O2SAT 96; BMI 30.5
--- NOTE | 2024-07-23 15:17 | A.OFFPC_ITS ---
Vital Signs 07/23/24 15:17 Height 5 ft 6 in Weight 189 lb BMI 30.5 BP 136/80 Blood Pressure Location Lt brachial Position Sitting Pulse 86 Pulse Source Pulse Oximeter Temp 97.6 F Temp Source Axillary Pulse Oximetry (%) 96 Oxygen Delivery Method Room Air Intake Visit Reasons: Routine Tree And Shrub Worker Required: No Accompanied by: Self / Same As Patient Allergies formaldehyde [FORMALDEHYDE] Allergy (Unknown, Verified 07/23/24 15:19) HIVES Tobacco use date assessed: 07/23/24 Fall risk assessment: No Falls in past year Last assessed Fall Risk: 07/23/24 Dental Screening Dental Screen Date: 07/23/24 Did you have a dental visit in the last 12 months?: No Did you have a dental problem in the last 6 months where you did not have access to dental care?: No HPI HPI Comments History of Present Illness Details This is an 83-year-old female with a past medical history of hypertension, GERD, IBS, OAB, history of colon cancer arthritis and peripheral neuropathy. last seen pcp CV: On losartan, amlodipine. Denies chest pain, exertional dyspnea GERD: On omeprazole daily. Stable MSK: Bilateral CTS. Seeing arthritis treatment center, Dr Barroso. Previous recommendation for right knee replacement. Sees Dr Joiner. On gabapentin Urology: oxybutynin. not effect. Mammo 2022 Colonoscopy June 2021 ROS see HPI PHYSICAL EXAM: GENERAL: Alert and oriented x 3. NAD EYES: EOMI. Anicteric. HENT: Moist mucous membranes. No scleral icterus. No cervical lymphadenopathy. LUNGS: Clear to auscultation bilaterally. CARDIOVASCULAR: Regular rate and rhythm. No murmur. No JVD. ABDOMEN: Soft, non-tender +bs EXTREMITIES: No edema. Non-tender. SKIN: No rashes or lesions. Warm. NEUROLOGIC: No focal neurological deficits. CN II-XII grossly intact PSYCHIATRIC: Cooperative. Appropriate mood and affect PENDING SALE TO [facility] Medical History Neuropathy Asthma Arthritis Hx of thyroid cancer History of colon cancer Hiatal hernia GERD (gastroesophageal reflux disease) Mild stress incontinence Shortness of breath Chronic bronchitis HTN (hypertension) Surgical History History of esophagogastroduodenoscopy (EGD) History of colonoscopy History of colon surgery History of bladder suspension procedure Hx of section History of bilateral cataract extraction History of appendectomy Hx of cholecystectomy History of tonsillectomy and adenoidectomy History of thyroidectomy Family History Mother No problems noted. Father No problems noted. Social History Housing: House Are you a primary personal care assistant to a significant other at home: No Do you presently have visiting nurse or other home services: No Alcohol intake: never Patient Tobacco Use Status: Never used Tobacco e-Cigarette/Vaping Use: Never Used service: No Current occupational status: retired Cognitive needs: No Hearing needs: No Vision needs: Yes (rx glasses) Questionnaire PHQ-9 Over the last 2 weeks, how often have you been bothered by any of the following problems? 1. Little interest or pleasure in doing things: not at all 2. Feeling down, depressed, or hopeless: not at all 3. Trouble falling or staying asleep, or sleeping too much: not at all 4. Feeling tired or having little energy: not at all 5. Poor appetite or overeating: not at all 6. Feeling bad about yourself - or that you are a failure or have let yourself or your family down: not at all 7. Trouble concentrating on things, such as reading the newspaper or watching television: not at all 8. Moving or speaking so slowly that other people could have noticed. Or the opposite - being so fidgety or restless that you have been moving around a lot more than usual: not at all 9. Thoughts that you would be better off or of hurting yourself in some way: not at all Total score: 0 Depression Screening Interpretation: Negative Depression Screening Done: Yes 75475 - PHQ-9 Billing: Yes Source: Developed by Drs. Jer Abdi, Phyllis Kim, Isael Villalobos and colleagues, with an educational magen from [employer]. Thrive Questionnaire Date Thrive assessed: 07/23/24 I am a: Patient Within the past 12 months, did the food you bought not last and you didn't have the money to get more?: Never true Within the past 12 months, did you worry whether your food would run out before you got money to buy more?: Never true Do you have trouble paying for medicines?: No Do you have trouble getting transportation to medical appointments?: No Do you have trouble paying your heating and electricity bill?: No Do you have trouble taking care of your child, family member or friend?: No Do you have trouble with day-to-day activities such as bathing, preparing meals, shopping, managing finances, etc.?: No Are you currently unemployed and looking for a job?: No Are you interested in more education?: No THRIVE Score: 0 AUDIT C Alcohol Use Questionnaire (AUDIT-C) 1. How often do you have a drink containing alcohol?: Never 3. How often do you have six or more drinks on one occasion?: Never Total Score: 0 VAISHNAVI-7 AMB Questionnaire VAISHNAVI-7 Date VAISHNAVI - 7 assessed: 07/23/24 Feeling nervous, anxious, or on edge: 0 = Not at all Not being able to stop or control worryin = Not at all Worrying too much about different things: 0 = Not at all Trouble relaxin = Not at all Being so restless that it is hard to sit still: 0 = Not at all Becoming easily annoyed or irritable: 0 = Not at all Feeling afraid as if something awful might happen: 0 = Not at all Total VAISHNAVI-7 score (0-4 normal; 5-9 mild; 10-14 moderate; 15-21 severe): 0 Source: Developed by Drs. Jer Abdi, Phyllis Kim, Isael Villalobos and colleagues, with an educational magen from [employer]. Physical exam (Primary Care) Vital Signs: Last Vital Signs Temp 97.6 F 07/23/24 15:17 Pulse 86 07/23/24 15:17 BP 136/80 07/23/24 15:17 Pulse Ox 96 07/23/24 15:17 Oxygen Delivery Method Room Air 07/23/24 15:17 BMI result Body Mass Index 30.5 Tobacco/Smoking Status: Tobacco use Status Tobacco use date assessed 07/23/24 07/23/24 15:22 Patient Tobacco Use Status Never used Tobacco 07/23/24 15:22 e-Cigarette/Vaping Use Never Used 07/23/24 15:22 PHQ-9: PHQ-9 Score PHQ-9: Total score 0 07/23/24 15:22 Depression Screening Interpretation: Negative Thrive Assessment: Date of Thrive Assessment Date Thrive assessed 07/23/24 07/23/24 15:22 Coding Level of Care Code New Pt Level 4 (02550) Complex EM visit Add On G2211 Diagnoses Urinary incontinence, unspecified type R32 Urinary Incontinence type: unspecified incontinence Hx of thyroid cancer Z85.850 Neuropathy G62.9 Hypertension, unspecified type I10 Hypertension type: unspecified Additional Codes PHQ-9 - 74136 - PHQ-9 Billing: Yes ([id number]) Assessment & Plan Assessment & Plan (1) Urinary incontinence: Code(s): R32 - Unspecified urinary incontinence Category: Medical Qualifiers: Urinary Incontinence type: unspecified incontinence Qualified Code(s): R32 - Unspecified urinary incontinence (2) Hx of thyroid cancer: Code(s): Z85.850 - Personal history of malignant neoplasm of thyroid Category: Medical (3) Neuropathy: Comment: hands/feet s/p Chemo Code(s): G62.9 - Polyneuropathy, unspecified Category: Medical (4) HTN (hypertension): Comment: Patient states that she is compliant with her antihypertensive medication regimen daily and has not had her blood pressure checked for at least 4-5 months. Code(s): I10 - Essential (primary) hypertension Category: Medical Qualifiers: Hypertension type: unspecified Qualified Code(s): I10 - Essential (primary) hypertension Plan 84 y/o to establish past medical, social, surgical reviewed Medications reconciled BP controlled left thigh cellulitis-doxycycline sent Orders: Orders Complete Blood Count Auto Diff Today G62.9 - Polyneuropathy, unspecified, I10 - Essential (primary) hypertension, Z85.850 - Personal history of malignant neoplasm of thyroid Comprehensive Met. Panel Today G62.9 - Polyneuropathy, unspecified, I10 - Essential (primary) hypertension, Z85.850 - Personal history of malignant neoplasm of thyroid TSH reflex Free T4 Today G62.9 - Polyneuropathy, unspecified, I10 - Essential (primary) hypertension, Z85.850 - Personal history of malignant neoplasm of thyroid Referrals Endocrinology Referral Z85.850 - Personal history of malignant neoplasm of thyroid Urogynecology Referral R32 - Unspecified urinary incontinence Medications: New doxycycline hyclate 100 mg PO BID 14 tabs 3RF Changed From oxybutynin chloride ER 1 tab PO DAILY To oxybutynin chloride ER 10 mg PO DAILY 90 tabs 3RF From losartan 1 tab PO DAILY To losartan 100 mg PO DAILY 90 tabs 3RF From amlodipine 1 tab PO DAILY To amlodipine 10 mg PO DAILY 90 tabs 3RF
== END 2024-07-23 16:03 | disposition home or self-care (01) ==
LOC: HO.HMCHD 15:10
PROVIDERS: PCP Internal Medicine; Visit Provider Internal Medicine
DX: R32 Unspecified urinary incontinence (principal); Z85.850 Personal history of malignant neoplasm of thyroid; G62.9 Polyneuropathy, unspecified; I10 Essential (primary) hypertension

== ENCOUNTER → 2024-07-23 15:09 | Outpatient (BNVA) | payer MEDICARE, OTHER, SELFPAY | PROVIDERS: PCP Internal Medicine; Visit Provider Internal Medicine | DX: I10 Essential (primary) hypertension (principal); K21.9 Gastro-esophageal reflux disease without esophagitis; R32 Unspecified urinary incontinence; G62.9 Polyneuropathy, unspecified; N32.81 Overactive bladder; Z85.850 Personal history of malignant neoplasm of thyroid | CPT/HCPCS: 96127; 99202 ==

== ENCOUNTER 2024-07-30 09:18 | Outpatient (REF) | payer MEDICARE, OTHER, SELFPAY ==
--- OUTSIDE RECORDS SUMMARY | 2024-07-30 09:46 | XMS_ITS | Patient Health Record ---
Author Organization [facility] Address [address] [place] [address] Care Team Providers Care Acid Leveler Name Role Phone Anibal Tucker MD Primary Care Provider Jer Lorenzo Unavailable [phone] Allergies No Known Allergies Reason For Referral [...] Problem Status W/U Status Risk Notes Problem 331666974 Encounter for screening for malignant neoplasm of colon (Z12.11) Active confirmed Problem 115698024 History of adenomatous polyp of colon (Z86.010) Active confirmed Problem 964952399 Malignant neopla sm of transverse colon (C18.4) Active confirmed Problem History of polyp of colon (situation) (998481112) History of colon polyps (Z86.010) Active confirmed Problem 048775339 Gastroesophageal reflux disease, esophagitis presence not specified (K21.9) Active confirmed Problem 198516755 History of colon cancer (Z85.038) Active confirmed Problem 522054883 NSAID long-term use (Z79.1) Active confirmed Problem 876192183 Ulcerative pancolitis without complication (K51.00) Active confirmed Problem 38586680 Diarrhea, unspecified type (R19.7) Active confirmed Problem 65119339 Irritable bowel syndrome with both constipation and diarrhea (K58.2) Active confirmed Problem 40476815 Hypertension, unspecified type (I10) Active confirmed Problem History of gastrointestinal tract bypass (822631659) Hx of Billroth II operation (Z98.0) Active confirmed Encounters Encounter Location Date Provider Diagnosis [facility] [address] [place] [address] 06/25/2024 Jer Zelaya Plan Of Treatment Pending Test Test Name Order Date CELIAC PANEL #10 05/31/2021 Future Test Test Name Order Date UPPER GI ENDOSCOPY 04/18/2017 COLONOSCOPY 04/18/2017 COLONOSCOPY 12/22/2018 COLONOSCOPY 05/31/2021 Insurance Providers Payer Name Payer Address Payer Phone Subscriber Number Group Number Insured Name Patient Relationship to Insured Coverage Start Date Coverage End Date MEDICARE OF [place] [address] [place] [address] [id number] KENYETTA LEO Self - patient is the insured [facility] [address] [place] [address] [id number] KENYETTA LEO Self - patient is the insured Medical (General) History Medical History History ICD Code Denies IA,DM,CVA,renal disease Asthma Hypertension GERD-EGD in 07/2017--HH, but [...] Neuropathy in hands and feet from the ch emo Surgical History Surgery Date(Month/Year) Tonsillectomy and adenoidectomy 1955 Appendectomy 1959 Cholecystectomy 1979 Partial hysterectomy 2003 Bladder suspension surgery 2004 1974,1980 Thyroidectomy 2016 Rectal prolapse surgery-Dr. Aparicio 2003 Cataract-lens implants both eyes 2006 Colon cancer surgery-right c olectomy and KETTY--for transverse colon lesion--Dr. Powell 07/2017 Scalp cyst removal 07/2018
--- OUTSIDE RECORDS SUMMARY | 2024-07-30 09:46 | XMS_ITS ---
Author Organization Jer Gill III, MD Address [address] [place] [address] [place] [address] Care Team Providers Care Replenishment Merchandising Associate Name Role Phone Anibal Tucker MD Primary Care Provider UnavailJer Austin Unavailable [phone] Jer Zelaya MD Unavailable Unavailable Allergies Allergen [...] Gabapentin 300 MG TAKE 1 CAPSULE BY [facility] FOUR TIMES A DAY FOR 30 DAYS ORALLY 4 TIMES A DAY 30 DAYS Active Celecoxib 200 MG TAKE 1 CAPSULE BY [facility] DAILY (STOP IBUPROFEN) Oral Active Vitamin [...] Date Provider Diagnosis Jer Gill III, MD [address] [place] [address] [place] [address] 06/26/2023 Jer Gill Hypertension, unspec ified type [...] Her esophageal reflux is well controlled with eocq-rxc-eomhncg medication. No change in her regimen is [...] 300 MG TAKE 1 CAPSULE BY [facility] FOUR TIMES A DAY FOR 30 DAYS ORALLY 4 TIMES A DAY 30 DAYS Celecoxib 200 MG TAKE 1 CAPSULE BY [facility] DAILY (STOP IBUPROFEN) Oral Vitamin D [...] V Provider Name:Jer Gill, 06/27/2025 10:30:00 AM, [address] [place] [address] [address], [place], [address], Progress Notes * MIKHAIL LEOOB: 2 (83 yo F)Acc No.[id number]:06/26/2023 Progress Notes Patient:?KENYETTA LEO Provider:?Jer Gill MD :1940???Age:83 Y???Sex:Female D ate:06/26/2023 Address:[address] [place] [address] [address] [id number] Pcp:Anibal Tucker MD Subjective: * Chief Complaints: * ???History of colon cancerIr on deficiencyHistory of folic acid deficiencyNeuropathic painObesityGERDHypertension * HPI: ???COVID-19 Screening:? 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 Since her last visit she has had no further symptoms of recurrence or new primary. Her cold rolling machine setter has suggested she have surgery on her [...] Her esophageal reflux is well controlled with gfae-yty-feupqtq medication. No change in her regimen is [...] Gill MD Date:?06/12 Generated for Printi ng/Harmony/eTransmitting on:?07/30/2024 09:46 AM EDT History and Physical Notes * HPI (History of Present Illness) Category Sub-Category Detail Notes COVID-19 Screening Questions Have you had any new onset fever, chills, cough, congestion, sore throat, shortness of breath, muscle aches?: No Have you been exposed to the virus withi n the last 10 days?: No Have you travelled internationally in [facility] last 10 days?: No Have you [...]
--- OUTSIDE RECORDS SUMMARY | 2024-07-30 09:46 | XMS_ITS | Data Portability ---
Author Organization JENNIFER Raphael s, [address] Address [address] [place] [address] Assessment No assessment recorded. Plan of Treatment Reminders Order Date Submit Date Provider Last Modified By Organization Details Last Modified Time Details Appointments None recorded. Lab None recorded. Referral computer operations technician referral 2023 024 [email or web address] Not available 4 08:06:04 Procedures None recorded. Surgeries None recorded. Imaging XR, foot, 3 or more view 2023 024 [facility], [address] [place], [address], 4 09:55:01 Medication Orders None recorded. Patient TargetsNo targets recorded. Patient InstructionsNo instructions recorded. Reason for Referral Equipment Service Engineer Referral for Rosa Maria pheral nerve disease Referring Physician: Jean-Claude Martinez, Urgent Care, Encounter Date: 09/14/2023 Results Created Date Observation Date Name Description Value Unit Range Abnormal Flag Note LastModifiedBy Organization Detail LastModifiedTime 09/15/1909/15/2023 XR, foot, 3 or more view No observ ation record ed. [email or web address] [facility] [address] [place], [address], 09/15/2023 09:57:33 Result Notes None recorded. Problems Name Problem SNOMED Code Status Onset Date Resolution Date Notes Provider Name and Address Organization Details Recorded Time Neuropathy 117691342 Active 2023 JENNIFER Benson [facility] 4 15:24:11 Hypertensive disorder 92254021 Active 2023 Ghazala Godanielle daniels, [place] - [facility] 4 15:24:18 Malignant tumor of colon 141103365 Active 2023 Ghazala Goarez Jayyjocelyn daniels, PA - [facility] 4 15:24:45 Problem Notes None recorded. Procedures Surgical History None recorded. Imaging Results Imaging Date Name Status LastModified by Organiz ation Details LastModified Time 09/15/2023 XR, foot, 3 or more view completed [email or web address] [facility] [address] [facility] [place], [address], 09/15/2023 09:57:33 Procedure Notes None recorded. Medical [...] Updated DateTime 09/14/2023 167.64 cm 30.7 kg/m2 95521.55 g Ghazala Coy [facility] 09/14/2023 15:18:03 Social History Question Answer Notes LastModified by Organizat ion Details LastModified Time Tobacco Smoking Status Never Smoker Ghazala Coy null, [facility] 09/14/2023 15:19:17 What Is Your Level Of [...] SNOMED-CT Code Diagnosis ICD10 Code Diagnosis Note [id number] Jean-Claude Dutchemely [address] [place] [address] 09/14/2023 15:13:08 09/14/2023 15:46:37 Pain in left foot 3339156218 76034 M79.672 h/o neuropathy 2/2 chemo check Xray r/o Fxpt will RTC tomorrow for xray Peripheral nerve disease 129221575 G64 referral to podiatry for further eval and treatment [id number] JENNIFER Matthew [address] [place] [address] 09/15/2023 09:26:50 09/15/2023 09:51:34 Left without being seen [id number] 9102 Z53.21 Pt was here for imaging [...] [place]: [place] Lillian Manjarrez [id number] Lillian Manjarrez 09/15/2023 1 [place] Lillian Manjarrez [id number] Lillian Manjarrez 09/15/2023 2 [facility] (MEDICAID HMO) [id number] Lillian Manjarrez [id number] Lillian Manjarrez Notes Date Note Type Note [...] Martinez, DO [address] [place], [address], PA - [facility] 09/14/2023 16:05:09 OBGyn Episode No OBEpisode recorded.
--- OUTSIDE RECORDS SUMMARY | 2024-07-30 09:46 | XMS_ITS ---
Author Organization Jer Gill III, MD Address [address] [place] [address] [place] [address] Care Team Providers Care Vice President Of Finance Name Role Phone Anibal Tucker MD Primary Care Provider UnavailJer Austin Unavailable [phone] Jer Zelaya MD Unavailable Unavailable Allergies Allergen [...] Provider Diagnosis Jer Gill III, MD [address] [place] [address] [place] [address] 06/25/2024 Jer Gill Hypertension, unspec ified type [...] Her esophageal reflux is well controlled with xhkc-vij-vnekmkp medication. No change in her regimen is [...] 300 MG TAKE 1 CAPSULE BY [facility] FOUR TIMES A DAY FOR 30 DAYS Next Appt Details Follow Up: 1 Year, Reason: o v Provider Name:Jer Gill, 06/27/2025 10:30:00 AM, [address] [place] [address] , [place] [address], [place], [address], Progress Notes * MIKHAIL LEOOB: 2 (84 yo F)Acc No.[id number]:06/25/2024 Progress Notes Patient:?KENYETTA LEO Provider:?Jer Gill MD :1940???Age:84 Y???Sex:Female D ate:06/25/2024 Address: [address], [id number] Pcp:Anibal Tucker MD Subjective: * Chief Complaints: * ???History of resected adeno carcinoma of the transverse colonHypertensionGERDObesityAsthmaArthritis of the right knee * HPI: ???COVID-19 Screening:? She returns periodically for assessment after a successful treatment of transverse colon adenocarcinoma.? She has had no further gastrointestinal symptoms. She is seeing a natural physician in [facility] for her arthritis.? Her esophageal reflux [...] :Her esophageal reflux is well controlled with qqcm-nmc-dxnmxrg medication. No change in her regimen is [...] Provider:?Jer Gill MD Date:?06/12 Generated for Printi izabella/Harmony/eTransmitting on:?07/30/2024 09:46 AM EDT History and Physical [...]
--- OUTSIDE RECORDS SUMMARY | 2024-07-30 09:47 | XMS_ITS ---
Author Organization Jer Gill III, MD Address [address] [facility] [place] [address] Care Team Providers Care Editor House Organ Name Role Phone Anibal Tucker MD Primary Care Provider Unavaila Jer Groves Unavailable [phone] Jer Zelaya MD Unavailable REASON FOR VISIT Regarding Colonoscopy Encounters Encounter Location Date Provider Diagnosis Jer Gill III, MD [address] [place] [address] [place] [address] 06/28/2024 Jer Gill Plan Of Treatment Next Appt Details Provider Name:Jer Gill, 06/27/2025 10:30:00 AM, [address] [place] [address] [address], [place], [address], Progress Notes * MIKHAIL LEOOB: 2 (84 yo F)Acc No.[id number]:06/28/2024 Patient:?KENYETTA LEO :1940???Age:84 Y???Sex:Female Address:[address] [place], [address] * * Date:?
--- OUTSIDE RECORDS SUMMARY | 2024-07-30 09:47 | XMS_ITS ---
Author Organization [facility] Address [address] [place] [address] Care Team Providers Care Early Childhood Name Role Phone Caitlin SALAZAR, Anibal Primary Care Provider Jer Lorenzo [phone] REASON FOR VISIT COLONOSCOPY Encounters Encounter Location Date Provider Diagnosis [facility] [address] [facility] [address] [place] [address] 06/25/2024 Jer Zelaya Plan Of Treatment No Information Progress Notes * KENYETTA LEO EDOB: [birth year] (84 yo F)Acc No.[id number]:06/25/2024 Patient:?KENYETTA LEO :1940???Age:84 Y???Sex:Female Address:[address] [place] [address] [place] [address] * true * Date:? Generated for Jos parekh/Harmony/eTransmitting on:?07/30/2024 09:46 AM EDT
--- OUTSIDE RECORDS SUMMARY | 2024-07-30 09:47 | XMS_ITS | Patient Health Record ---
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 She is able to live her life normally, however. Problem 584938928 Obesity (BMI 30-39.9) (E66.9) Active confirmed Since her last visit she has lost 8 pounds. Her nutritional status seems adequate. Her appetite is good and no sign of cancer recurrence was noted. I recommend she continue to lose weight at a moderate pace until the body mass index is normal. Problem 190641302 Gastroesophageal reflux disease, esophagitis presence not specified (K21.9) Active confirmed Her esophageal reflux is well controlled with tevo-zge-yriz ter medication. No change in her regimen is necessary today. 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 This should be no problem with her adjuvant chemotherapy. 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 Surveillance will continue. The rectal examination and stool guaiac today was unremarkable. Problem 99564500 Hypertension, unspecified type (I10) Active confirmed Her blood pressure is in the normal range today is 143/85. No change in her regimen as indicated.She was referred back to primary care for management of her slightly elevated blood pressure. Problem 40030701 Irritable bowel syndrome, unspecified type (K58.9) Active confirmed His irritable bowel syndrome is quiet at this time and not bothering her much. Problem 588575442 Folic acid deficiency (E53.8) Active confirmed Her primary care physician, Dr. Tucker, has begun on folic acid. I will speak to him about the low iron in the trending low vitamin B12 is well. Problem 539455562 Neuropathic pain (M79.2) Active confirmed Her pain is present but minimal at this time. She is able to conduct all the activities of daily life without impairment. She is continuing current therapy which is controlling the symptomatic lately. Problem 4700949090552310 Arthritis of right knee (M17.11) Active confirmed Vital Signs Heart Rate 86 /min 06/25/2024 Temperature 97.9 degrees Fahrenheit 06/25/2024 Blood pressure diastolic 85 mm Hg 06/25/2024 Height 65 in 06/25/2024 Blood pressure systolic 143 mm Hg 06/25/2024 Weight 189 lbs 06/25/2024 BMI 31.45 kg/m2 06/25/2024 Encounters Encounter Location Date Provider Diagnosis Jer Gill III, MD [address] [place] [address] [address] [place] [address] 06/25/2024 Jer Gill Hypertension, unspec ified type I10 ; Adenocarcinoma of transverse colon C18.4 ; Obesity (BMI 30-39.9) E66.9 ; Gastroesophageal reflux disease, esophagitis presence not specified K21.9 ; Asthma due to environmental allergies J45.909 ; Irritable bowel syndrome, unspecified type K58.9 and Drug-induced polyneuropathy G62.0 Jer Gill III, MD [address] [place] [address] [address] [place] [address] 06/28/2024 Jer Gill Assessments Encounter Date Diagnosis [...] Her esophageal reflux is well controlled with epup-nbx-omcsiwk medication. No change in her regimen is [...] Details Provider Name:Jer Gill, 06/27/2025 10:30:00 AM, [address] [place] [address] [facility] [address], [place], [address], Insurance Providers Payer Name Payer Address Payer Phone Subscriber Number Group Number Insured Name Patient Relationship to Insured Coverage Start Date Coverage End Date MEDICARE NGS [address] [place] [phone] [id number] KENYETTA LEO Self - patient is the insured [employer] [address] [place] [address] [id number] KENYETTA LEO Self - patient is the [...]
== END 2024-07-30 09:19 | disposition home or self-care (01) ==
LOC: HO.MAMMO 09:18
PROVIDERS: PCP Internal Medicine; Referring Provider Internal Medicine; Visit Provider Internal Medicine
DX: Z12.31 Encounter for screening mammogram for malignant neoplasm of breast (principal)
CPT/HCPCS: 77063; 77067

== ENCOUNTER → 2024-07-30 09:30 | Outpatient (BNV) | payer MEDICARE, OTHER, SELFPAY | PROVIDERS: PCP Internal Medicine; Referring Provider Internal Medicine; Visit Provider Internal Medicine | DX: Z12.31 Encounter for screening mammogram for malignant neoplasm of breast (principal) | CPT/HCPCS: 77063; 77067 ==

== ENCOUNTER 2024-09-30 13:12 | Outpatient (REF) | payer MEDICARE, OTHER, SELFPAY ==
--- OUTSIDE RECORDS SUMMARY | 2024-09-30 14:22 | XMS_ITS | Data Portability ---
Author Organization JENNIFER Raphael s, [address] Address [address] [place] [address] Assessment No assessment recorded. Plan of Treatment Reminders Order Date Submit Date Provider Last Modified By Organization Details Last Modified Time Details Appointments None recorded. Lab None recorded. 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 Surgeries None recorded. Imaging XR, foot, 3 or more view 2023 024 [facility], [address] [place], [address], 4 09:55:01 Medication Orders None recorded. Patient TargetsNo targets recorded. Patient InstructionsNo instructions recorded. Reason for Referral Home Care Attendant Referral for Rosa Maria pheral nerve disease Referring Physician: Jean-Claude Martinez, Urgent Care, Encounter Date: 09/14/2023 Results Created Date Observation Date Name Description Value Unit Range Abnormal Flag Note LastModifiedBy Organization Detail LastModifiedTime 09/15/1909/15/2023 XR, foot, 3 or more view No observ ation record ed. [email or web address] [facility] [address] [place], [address], 09/15/2023 09:57:33 Result Notes None recorded. Problems Name Problem SNOMED Code Status Onset Date Resolution Date Notes Provider Name and Address Organization Details Recorded Time Neuropathy 962745906 Active 2023 JENNIFER Benson [facility] 4 15:24:11 Hypertensive disorder 20528130 Active 2023 JENNIFER Benson [facility] 4 15:24:18 Malignant tumor of colon 374928213 Active 2023 JENNIFER Benson [facility] 4 15:24:45 Problem Notes None recorded. Medical Equipment None Reported. [...] mg-100 mg tablets in a dose pack (Moderate Renal Dose) TAKE 2 TABLETS BY MOUTH TWICE A DAY 09/13 completed Not Available Not Available Not Available Vitals Date Recorded Body height Body mass index (BMI) Body weight Provider Name and Address Organization Details Last Updated DateTime 09/14/2023 167.64 cm 30.7 kg/m2 42537.55 g Ghazala Coy PA [facility] 09/14/2023 15:18:03 Social History Question Answer Notes LastModified by Financial Transaction [employer] Details LastModified Time Tobacco Smoking Status Never Smoker Ghazala Coy null, [place] - [facility] 09/14/2023 15:19:17 Have You Had A Flu Shot This [...] Your Relationship Status? Information not available 09/14/2023 Have You Recently Traveled Abroad? No Information no t available 09/14/2023 Are You Currently In School? No Information not available 09/14/2023 Sex: Unknown Functional Status Question Answer Note LastModified by Financial Transaction Services Details LastModified Time Do you use any illicit or recreational drugs? No Information not available 09/14/2023 Do you or have you ever used any other forms of tobacco or nicotine? No Information not available 09/14/2023 What is your level of alcohol consumption? None Information not available 09/14/2023 Are you currently employed? No Information not available 09/14/2023 Mental Status None recorded. Family History Nothing Reported. Medical History No medical history recorded. Gynecological History Statement/Question Response Date of LMP Is there any chance of ? No Obstetrics History GPAL:G 0 P 0 0 0 0 Past Encounters Encounter ID Performer Location Encounter Start Date Encounter Closed Date Diagnosis/Indication Diagnosis SNOMED-CT Code Diagnosis ICD10 Code Diagnosis Note [id number] [place]-Claude [place] [address] [facility] [address] 09/14/2023 15:13:08 09/14/2023 15:46:37 Pain in left foot 9088723800 82471 M79.672 h/o neuropathy 2/2 chemo check Xray r/o Fxpt will RTC tomorrow for xray Peripheral nerve disease 404038234 G64 referral to podiatry for further eval and treatment [id number] [facility]ENN[facility]ASC[address]IA [address] [facility] [address] [facility] [place] [address] 09/15/2023 09:26:50 09/15/2023 09:51:34 Left without being seen [id number] 9102 Z53.21 Pt was here for imaging only, no other services provided Health Concerns Section Related Observation LastModified by Organization Detai ls LastModified Time None Recorded Concern Status LastModified by Organization Details LastModified Time None Recorded Advance Directives Directive None Recorded Payers Insurance Date Sequence Insurance Name Policy Number Policy Berry Covered Member ID Berry Member ID Guarantor Name 10/03/2023 2 UNSPECIFIED REMIT PAYOR Lillian Manjarrez 09/14/2023 1 MEDICARE B-[place]: [facility] Lillian Manjarrez [id number] Lillian Manjarrez 10/15/2023 2 [facility] (MEDICAID HMO) [id number] Lillian Manjarrez [id number] Lillian Manjarrez Notes Date Note Type Note Provider Name and Address Organization Details Recorded Time 09/14/2023 text/html 83 yo female wit h h/o BL LE neuropathy 2/2 chemotherapy 5 y agoc/o L foot swelling and bruisingminimal pain )b/c of her neuropathy)able to ambulate w/o difficulty some improvement with rest/elevationdid not try any otc medsno known trauma Jean-Claude Martinez, DO [address] [place], [address], [place] - [facility] 09/14/2023 16:05:09 OBGyn Episode No OBEpisode recorded.
[2024-09-30 14:34] LABS: Free T4 (Free Thyroxine) 1.06 ng/dL (0.71-1.85); Thyroid Stimulating Hormone 0.65 uIU/mL (0.32-4.0)
[2024-10-01 11:49] LABS: Triiodothyronine T3 Free 3.6 pg/mL (2.3-4.2)
== END 2024-09-30 13:13 | disposition home or self-care (01) ==
LOC: HO.LAB 13:12
PROVIDERS: PCP Internal Medicine; Visit Provider Nurse Practitioner Family
DX: E03.8 Other specified hypothyroidism (principal)
CPT/HCPCS: 36415; 84439; 84443; 84481

== ENCOUNTER 2025-02-11 15:21 | Outpatient (AMB) | payer MEDICARE, OTHER, SELFPAY ==
--- OUTSIDE RECORDS SUMMARY | 2024-06-25 06:30 | XMS_ITS ---
Author Organization Jer Gill III, MD Address [address] [place] [address] [place] [address] Care Team Providers Care Mason Liner Name Role Phone Anibal Tucker MD Primary [...] 06/25/2024 Encounters Encounter Location Date Provider Diagnosis Jre Gill III, MD [address] [place] [address] [place] [address] 06/25/2024 Jer Gill Hypertension, unspec ified type [...] Her esophageal reflux is well controlled with ynds-fcu-tfhgwtl medication. No change in her regimen is [...] Celecoxib 200 MG TAKE 1 CAPSULE BY [facility] DAILY (STOP IBUPROFEN) Oral Combivent Respimat Omeprazole 20 MG 1 capsule Orally Once a day amLODIPine Besylate 10 MG 1 tablet Orally Once a day oxyBUTYnin Chloride ER 10 MG 1 tablet Orally Once a day Fluconazole Gabapentin 300 MG TAKE 1 CAPSULE BY [facility] FOUR TIMES A DAY FOR 30 DAYS Next Appt Details Follow Up: 1 Year, Reason: o v Provider Name:Jer Gill , 06/27/2025 10:30:00 AM, [address] [place] [address] DR [facility] [place], [place], [address], Progress Notes * MIKHAIL ELOOB: 2 (84 yo F)Acc No.[id number]:06/25/2024 Progress Notes Patient: KENYETTA ARAGON Provider: Prateek Gill MD :1940 A ge:84 Y S ex:Female Date:06/25/2024 Address: [address], [place] , [id number] Pcp:Anibal Tucker MD Subjective: * Chief Complaints: * H istory of resected adenocarcinoma of the transverse colonHypertensionGERDObesityAsthmaArthritis of the right knee * HPI: C OVID-19 Screening: She returns periodically for assessment after a successful treatment of transverse colon adenocarcinoma. She has had no further gastrointestinal symptoms. She is seeing a natural physician in [facility] for her arthritis. Her esophageal reflux symptoms [...] :Her esophageal reflux is well controlled with cwuu-dwk-fesicka medication. No change in her regimen is [...] 06/25/2024 Generated for Jos parekh/Harmony/Bhavyaitting on: 1 03:28 PM EDT History and Physical Notes * HPI [...]
--- OUTSIDE RECORDS SUMMARY | 2024-06-28 07:40 | XMS_ITS ---
Author Organization Jer Gill III, MD Address [address] [facility] [place] [address] Care Team Providers Care Creative Writer Name Role Phone Anibal Tucker MD Primary Care Provider Dr. Jer Patton III Unavailable [phone] Jer Zelaya MD REASON FOR VISIT Regarding Colonoscopy Encounters Encounter Location Date Provider Diagnosis Jer Gill III, MD [address] [place] [address] [place] [address] 06/28/2024 Jer Gill Plan Of Treatment Next Appt Details Provider Name:Jer Gill , 06/27/2025 10:30:00 AM, [address] [place] [address] [place], [address], Progress Notes * MIKHAIL LEOOB: 2 (84 yo F)Acc No.[id number]:06/28/2024 Patient: KENYETTA ARAGON :1940 A ge:84 Y S ex:Female Address:[place], [address] * true * Date: Generated for Jordyi izabella/Harmony/eTransmitting on: 03:28 PM EDT
--- NOTE | 2025-02-11 14:36 | MHC.PC.OV ---
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: No Accompanied by: Self / Same As Patient Allergies formaldehyde (FORMALDEHYDE) Allergy (Unknown, Verified 02/11/25 14:37) HIVES Medication List - Last Reconciled 02/11/25 by Kaci Rothman LPN acetaminophen ER 1,300 mg PO Q8H albuterol sulfate 90 mcg/actuation (Ventolin HFA) 1 inh inhalation QID PRN amlodipine 10 mg PO DAILY celecoxib 200 mg PO DAILY cholecalciferol (vitamin D3) (Vitamin D3) 25 mcg PO DAILY gabapentin 2 caps PO BID losartan 100 mg PO DAILY mecobalamin (vitamin B12) mcg PO omeprazole 20 mg PO DAILY vibegron (Gemtesa) 75 mg PO DAILY Tobacco use date assessed: 07/23/24 Dental Screening Dental Screen Date: 07/23/24 HPI HPI Comments History of Present Illness Details This is an 83-year-old female with a past medical history of hypertension, GERD, IBS, OAB, history of colon cancer arthritis and peripheral neuropathy. last seen pcp Feb. CV: On losartan, amlodipine. Denies chest pain, exertional dyspnea GERD: On omeprazole daily. Stable MSK: Bilateral CTS. Seeing [facility] treatment center, Dr Barroso. Previous recommendation for right knee replacement. Sees Dr Joiner. On gabapentin Urology: Following with urology. On Gemtesa Peripheral neuropathy- gabapentin Hx colon cancer - 2018 with transverse colectomy, dr lawton- sees annually. due for appt- needs to make an appt for colonoscopy History of thyroid cancer-s/p partial thyroidectomy-has remaining 1 thyroid lobe Concerns: Nocturnal leg cramping- taking gabapentin but still happens. Ongoing for months. Chronic low back pain-efforts after sitting and then standing for several minutes. She does ambulate with a cane. Denies any radiation of the pain. No bowel/bladder dysfunction, weakness, paresthesias Chronic diarrhea-intermittently occurring for years. There is associated abdominal cramping. Reports over the last 2 weeks symptoms have been worsening. Unsure if she had any bad foods reports that no one else has similar symptoms. No recent antibiotic use. Reports copious watery diarrhea throughout the day with some fecal incontinence. No blood in the stool. No fevers or chills. She has eliminated foods such as dairy in the past without elimination of symptoms Mammo 2022 Colonoscopy June 2021 ROS: See HPI EXAM: Constitutional - Awake and Alert, No apparent distress Eyes - PERRL Cardiovascular - S1S2, RRR, No edema Respiratory - Normal lung expansion, Normal respiratory effort, No respiratory distress, CTA bilaterally Extremities - no calf tenderness bilaterally, no swelling MSK-no midline or paraspinal tenderness to palpation. 5/5 strength in the bilateral lower extremities. Skin - Warm/Dry Neurological - Alert & oriented x3 Psychological - Appropriate affect PFSH Medical History (Updated 02/11/25 @ 16:06 by JENNIFER Sanchez) Neuropathy Asthma Arthritis Hx of thyroid cancer History of colon cancer Hiatal hernia GERD (gastroesophageal reflux disease) Mild stress incontinence Shortness of breath Chronic bronchitis HTN (hypertension) Surgical History (Updated 02/11/25 @ 15:44 by JENNIFER Sanchez) History of esophagogastroduodenoscopy (EGD) History of colonoscopy (~07/12/19) History of colon surgery History of bladder suspension procedure Hx of section History of bilateral cataract extraction History of appendectomy Hx of cholecystectomy History of tonsillectomy and adenoidectomy History of thyroidectomy Family History Mother No problems noted. Father No problems noted. Social History Housing: House Are you a primary director of primary care to a significant other at home: No Do you presently have visiting nurse or other home services: No Alcohol intake: never Patient Tobacco Use Status: Never used Tobacco e-Cigarette/Vaping Use: Never Used service: No Current occupational status: retired Cognitive needs: No Hearing needs: No Vision needs: Yes (rx glasses) Questionnaire Thrive Questionnaire Date Thrive assessed: 07/23/24 VAISHNAVI-7 AMB Questionnaire VAISHNAVI-7 Date VAISHNAVI - 7 assessed: 07/23/24 Source: Developed by Drs. Jer Abdi, Phyllis BIsael Vinson and colleagues, with an educational magen from [employer]. Physical exam (Primary Care) Vital Signs: Last Vital Signs Temp 98.0 F 02/11/25 15:30 Pulse 70 02/11/25 15:30 Resp 16 02/11/25 15:30 BP 140/70 H 02/11/25 15:30 Pulse Ox 97 02/11/25 15:30 Oxygen Delivery Method Room Air 02/11/25 15:30 Oxygen Flow Rate 0 02/11/25 15:30 BMI result Body Mass Index 32.3 Tobacco/Smoking Status: Tobacco use Status Tobacco use date assessed 07/23/24 02/11/25 14:37 Patient Tobacco Use Status Never used Tobacco 02/11/25 14:37 e-Cigarette/Vaping Use Never Used 02/11/25 14:37 Thrive Assessment: Date of Thrive Assessment Date Thrive assessed 07/23/24 02/11/25 14:37 Coding Level of Care Code Est Pt Level 4 (80700) Complex EM visit Add On G2211 Diagnoses Hypertension, unspecified type I10 Hypertension type: unspecified H/O partial thyroidectomy E89.0 Low back pain M54.50 Leg cramping R25.2 Diarrhea R19.7 Assessment & Plan Assessment & Plan (1) HTN (hypertension): Comment: Patient states that she is compliant with her antihypertensive medication regimen daily and has not had her blood pressure checked for at least 4-5 months. Code(s): I10 - Essential (primary) hypertension Category: Medical Qualifiers: Hypertension type: unspecified Qualified Code(s): I10 - Essential (primary) hypertension Plan: Reasonably controlled. Continue losartan 100 mg and amlodipine 10 mg daily (2) H/O partial thyroidectomy: Code(s): E89.0 - Postprocedural hypothyroidism Category: Medical Plan: With history of thyroid cancer. Refer to endocrinology. TSH with reflex free T4 ordered. Not currently on levothyroxine (3) Low back pain: Code(s): M54.50 - Low back pain, unspecified Category: Medical Plan: She is referred to physical therapy. Can continue using Celebrex and at Tylenol. Continue gabapentin. Recommend topical analgesics such as lidocaine patches. Possibly postural (4) Leg cramping: Code(s): R25.2 - Cramp and spasm Category: Medical Plan: Check electrolyte levels given coinciding copious diarrhea. Also possibly related to restless legs. Recommend drinking at least 64 Oz of water daily, preferably more given ongoing diarrhea. Consider additional therapies as indicated pending results of studies (5) Diarrhea: Code(s): R19.7 - Diarrhea, unspecified Category: Medical Plan: Check GI panel for infectious etiology. Recommend increase fluid intake. Can add fiber supplement. Also recommend pre and probiotic. Use Imodium as needed. Trial low FODMAP diet. Advised to reach out to gastroenterology for follow-up Plan Follow-up in the office in 6 months. Labs to be completed today. Orders: Orders TSH reflex Free T4 Today E89.0 - Postprocedural hypothyroidism, G62.9 - Polyneuropathy, unspecified, I10 - Essential (primary) hypertension, Z85.850 - Personal history of malignant neoplasm of thyroid PT Evaluation and Treatment Today M54.50 - Low back pain, unspecified, M54.59 - Other low back pain Lipid Panel Today E89.0 - Postprocedural hypothyroidism, G62.9 - Polyneuropathy, unspecified, I10 - Essential (primary) hypertension, Z85.850 - Personal history of malignant neoplasm of thyroid Liver Panel Today E89.0 - Postprocedural hypothyroidism, G62.9 - Polyneuropathy, unspecified, I10 - Essential (primary) hypertension, Z85.850 - Personal history of malignant neoplasm of thyroid GI Panel Today R19.7 - Diarrhea, unspecified Magnesium Today R25.2 - Cramp and spasm Referrals Endocrinology Referral E89.0 - Postprocedural hypothyroidism, Z85.850 - Personal history of malignant neoplasm of thyroid Patient Instructions: Try fiber gummies and pre/probiotic Low FODMAP diet
--- OUTSIDE RECORDS SUMMARY | 2025-02-11 15:28 | XMS_ITS | Data Portability ---
Author Organization JENNIFER Raphael s, [address] Address [address] [place] [address] Assessment No assessment recorded. Plan of Treatment Reminders Order Date Submit Date Provider Last Modified By Organization Details Last Modified Time Details Appointments None recorded. Lab None recorded. Referral household appliances service technician referral 2023 024 [email or web address] Not available 4 08:06:04 Procedures None recorded. Surgeries None recorded. Imaging XR, foot, 3 or more view 2023 024 [facility], [address] [place], [address], 4 09:55:01 Medication Orders None recorded. Patient TargetsNo targets recorded. Patient InstructionsNo instructions recorded. 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 [email or web address] [facility] [address] [place], [address], 09/15/2023 09:57:33 Result Notes None recorded. Problems Name Problem SNOMED Code Status Onset Date Resolution Date Notes Provider Name and Address Organization Details Recorded Time Neuropathy 830118037 Active 2023 JENNIFER Benson [facility] 4 15:24:11 Hypertensive disorder 88896217 Active 2023 Ghazala daniels PA - [facility] 4 15:24:18 Malignant neoplasm of colon 446677243 Active 2023 Ghazala daniels, JENNIFER - [facility] 4 15:24:45 Problem Notes [...] Updated DateTime 09/14/2023 167.64 cm 30.7 kg/m2 88333.55 g Ghazala Godanielle Coy PA [facility] 09/14/2023 15:18:03 Social History Question Answer Notes LastModified by Cubikal Details LastModified Time Tobacco Smoking Status Never Smoker Ghazala Goarez Jayyjocelyn null, PA - [facility] 09/14/2023 15:19:17 [...] Functional Status Question Answer Note LastModified by Cubik[employer] Details LastModified Time Do you use any [...] Diagnosis SNOMED-CT Code Diagnosis ICD10 Code Diagnosis IMO Codes Diagnosis Note [id number] Jean-Claude Martinez DO [address] [facility] [place] [address] 09/14/2023 15:13:08 09/14/2023 15:46:37 Pain in left foot 4554588096 45681 M79.672 h/o neuropathy 2/2 chemo check Xray r/o Fxpt will RTC tomorrow for xray Peripheral nerve disease 761049326 G64 referral to podiatry for further eval and treatment [id number] JENNIFER [address] [place] [place] [address] 09/15/2023 09:26:50 09/15/2023 09:51:34 Left without being seen [id number] 9102 Z53.21 Pt was here for imaging [...] REMIT PAYOR Lillian Manjarrez 09/14/2023 1 [place]: [place] [employer] Lillian Manjarrez [id number] Lillian Manjarrez 10/15/2023 2 [facility] (MEDICAID HMO) [id number] Lillian Manjarrez [id number] Lillian Manjarrez Notes Date Note Type Note Provider Name and Address Organization Details Recorded Time 09/14/2023 text/html ROS as noted in the HPI 83 yo female with h/o BL LE neuropathy 2/2 chemotherapy 5 y agoc/o L foot swelling and bruisingminimal pain )b/c of her neuropathy)able to ambulate w/o difficulty some improvement with rest/elevationdid not try any otc medsno known trauma Jean-Claude Tabit, DO [address] [place] [address], [place], [address], [place] - [facility] 09/14/2023 16:05:09 OBGyn Episode No OBEpisode recorded.
--- OUTSIDE RECORDS SUMMARY | 2025-02-11 15:28 | XMS_ITS | Patient Health Record ---
Author Organization 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 Name Role Phone Caitlin (RETIRED) Anibal SALAZAR Primary Care Provide r Henrik Jer Zelaya Unavailable [phone] Allergies No Known Allergies Reason For Referral [...] 1 TO 2 TIMES A DAY FOR DIARRHEA; Duration: 90 Active Omeprazole Magnesium 20 MG 1 tablet Oral ly Once a day; Duration: 30 day(s) Active Losartan Potassium 100 MG Oral; Duration: 90 Active Combivent Respimat 20-100 MCG/ACT 1 [...] Problem Status W/U Status Risk Notes Problem Screening for malignant neoplasm of colon (926802229) Encounter for screening for malignant neoplasm of colon (Z12.11) Active confirmed Problem History of adenomatous polyp of colon (497566975) History of adenomatous polyp of colon (Z86.010) Active confirmed Problem Malignant neoplasm of transverse colon (049259540) 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 Problem History of polyp of colon (situation) (538490997) History of colon polyps (Z86.010) Active confirmed Problem Gastroesophageal reflux disease (246655640) Gastroesophageal reflux disease, esophagitis presence not specified (K21.9) Active confirmed Problem History of malignant neoplasm of colon (932189377) History of colon cancer (Z85.038) Active confirmed Problem detention current use of non-steroidal anti-inflammatory drug (145113800154228) NSAID long-term use (Z79.1) Active confirmed Problem Chronic ulcerative pancolitis (808079306) Ulcerative pancolitis without complication (K51.00) Active confirmed Problem Diarrhea (08760420) Diarrhea, unspecified type (R19.7) Active confirmed Problem Irritable bowel syndrome (38731733) Irritable bowel syndrome with both constipation and diarrhea (K58.2) Active confirmed Problem Essential hypertension (27262516) Hypertension, unspecified type (I10) Active confirmed Problem 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 Encounters Encounter Location Date Provider Diagnosis [facility] [address] [place] [address] 06/25/2024 Jer Zelaya Plan Of Treatment Pending Test Test Name Order Date CELIAC PANEL #10 05/31/2021 Future Test Test Name Order Date UPPER GI ENDOSCOPY 04/18/2017 COLONOSCOPY 04/18/2017 COLONOSCOPY 12/22/2018 COLONOSCOPY 05/31/2021 Insurance Providers Payer Name Payer Address Payer Phone Subscriber Number Group Number Insured Name Patient Relationship to Insured Coverage Start Date Coverage End Date MEDICARE OF [place] [address] [place] [address] [id number] KENYETTA LEO Self - patient is the [facility] [address] [place] [address] [place] [phone] [id number] KENYETTA LEO Self - patient is the insured Medical (General) History Medical History History ICD Code Denies CT,DM,CVA,renal disease Asthma Hypertension GERD-EGD in 07/2017--HH, but [...]
--- OUTSIDE RECORDS SUMMARY | 2025-02-11 15:29 | XMS_ITS | Patient Health Record ---
Author Organization Jer Gill III, MD Address [address] [place] [address] [place] [address] Care Team Providers Care Flour Blender Name Role Phone Anibal Tucker MD Primary Care Provider Dr. Jer Patton III Unavailable [phone] Jer Zelaya MD Unavailable Unavailable Allergies Allergen [...] BY MARIELA TH EVERY DAY Oral Active Gabapentin 300 MG TAKE 1 CAPSULE BY MO UTH FOUR TIMES A DAY FOR 30 DAYS for 30 Active Omeprazole 20 MG 1 capsule Orally Onc e a day Active amLODIPine Besylate 10 MG 1 tablet Orall y Once a day Active oxyBUTYnin Chloride ER 10 MG 1 tablet Orally Once a day Active Magnesium Active Fluconazole Active Celecoxib 200 MG TAKE 1 CAPSULE [...] Problem Status W/U Status Risk Notes Problem 18708432 Iron deficiency (E61.1) Active confirmed Her CBC is unremarkable and the iron deficiency has resolved. 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 She is able to live her life normally, however. Problem 723428704 Obesity (BMI 30-39.9) (E66.9) Active confirmed Since her last visit she has lost 8 pounds. Her nutritional status seems adequate. Her appetite is good and no sign of cancer recurrence was noted. I recommend she continue to lose weight at a moderate pace until the body mass index is normal. Problem 929754737 Gastroesophageal reflux disease, esophagitis presence not specified (K21.9) Active confirmed Her esophageal reflux is well controlled with [id number]-wjk-jefz ter medication. No change in her regimen is necessary today. 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 This should be no problem with her adjuvant chemotherapy. 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 Surveillance will continue. The rectal examination and stool guaiac today was unremarkable. Problem 86313885 Hypertension, unspecified type (I10) Active confirmed Her blood pressure is in the normal range today is 143/85. No change in her regimen as indicated.She was referred back to primary care for management of her slightly elevated blood pressure. Problem 57732474 Irritable bowel syndrome, unspecified type (K58.9) Active confirmed His irritable bowel syndrome is quiet at this time and not bothering her much. Problem 284002607 Folic acid deficiency (E53.8) Active confirmed Her primary care physician, Dr. Tucker, has begun on folic acid. I will speak to him about the low iron in the trending low vitamin B12 is well. Problem 003954775 Neuropathic pain (M79.2) Active confirmed Her pain is present but minimal at this time. She is able to conduct all the activities of daily life without impairment. She is continuing current therapy which is controlling the symptomatic lately. Problem 9238117118837765 Arthritis of right knee (M17.11) Active confirmed Vital Signs Heart Rate 86 /min 06/25/2024 Temperature 97.9 degrees Fahrenheit 06/25/2024 Blood pressure diastolic 85 mm Hg 06/25/2024 Height 65 in 06/25/2024 Blood pressure systolic 143 mm Hg 06/25/2024 Weight 189 lbs 06/25/2024 BMI 31.45 kg/m2 06/25/2024 Encounters Encounter Location Date Provider Diagnosis Jer Gill III, MD [address] [place] [address] [place] [address] 06/25/2024 Jer Gill Hypertension, unspec ified type I10 ; Adenocarcinoma of transverse colon C18.4 ; Obesity (BMI 30-39.9) E66.9 ; Gastroesophageal reflux disease, esophagitis presence not specified K21.9 ; Asthma due to environmental allergies J45.909 ; Irritable bowel syndrome, unspecified type K58.9 and Drug-induced polyneuropathy G62.0 Jer Gill III, MD [address] [place] [address] [place] [address] 06/28/2024 Jer Gill Assessments Encounter Date Diagnosis [...] Her esophageal reflux is well controlled with lkrl-cvq-xqoukzq medication. No change in her regimen is [...] Order Date PROFILE, RANDOM (COMPREHENSIVE METABOLIC ) 10/21/2017 PROFILE, RANDOM (COMPREHENSIVE METABOLIC ) 05/05/2018 PROFILE, RANDOM (COMPREHENSIVE METABOLIC ) 12/10/2017 PROFILE, RANDOM (COMPREHENSIVE METABOLIC ) 03/19/2019 PROFILE, RANDOM (COMPREHENSIVE METABOLIC ) 01/07/2018 PROFILE, RANDOM (COMPREHENSIVE METABOLIC ) 11/12/2017 PROFILE, RANDOM (COMPREHENSIVE METABOLIC ) 12/18/2018 FREE T4 (FT4) 03/19/2019 TSH (THYROID STIMULATING HORMONE) 2018 CEA 12/18/2018 CEA 03/19/2019 CEA 10/21/2017 CEA 05/05/2018 CEA 01/07/2018 CEA 11/12/2017 CBC w DIFF 01/07/2018 CBC w DIFF 11/12/2017 CBC w DIFF 12/18/2018 CBC w DIFF 03/19/2019 CBC w DIFF 12/10/2017 CBC w DIFF 10/21/2017 CBC w DIFF 05/05/2018 SED RATE (ESR) 12/18/2018 MAMMOGRAM DIGITAL BILATERAL SCREEN 06/21 Next Appt Details Provider Name:Jer Gill , 06/27/2025 10:30:00 AM, [address] [place] [address] [address] [place], [place], [address], Insurance Providers Payer Name Payer Address Payer Phone Subscriber Number Group Number Insured Name Patient Relationship to Insured Coverage Start Date Coverage End Date MEDICARE [place] [address] [place] [phone] [id number] KENYETTA LEO Self - patient is the insured [employer] [address] [place] [address] [id number] KENYETTA LEO Self - patient is the [...] bladder suspension 2004 partial hysterectomy 2003 cholecystectomy 1980 appendectomy 1960 tonsillectomy and adenoidectomy 1955
[2025-02-11 15:30] VITALS: BP 140/70; PULSE 70; RESP 16; TEMP 36.7; O2SAT 97; BMI 32.3
== END 2025-02-11 16:19 | disposition home or self-care (01) ==
LOC: HO.HMCHD 15:22
PROVIDERS: PCP Internal Medicine; Visit Provider Physician Assistant
DX: I10 Essential (primary) hypertension (principal); E89.0 Postprocedural hypothyroidism; M54.50 Low back pain, unspecified; R25.2 Cramp and spasm; R19.7 Diarrhea, unspecified

== ENCOUNTER → 2025-02-11 15:21 | Outpatient (BNVA) | payer MEDICARE, OTHER, SELFPAY | PROVIDERS: PCP Internal Medicine; Visit Provider Physician Assistant | DX: I10 Essential (primary) hypertension (principal); E89.0 Postprocedural hypothyroidism; M54.50 Low back pain, unspecified; R25.2 Cramp and spasm; R19.7 Diarrhea, unspecified; K21.9 Gastro-esophageal reflux disease without esophagitis; G62.9 Polyneuropathy, unspecified; Z85.850 Personal history of malignant neoplasm of thyroid; Z85.038 Personal history of other malignant neoplasm of large intestine; Z79.899 Other long term (current) drug therapy | CPT/HCPCS: 99212 ==

== ENCOUNTER 2025-02-12 10:16 | Outpatient (REF) | payer MEDICARE, OTHER, SELFPAY ==
--- OUTSIDE RECORDS SUMMARY | 2024-06-25 06:30 | XMS_ITS ---
Author Organization Jer Gill III, MD Address [address] [place] [address] [place] [address] Care Team Providers Care Credit Collector Name Role Phone Anibal Tucker MD Primary Care Provider UnavailDr. Jer Austin III Unavailable [phone] Jer Zelaya MD Unavailable Unavailable Allergies Allergen [...] Date Provider Diagnosis Jer Gill III, MD [address] [place] [address] [place] [address] 06/25/2024 Jer Gill Hypertension, unspec ified type [...] Her esophageal reflux is well controlled with ixmc-nlc-qznrjrb medication. No change in her regimen is [...] Celecoxib 200 MG TAKE 1 CAPSULE BY [facility] DAILY (STOP IBUPROFEN) Oral Combivent Respimat Omeprazole 20 MG 1 capsule Orally Once a day amLODIPine Besylate 10 MG 1 tablet Orally Once a day oxyBUTYnin Chloride ER 10 MG 1 tablet Orally Once a day Fluconazole Gabapentin 300 MG TAKE 1 CAPSULE BY [facility] FOUR TIMES A DAY FOR 30 DAYS Next Appt Details Follow Up: 1 Year, Reason: o v Provider Name:Jer Gill , 06/27/2025 10:30:00 AM, [address] [place] [address] DR [facility] [place], [place], [address], Progress Notes * MIKHAIL LEOOB: 2 (84 yo F)Acc No.[id number]:06/25/2024 Progress Notes Patient: KENYETTA ARAGON Provider: Prateek Gill MD :1940 A ge:84 Y S ex:Female Date:06/25/2024 Address: [address], [place] , [id number] Pcp:Anibal Tucker MD Subjective: * Chief Complaints: * H istory of resected adenocarcinoma of the transverse colonHypertensionGERDObesityAsthmaArthritis of the right knee * HPI: C OVID-19 Screening: She returns periodically for assessment after a successful treatment of transverse colon adenocarcinoma. She has had no further gastrointestinal symptoms. She is seeing a natural physician in [facility] for her arthritis. Her esophageal reflux symptoms [...] :Her esophageal reflux is well controlled with bxhy-wdg-kxsjzkf medication. No change in her regimen is [...] 0 06/25/2024 Generated for Jos parekh/Harmony/Bhavyaitting on: 04/14/2024 10:18 AM EDT History and Physical Notes * HPI (History [...]
--- OUTSIDE RECORDS SUMMARY | 2024-06-28 07:40 | XMS_ITS ---
Author Organization Jer Gill III, MD Address [address] [place] [address] Care Team Providers Care Hat And Cap Sewer Name Role Phone Anibal Tucker MD Primary Care Provider Dr. Jer Patton III Unavailable Jer Zelaya MD REASON FOR VISIT Regarding Colonoscopy Encounters Encounter Location Date Provider Diagnosis Jer Gill III, MD [address] [place] [address] [place] [address] 06/28/2024 Jer Gill Plan Of Treatment Next Appt Details Provider Name:Jer Gill , 06/27/2025 10:30:00 AM, [address] [place] [address] [place], [address], Progress Notes * MIKHAIL LEOOB: 2 (84 yo F)Acc No.[id number]:06/28/2024 Patient: KENYETTA ARAGON :1940 A ge:84 Y S ex:Female Address:[place], [address] * true * Date: Generated for Jordyi izabella/Harmony/eTransmitting on: 04/14/2024 10:19 AM EDT
--- OUTSIDE RECORDS SUMMARY | 2025-02-12 10:19 | XMS_ITS | Patient Health Record ---
Author Organization Jer Gill III, MD Address [address] [place] [address] [place] [address] Care Team Providers Care Appliance Tester Name Role Phone Anibal Tucker MD Primary Care Provider Dr. Jer Patton III Unavailable Jer Zelaya MD Unavailable Unavailable [...] Problem Status W/U Status Risk Notes Problem 26205460 Iron deficiency (E61.1) Active confirmed Her CBC is unremarkable and the iron deficiency has resolved. 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 She is able to live her life normally, however. Problem 392544465 Obesity (BMI 30-39.9) (E66.9) Active confirmed Since her last visit she has lost 8 pounds. Her nutritional status seems adequate. Her appetite is good and no sign of cancer recurrence was noted. I recommend she continue to lose weight at a moderate pace until the body mass index is normal. Problem 138122224 Gastroesophageal reflux disease, esophagitis presence not specified (K21.9) Active confirmed Her esophageal reflux is well controlled with wtka-jsb-zqac ter medication. No change in her regimen is necessary today. 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 This should be no problem with her adjuvant chemotherapy. 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 Surveillance will continue. The rectal examination and stool guaiac today was unremarkable. Problem 95734030 Hypertension, unspecified type (I10) Active confirmed Her blood pressure is in the normal range today is 143/85. No change in her regimen as indicated.She was referred back to primary care for management of her slightly elevated blood pressure. Problem 69651275 Irritable bowel syndrome, unspecified type (K58.9) Active confirmed His irritable bowel syndrome is quiet at this time and not bothering her much. Problem 348165998 Folic acid deficiency (E53.8) Active confirmed Her primary care physician, Dr. Tucker, has begun on folic acid. I will speak to him about the low iron in the trending low vitamin B12 is well. Problem 968071267 Neuropathic pain (M79.2) Active confirmed Her pain is present but minimal at this time. She is able to conduct all the activities of daily life without impairment. She is continuing current therapy which is controlling the symptomatic lately. Problem 5598498835452984 Arthritis of right knee (M17.11) Active confirmed Vital Signs Heart Rate 86 /min 06/25/2024 Temperature 97.9 degrees Fahrenheit 06/25/2024 Blood pressure diastolic 85 mm Hg 06/25/2024 Height 65 in 06/25/2024 Blood pressure systolic 143 mm Hg 06/25/2024 Weight 189 lbs 06/25/2024 BMI 31.45 kg/m2 06/25/2024 Encounters Encounter Location Date Provider Diagnosis Jer Gill III, MD [address] [place] [address] [place] [address] 06/25/2024 Jer Gill Hypertension, unspec ified type I10 ; Adenocarcinoma of transverse colon C18.4 ; Obesity (BMI 30-39.9) E66.9 ; Gastroesophageal reflux disease, esophagitis presence not specified K21.9 ; Asthma due to environmental allergies J45.909 ; Irritable bowel syndrome, unspecified type K58.9 and Drug-induced polyneuropathy G62.0 Jer Gill III, MD [address] [place] [address] [place] [address] 06/28/2024 Jer Gill Assessments Encounter Date Diagnosis [...] Her esophageal reflux is well controlled with obgs-onb-rsgrlhd medication. No change in her regimen is [...] 03/19/2019 TSH (THYROID STIMULATING HORMONE) 2018 CEA 11/12/2017 CEA 12/18/2018 CEA 03/19/2019 CEA 10/21/2017 CEA 05/05/2018 CEA 01/07/2018 CBC w DIFF 01/07/2018 CBC w DIFF 11/12/2017 CBC w DIFF 12/18/2018 CBC w DIFF 03/19/2019 CBC w DIFF 12/10/2017 CBC w DIFF 10/21/2017 CBC w DIFF 05/05/2018 SED RATE (ESR) 12/18/2018 MAMMOGRAM DIGITAL BILATERAL SCREEN 06/21 Next Appt Details Provider Name:Jer Gill , 06/27/2025 10:30:00 AM, [address] [place] [address] [address], [place], [address], Insurance Providers Payer Name Payer Address Payer Phone Subscriber Number Group Number Insured Name Patient Relationship to Insured Coverage Start Date Coverage End Date MEDICARE NGS [address] [place] [phone] [id number] KENYETTA LEO Self - patient is the insured [employer] [address] [place] [phone] [id number] KENYETTA LEO Self - patient is the [...]
--- OUTSIDE RECORDS SUMMARY | 2025-02-12 10:19 | XMS_ITS | Patient Health Record ---
Author Organization [facility] Address [address] [place] [address] Care Team Providers Care Custodian Name Role Phone Caitlin (RETIRED) Anibal SALAZAR Primary Care Provide r Henrik Jer Zelaya Unavailable [phone] Allergies No Known Allergies Reason For Referral [...] Problem Screening for malignant neoplasm of colon (536416233) Encounter for screening for malignant neoplasm of colon (Z12.11) Active confirmed Problem History of adenomatous polyp of colon (760118464) History of adenomatous polyp of colon (Z86.010) Active confirmed Problem Malignant neoplasm of transverse colon (606419237) 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 Problem History of polyp of colon (situation) (073657326) History of colon polyps (Z86.010) Active confirmed Problem Gastroesophageal reflux disease (746458283) Gastroesophageal reflux disease, esophagitis presence not specified (K21.9) Active confirmed Problem History of malignant neoplasm of colon (142710639) History of colon cancer (Z85.038) Active confirmed Problem detention current use of non-steroidal anti-inflammatory drug (508088247027820) NSAID long-term use (Z79.1) Active confirmed Problem Chronic ulcerative pancolitis (595861585) Ulcerative pancolitis without complication (K51.00) Active confirmed Problem Diarrhea (56143017) Diarrhea, unspecified type (R19.7) Active confirmed Problem Irritable bowel syndrome (91720360) Irritable bowel syndrome with both constipation and diarrhea (K58.2) Active confirmed Problem Essential hypertension (23297352) Hypertension, unspecified type (I10) Active confirmed Problem 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
[2025-02-12 11:24] LABS: Alanine Aminotransferase 21 U/L (0-31); Albumin Level 4.5 g/dL (3.5-5.0); Alkaline Phosphatase 86 U/L (39-117); Aspartate Amino Transferase 28 U/L (5-31); Cholesterol 131 mg/dL (<200); HDL Cholesterol 47 mg/dL (>40); Magnesium 1.6 mg/dL (1.6-2.6); Total Protein 6.6 g/dL (6.5-8.0); Triglycerides 108 mg/dL (<150)
[2025-02-14 15:41] LABS: Anion Gap 13 (12-20); Blood Urea Nitrogen 19 mg/dL (9-16); Calcium 9.5 mg/dL (8.4-10.2); Carbon Dioxide 29 mmol/L (22-29); Chloride 105 mmol/L (96-108); Estimated Glomerular Filt Rate 56; Potassium 4.5 mmol/L (3.3-5.1); Sodium 142 mmol/L (135-145)
== END 2025-02-12 10:17 | disposition home or self-care (01) ==
LOC: HO.LAB 10:16
PROVIDERS: PCP Physician Assistant; Visit Provider Physician Assistant
DX: I10 Essential (primary) hypertension (principal); E89.0 Postprocedural hypothyroidism; G62.9 Polyneuropathy, unspecified; R25.2 Cramp and spasm; Z85.850 Personal history of malignant neoplasm of thyroid
CPT/HCPCS: 36415; 80048; 80061; 80076; 83735; 84443

== ENCOUNTER 2025-02-16 15:05 | Outpatient (REF) | payer MEDICARE, OTHER, SELFPAY ==
--- OUTSIDE RECORDS SUMMARY | 2024-06-25 05:30 | XMS_ITS ---
Author Organization Jer Gill III, MD Address [address] [place] [address] [place] [address] Care Team Providers Care Wood Getter Name Role Phone Anibal Tucker MD Primary [...] Provider Diagnosis Jer Gill III, MD [address] [place] [address] [place] [address] 06/25/2024 Jer Gill Hypertension, unspec ified type [...] Her esophageal reflux is well controlled with ahal-hxd-bncutgy medication. No change in her regimen is [...] Celecoxib 200 MG TAKE 1 CAPSULE BY [facility] DAILY (STOP IBUPROFEN) Oral Combivent Respimat Omeprazole 20 MG 1 capsule Orally Once a day amLODIPine Besylate 10 MG 1 tablet Orally Once a day oxyBUTYnin Chloride ER 10 MG 1 tablet Orally Once a day Fluconazole Gabapentin 300 MG TAKE 1 CAPSULE BY [facility] FOUR TIMES A DAY FOR 30 DAYS Next Appt Details Follow Up: 1 Year, Reason: o v Provider Name:Jer Gill , 06/27/2025 10:30:00 AM, [address] [place] [address] DR [facility], [place], [address], Progress Notes * MIKHAIL LEOOB: 2 (84 yo F)Acc No.[id number]:06/25/2024 Progress Notes Patient: KENYETTA ARAGON Provider: Prateek Gill MD :1940 A ge:84 Y S ex:Female Date:06/25/2024 Address: [address], [place] , [id number] Pcp:Anibal Tucker MD Subjective: * Chief Complaints: * H istory of resected adenocarcinoma of the transverse colonHypertensionGERDObesityAsthmaArthritis of the right knee * HPI: C OVID-19 Screening: She returns periodically for assessment after a successful treatment of transverse colon adenocarcinoma. She has had no further gastrointestinal symptoms. She is seeing a natural physician in [facility] for her arthritis. Her esophageal reflux [...] :Her esophageal reflux is well controlled with pmwb-nsu-rwzocyq medication. No change in her regimen is [...] 0 06/25/2024 Generated for Jos parekh/Harmony/Bhavyaitting on: 04/18/2024 06:06 PM EST History and Physical Notes * [...]
--- OUTSIDE RECORDS SUMMARY | 2024-06-28 06:40 | XMS_ITS ---
Author Organization Jer Gill III, MD Address [address] [place] [address] Care Team Providers Care Blown Film Extrusion Operator Name Role Phone Anibal Tucker MD Primary Care Provider Esperanzaa Dr. Jer Groves III Unavailable [phone] Jer Zelaya MD REASON FOR VISIT Regarding Colonoscopy Encounters Encounter Location Date Provider Diagnosis Jer Gill III, MD [address] [place] [address] [place] [address] 06/28/2024 Jer Gill Plan Of Treatment Next Appt Details Provider Name:Jer Gill , 06/27/2025 10:30:00 AM, [address] [place] [address] [place], [address], Progress Notes * MIKHAIL LEOOB: 2 (84 yo F)Acc No.[id number]:06/28/2024 Patient: KENYETTA ARAGON :1940 A ge:84 Y S ex:Female Address:[place], [address] * true * Date: Generated for Jos parekh/Harmony/eTransmitting on: 04/18/2024 06:06 PM EST
--- OUTSIDE RECORDS SUMMARY | 2025-02-16 18:07 | XMS_ITS | Patient Health Record ---
Author Organization [facility] Address [address] [place] [address] Care Team Providers Care Food Beverage Supervisor Name Role Phone Caitlin (RETIRED) Anibal SALAZAR Primary Care Provide r Henrik Jer Zelaya Unavailable [phone] Allergies No Known Allergies Reason For Referral [...] Problem Screening for malignant neoplasm of colon (671544933) Encounter for screening for malignant neoplasm of colon (Z12.11) Active confirmed Problem History of adenomatous polyp of colon (204987580) History of adenomatous polyp of colon (Z86.010) Active confirmed Problem Malignant neoplasm of transverse colon (020543295) 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 Problem History of polyp of colon (situation) (817354991) History of colon polyps (Z86.010) Active confirmed Problem Gastroesophageal reflux disease (390346176) Gastroesophageal reflux disease, esophagitis presence not specified (K21.9) Active confirmed Problem History of malignant neoplasm of colon (401177099) History of colon cancer (Z85.038) Active confirmed Problem jail current use of non-steroidal anti-inflammatory drug (741363911872065) NSAID long-term use (Z79.1) Active confirmed Problem Chronic ulcerative pancolitis (428256258) Ulcerative pancolitis without complication (K51.00) Active confirmed Problem Diarrhea (70689036) Diarrhea, unspecified type (R19.7) Active confirmed Problem Irritable bowel syndrome (73850913) Irritable bowel syndrome with both constipation and diarrhea (K58.2) Active confirmed Problem Essential hypertension (65383563) Hypertension, unspecified type (I10) Active confirmed Problem History of gastrointestinal tract bypass (633700666) 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
--- OUTSIDE RECORDS SUMMARY | 2025-02-16 18:07 | XMS_ITS | Patient Health Record ---
Author Organization Jer Gill III, MD Address [address] [place] [address] [place] [address] Care Team Providers Care Consulting Project Director Name Role Phone Anibal Tucker MD [...] Problem Status W/U Status Risk Notes Problem 79758885 Iron deficiency (E61.1) Active confirmed Her CBC is unremarkable and the iron deficiency has resolved. 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 She is able to live her life normally, however. Problem 493592691 Obesity (BMI 30-39.9) (E66.9) Active confirmed Since her last visit she has lost 8 pounds. Her nutritional status seems adequate. Her appetite is good and no sign of cancer recurrence was noted. I recommend she continue to lose weight at a moderate pace until the body mass index is normal. Problem 748537264 Gastroesophageal reflux disease, esophagitis presence not specified (K21.9) Active confirmed Her esophageal reflux is well controlled with ephq-cer-vkkc ter medication. No change in her regimen is necessary today. 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 This should be no problem with her adjuvant chemotherapy. 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 Surveillance will continue. The rectal examination and stool guaiac today was unremarkable. Problem 58247776 Hypertension, unspecified type (I10) Active confirmed Her blood pressure is in the normal range today is 143/85. No change in her regimen as indicated.She was referred back to primary care for management of her slightly elevated blood pressure. Problem 16882933 Irritable bowel syndrome, unspecified type (K58.9) Active confirmed His irritable bowel syndrome is quiet at this time and not bothering her much. Problem 443877067 Folic acid deficiency (E53.8) Active confirmed Her primary care physician, Dr. Tucker, has begun on folic acid. I will speak to him about the low iron in the trending low vitamin B12 is well. Problem 394755379 Neuropathic pain (M79.2) Active confirmed Her pain is present but minimal at this time. She is able to conduct all the activities of daily life without impairment. She is continuing current therapy which is controlling the symptomatic lately. Problem 9914625511762949 Arthritis of right knee (M17.11) Active confirmed Vital Signs Heart Rate 86 /min 06/25/2024 Temperature 97.9 degrees Fahrenheit 06/25/2024 Blood pressure diastolic 85 mm Hg 06/25/2024 Height 65 in 06/25/2024 Blood pressure systolic 143 mm Hg 06/25/2024 Weight 189 lbs 06/25/2024 BMI 31.45 kg/m2 06/25/2024 Encounters Encounter Location Date Provider Diagnosis Jer Gill III, MD [address] [place] [address] [place] [address] 06/25/2024 Jer Gill Hypertension, unspec ified type I10 ; Adenocarcinoma of transverse colon C18.4 ; Obesity (BMI 30-39.9) E66.9 ; Gastroesophageal reflux disease, esophagitis presence not specified K21.9 ; Asthma due to environmental allergies J45.909 ; Irritable bowel syndrome, unspecified type K58.9 and Drug-induced polyneuropathy G62.0 Jer Gill III, MD [address] [place] [address] [place] [address] 06/28/2024 Jer Gill Assessments Encounter Date Diagnosis [...] Her esophageal reflux is well controlled with mvdt-cxz-jzdkuqj medication. No change in her regimen is [...] Provider Name:Jer Gill , 06/27/2025 10:30:00 AM, [address] [place] [address] [address], [place], [address], Insurance Providers Payer Name Payer Address Payer Phone Subscriber Number Group Number Insured Name Patient Relationship to Insured Coverage Start Date Coverage End Date MEDICARE NGS [address] [place] [phone] [id number] KENYETTA LEO Self - patient is the insured [employer] [address] [place] [phone] [id number] KENYETTA LEO Self - patient is the [...]
--- OUTSIDE RECORDS SUMMARY | 2025-02-16 18:07 | XMS_ITS | Data Portability ---
Author Organization JENNIFER Raphael s, [address] Address [address] [place] [address] Assessment No assessment recorded. Plan of Treatment Reminders Order Date Submit Date Provider Last Modified By Organization Details Last Modified Time Details Appointments None recorded. Lab None recorded. Referral die repair referral 2023 024 [email or web address] Not available 4 08:06:04 Procedures None recorded. Surgeries None recorded. Imaging XR, foot, 3 or more view 2023 024 [facility], [address] [place], [address], 4 09:55:01 Medication Orders None recorded. Patient TargetsNo targets recorded. Patient InstructionsNo instructions recorded. Reason for Referral Prize Fighter Referral for Rosa Maria pheral nerve disease Referring Physician: Jean-Claude Martinez, Urgent Care, Encounter Date: 09/14/2023 Results Created Date Observation Date Name Description Value Unit Range Abnormal Flag Note LastModifiedBy Organization Detail LastModifiedTime 09/15/19 24 09/15/2023 XR, foot, 3 or more view No observ ation record ed. [email or web address] [facility] [address] [place], [address], 09/15/2023 09:57:33 Result Notes None recorded. Problems Name Problem SNOMED Code Status Onset Date Resolution Date Notes Provider Name and Address Organization Details Recorded Time Neuropathy 877951857 Active 2023 JENNIFER Benson [facility] 4 15:24:11 Hypertensive disorder 40747532 Active 2023 Ghazala daniels PA - [facility] 4 15:24:18 Malignant neoplasm of colon 439601602 Active 2023 Ghazala daniels, [facility] - [facility] [...] Updated DateTime 09/14/2023 167.64 cm 30.7 kg/m2 54483.55 g Ghazala Godanielle Coy PA [facility] 09/14/2023 15:18:03 Social History Question Answer Notes LastModified by Today Tix Details LastModified Time Tobacco Smoking Status Never [...] Functional Status Question Answer Note LastModified by Today Tix Details LastModified Time Do you use any [...] ICD10 Code Diagnosis IMO Codes Diagnosis Note 43208790 Jean-Claude Martinez DO [address] [place] [address] 09/14/2023 15:13:08 09/14/2023 15:46:37 Pain in left foot 1484277202 35602 M79.672 h/o neuropathy 2/2 chemo check Xray r/o Fxpt will RTC tomorrow for xray Peripheral nerve disease 516804746 G64 referral to podiatry for further eval and treatment 71742937 JENNIFER [address] [place] [address] 09/15/2023 09:26:50 09/15/2023 09:51:34 Left without being seen [id number] 9102 Z53.21 Pt was here for imaging [...] MEDICARE B-[place]: [employer] Lillian Manjarrez [id number] Lillian Manjarrez 10/15/2023 2 [facility] (MEDICAID HMO) [id number] Lillian Manjarrez [id number] Lillian Manjarrez Notes Date Note Type Note [...] Tabit, DO [address] [place], [place], [address], [place] PA - [facility] 09/14/2023 16:05:09 OBGyn Episode No OBEpisode recorded.
[2025-02-17 13:28] LABS: E. coli EAEC Not Detected (Not Detect.); E. coli EPEC Not Detected (Not Detect.); E. coli ETEC Not Detected (Not Detect.); E. coli STEC Not Detected (Not Detect.); Shigella sp./EIEC Not Detected (Not Detect.)
== END 2025-02-16 15:06 | disposition home or self-care (01) ==
LOC: HO.LNP 15:05
PROVIDERS: Visit Provider Physician Assistant
DX: R19.7 Diarrhea, unspecified (principal)
CPT/HCPCS: 87507

== ENCOUNTER 2025-03-29 12:24 | Outpatient (AMB) | payer MEDICARE, OTHER, SELFPAY ==
--- OUTSIDE RECORDS SUMMARY | 2024-06-25 05:30 | XMS_ITS ---
Author Organization Jer Gill III, MD Address [address] [place] [address] [place] [address] Care Team Providers Care Drill Instructor Name Role Phone Anibal Tucker MD Primary Care Provider UnavailDr. Jer Austin III Unavailable Jer Zelaya MD Unavailable Unavailable Allergies Allergen (clinical drug ingredient) Drug/Non Drug Allergy documented on EMR Reaction Allergy Type Onset Date Status No Known Drug Allergy Unknown Drug Allergy Active REASON FOR VISIT History of resected adenocarcinoma of the transverse colon, Hypertension, GERD, Obesity, Asthma, Arthritis of the right knee Medications Medication SIG (Take, Route, Frequency, Duration) Notes Start Date End Date Status Vitamin D 1000 UNIT 1 tablet Orally Once a day Active Losartan Potassium 100 MG 1 tablet Orall y Once a day Active Thyroid 60 MG TAKE 1 TABLET BY MARIELA TH EVERY DAY Oral Active Magnesium Active Celecoxib 200 MG TAKE 1 CAPSULE BY [facility] DAILY (STOP IBUPROFEN) Oral Active Combivent Respimat A ctive Omeprazole 20 MG 1 capsule Orally Onc e a day Active amLODIPine Besylate 10 MG 1 tablet Orall y Once a day Active oxyBUTYnin Chloride ER 10 MG 1 tablet Orally Once a day Active Fluconazole Active Gabapentin 300 MG TAKE 1 CAPSULE BY [facility] FOUR TIMES A DAY FOR 30 DAYS Active Social History Tobacco Use: Social History Observation Description Date Details (start date - stop date) Never Smoker NA - NA Tobacco Use/Smoking Question Answer Notes Patient is a nonsmoker Additional Findings: Tobacco Non-User Aggressive non-smoker Vital Signs Temperature 97.9 degrees Fahrenheit 06/26/19 25 Blood pressure systolic 143 mm Hg 06/26/19 25 Blood pressure diastolic 85 mm Hg 025 Heart Rate 86 /min 06/25/2024 Height 65 in 06/25/2024 Weight 189 lbs 06/25/2024 BMI 31.45 kg/m2 06/25/2024 Encounters Encounter Location Date Provider Diagnosis Jer Gill III, MD [address] [place] [address] [place] [address] 06/25/2024 Jer Gill Hypertension, unspec ified type I10 ; Adenocarcinoma of transverse colon C18.4 ; Obesity (BMI 30-39.9) E66.9 ; Gastroesophageal reflux disease, esophagitis presence not specified K21.9 ; Asthma due to environmental allergies J45.909 ; Irritable bowel syndrome, unspecified type K58.9 and 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 No change in her regimen as indicated.She was referred back to primary care for management of her slightly elevated blood pressure. 06/25/2024 Adenocarcinoma of transverse colon (ICD-10 - C18.4) There is no sign of recurrent cancer today. Surveillance will continue. The rectal examination and stool guaiac today was unremarkable. 06/25/2024 Obesity (BMI 30-39.9 ) (ICD-10 - E66.9) Since her last visit she has lost 8 pounds. Her nutritional status seems adequate. Her appetite is good and no sign of cancer recurrence was noted. I recommend she continue to lose weight at a moderate pace until the body mass index is normal. 06/25/2024 Gastroesophageal reflux disease, esophagitis presence not specified (ICD-10 - K21.9) Her esophageal reflux is well controlled with tgln-srz-iyfcwuu medication. No change in her regimen is necessary today. 06/25/2024 Asthma due to environmental allergies (ICD-10 - J45.909) Her asthma is well controlled and she is not wheezing today. This should be no problem with her adjuvant chemotherapy. 06/25/2024 Irritable bowel syndrome, unspecified type (ICD-10 - K58.9) His irritable bowel syndrome is quiet at this time and not bothering her much. 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 She is able to live her life normally, however. Plan Of Treatment Medication Medication Name Sig Start Date Stop Date Notes Vitamin D 1000 UNIT 1 tablet Orally Once a day Losartan Potassium 100 MG 1 tablet Orally Once a day Thyroid 60 MG TAKE 1 TABLET BY MARIELA TH EVERY DAY Oral Magnesium Celecoxib 200 MG TAKE 1 CAPSULE BY [facility] DAILY (STOP IBUPROFEN) Oral Combivent Respimat Omeprazole 20 MG 1 capsule Orally Once a day amLODIPine Besylate 10 MG 1 tablet Orally Once a day oxyBUTYnin Chloride ER 10 MG 1 tablet Orally Once a day Fluconazole Gabapentin 300 MG TAKE 1 CAPSULE BY [facility] FOUR TIMES A DAY FOR 30 DAYS Next Appt Details Follow Up: 1 Year, Reason: o v Provider Name:Jer Gill , 06/27/2025 10:30:00 AM, [address] [place] [address] DR [facility], [place], [address], Progress Notes * MIKHAIL LEOOB: 2 (84 yo F)Acc No.[id number]:06/25/2024 Progress Notes Patient: KENYETTA ARAGON Provider: Prateek Gill MD :1940 A ge:84 Y S ex:Female Date:06/25/2024 Address: [address], [place] , [id number] Pcp:Anibal Tucker MD Subjective: * Chief Complaints: * H istory of resected adenocarcinoma of the transverse colonHypertensionGERDObesityAsthmaArthritis of the right knee * HPI: C OVID-19 Screening: She returns periodically for assessment after a successful treatment of transverse colon adenocarcinoma. She has had no further gastrointestinal symptoms. She is seeing a natural physician in [facility] for her arthritis. Her esophageal reflux symptoms are well controlled. She is trying to lose weight and consume a healthy diet. She has had no recent asthma. Her peripheral pain and neuropathy are stable.? He seems healthy and well today at the age of 84. Questions H ave you had any new onset fever, chills, cough, congestion, sore throat, shortness of breath, muscle aches? N o * ROS: G eneral/Constitutional: pain o nly normal aches and pains. C hills d enies.?Fatigue a dmits. F ever d enies. E NT: Decreased hearing m ild. R espiratory: Cough d enies. C ardiovascular: Chest pain with exertion d enies. D yspnea on exertion?denies. S hortness of breath d enies. G astrointestinal: Constipation d enies. D ecreased appetite d enies.?Diarrhea d enies. H eartburn o ccasional. N ausea d enies. R ectal bleeding d enies. V omiting d enies. H ematology: bruising d enies. p etechiae d enies. S wollen glands n one have been noted. G enitourinary: Frequent urination a small amount. M usculoskeletal: Muscle aches d enies. P ainful joints d enies. S ciatica d enies. W eakness d enies. S kin: Itching d enies. R davina d enies. S kin lesion(s)?denies. N eurologic: Difficulty speaking d enies. D izziness d enies.?Headache d enies. L ow back pain d enies. P sychiatric: Depressed mood d enies. * Medical History: * Surgical History: t onsillectomy and adenoidectomy 1956appendectomy 1960cholecystectomy 1980partial hysterectomy 2004bladder suspension 2004hemithyroidectomy for parathyroid disease 2016rectal prolapse surgey 2004cataract-lens implant both eyes 2007colonoscopy 19 * Hospitalization/Major Diagno stic Procedure: D enies Past Hospitalization * Family History: F ather: , CAD,DM, diagnosed with CVD. M other: , Cancer of the kidney.?2 brother(s) , 1 sister(s) - healthy. 3 daughter(s) - healthy. . There is no family history of cancer of the breast, colon, rectum or prostate. A sister has epilepsy. All 3 daughters have autoimmune diceases. * Social History: T obacco Use: T obacco Use/Smoking P atient is a n onsmoker A dditional Findings: Tobacco Non-User A ggressive non-smoker S he is not working and lives at home with her family. * Medications: T akingMagnesium Fluconazole amLODIPine Besylate 10 MG Tablet 1 tablet Orally Once a day oxyBUTYnin Chloride ER 10 MG Tablet Extended Release 24 Hour 1 tablet Orally Once a day Combivent Respimat Omeprazole 20 MG Capsule Delayed Release 1 capsule Orally Once a day Vitamin D 1000 UNIT Tablet 1 tablet Orally Once a day Losartan Potassium 100 MG Tablet 1 tablet Orally Once a day Celecoxib 200 MG Capsule TAKE 1 CAPSULE BY MOUTH DAILY (STOP IBUPROFEN) Oral Gabapentin 300 MG Capsule TAKE 1 CAPSULE BY MOUTH FOUR TIMES A DAY FOR 30 DAYS Thyroid 60 MG Tablet TAKE 1 TABLET BY MOUTH EVERY DAY Oral Medication List reviewed and reconciled with the patientTaking Magnesium Taking Fluconazole Taking amLODIPine Besylate 10 MG Tablet 1 tablet Orally Once a day Taking oxyBUTYnin Chloride ER 10 MG Tablet Extended Release 24 Hour 1 tablet Orally Once a day Taking Combivent Respimat Taking Omeprazole 20 MG Capsule Delayed Release 1 capsule Orally Once a day Taking Vitamin D 1000 UNIT Tablet 1 tablet Orally Once a day Taking Losartan Potassium 100 MG Tablet 1 tablet Orally Once a day Taking Celecoxib 200 MG Capsule TAKE 1 CAPSULE BY MOUTH DAILY (STOP IBUPROFEN) Oral Taking Gabapentin 300 MG Capsule TAKE 1 CAPSULE BY MOUTH FOUR TIMES A DAY FOR 30 DAYS Taking Thyroid 60 MG Tablet TAKE 1 TABLET BY MOUTH EVERY DAY Oral Medication List reviewed and reconciled with the patient * Allergies: N o Known Drug Allergyno[Allergies Verified] Objective: * Vitals: H t: 65, Wt:189, BMI:31.45, BP:143/85, HR:86, Temp:97.9, Wt-k.73. * Examination: G eneral Examination: GENERAL APPEARANCE: p leasant, well nourished, well developed, in no acute distress, calm and relaxed, obese, elderly woman. HEAD: a traumatic, normocephalic. EYES: e pretty, perrla, anicteric, conjugate. EARS: n ormal. NOSE: s eptum intact. ORAL CAVITY: n ormal, unremarkable. NECK/THYROID: n o jugular venous distention, no carotid bruit, thyroid normal. LYMPH NODES: n o enlarged lymph nodes,spleen normal. SKIN: n o suspicious lesions, anicteric. HEART: n o clicks, gallops, murmurs, or rubs, regular rhythm, S1, S2 normal, no s3, or vascular bruits. LUNGS: c lear to auscultation . BREASTS: N ot examined. ABDOMEN: b owel sounds normal, no ascites, no organomegaly, no mass, centripital obesity, Healed old surgical scar. RECTAL EXAM: n ot examined. MUSCULOSKELETAL: e xtremities unremarkable, no clubbing, cyanosis or edema, Crepitus and pain right knee. PERIPHERAL PULSES: n ormal. NEUROLOGIC: a lert and oriented, cranial nerves 2-12 grossly intact, deep tendon reflexes 2+ symmetrical, motor strength normal upper and lower extremities, sensory exam intact. PSYCH: a lert, oriented, thought process logical, goal directed, speech clear, mood/affect full range, judgement and insight good, good eye contact, cooperative with exam, cognitive function intact. Assessment: * Assessment: 1. A denocarcinoma of transverse colon - C18.4 (Primary) N otes :There is no sign of recurrent cancer today. Surveillance will continue. The rectal examination and stool guaiac today was unremarkable. 2 . H ypertension, unspecified type - I10 N otes :Her blood pressure is in the normal range today is 143/85. No change in her regimen as indicated.She was referred back to primary care for management of her slightly elevated blood pressure. 3 . O besity (BMI 30-39.9) - E66.9 N otes :Since her last visit she has lost 8 pounds. Her nutritional status seems adequate. Her appetite is good and no sign of cancer recurrence was noted. I recommend she continue to lose weight at a moderate pace until the body mass index is normal. 4 . G astroesophageal reflux disease, esophagitis presence not specified - K21.9 N otes :Her esophageal reflux is well controlled with jglz-hta-yeewyrq medication. No change in her regimen is necessary today. 5 . A sthma due to environmental allergies - J45.909 N otes :Her asthma is well controlled and she is not wheezing today. This should be no problem with her adjuvant chemotherapy. 6 . I rritable bowel syndrome, unspecified type - K58.9 N otes :His irritable bowel syndrome is quiet at this time and not bothering her much. 7 . 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 She is able to live her life normally, however. Plan: * Treatment: 2. H ypertension, unspecified type Continue Fluconazole; C ontinue amLODIPine Besylate Tablet, 10 MG, 1 tablet, Orally, Once a day; C ontinue oxyBUTYnin Chloride ER Tablet Extended Release 24 Hour, 10 MG, 1 tablet, Orally, Once a day; C ontinue Combivent Respimat; C ontinue Omeprazole Capsule Delayed Release, 20 MG, 1 capsule, Orally, Once a day; C ontinue Vitamin D Tablet, 1000 UNIT, 1 tablet, Orally, Once a day; C ontinue Losartan Potassium Tablet, 100 MG, 1 tablet, Orally, Once a day; C ontinue Celecoxib Capsule, 200 MG, TAKE 1 CAPSULE BY MOUTH DAILY (STOP IBUPROFEN), Oral. 3. O thers Continue Gabapentin Capsule, 300 MG, TAKE 1 CAPSULE BY MOUTH FOUR TIMES A DAY FOR 30 DAYS. ? * Procedure Codes: * Preventive Medicine: Counseling: C are goal follow-up plan: Counseling for abnormal BMI given Y es Above Normal BMI Follow-up D ietary management education, guidance, and counseling, Dietary needs education, Exercise promotion: strength training, Exercise promotion: stretching, Feeding regime, Giving encouragement to exercise, Lifestyle education regarding diet, Nutrition / feeding management, Nutrition therapy, Prescribed activity/exercise education, Prescribed diet education, Prescribed dietary intake, Special diet education, Weight monitoring , Intervention, Order not done: Medical or Other reason not done * Follow Up: 1 Year (Reason: ov) * Images: * Sign off status: Completed true * Provider: Prateek Gill MD Date: 0 06/25/2024 Generated for Jos parekh/Harmony/Bhavyaitting on: 1 05/30/2024 04:13 PM EST History and Physical Notes * HPI (History of Present Illness) Category Sub-Category Detail Notes COVID-19 Screening Questions Have you had any new onset fever, chills, cough, congestion, sore throat, shortness of breath, muscle aches?: No Examination Category Sub-Category Detail Notes General Examination GENERAL APPEARANCE: pleasant , well nourished, well developed, in no acute distress, calm and relaxed, obese, elderly woman HEAD: atraumatic, normocep halic EYES: eomi, perrla, anicte brant, conjugate EARS: normal NOSE: septum intact NECK/THYROID: no jugular venous di stention, no carotid bruit, thyroid normal HEART: no clicks, gallops, murmurs, or rubs, regular rhythm, S1, S2 normal, no s3, or vascular bruits LUNGS: clear to auscultatio n ABDOMEN: bowel sounds normal, no ascites, no organomegaly, no mass, centripital obesity, Healed old surgical scar NEUROLOGIC: alert and oriented, cranial nerves 2-12 grossly intact, deep tendon reflexes 2+ symmetrical, motor strength normal upper and lower extremities, sensory exam intact SKIN: no suspicious lesion s, anicteric PERIPHERAL PULSES: normal BREASTS: Not examined MUSCULOSKELETAL: extremities unremark able, no clubbing, cyanosis or edema, Crepitus and pain right knee LYMPH NODES: no enlarged lymph no asia,spleen normal RECTAL EXAM: not examined PSYCH: alert, oriented, tho ught process logical, goal directed, speech clear, mood/affect full range, judgement and insight good, good eye contact, cooperative with exam, cognitive function intact ORAL CAVITY: normal, unremarkable
--- OUTSIDE RECORDS SUMMARY | 2024-06-28 06:40 | XMS_ITS ---
Author Organization Jer Gill III, MD Address [address] [place] [address] Care Team Providers Care Director Of Global Talent Name Role Phone Anibal Tucker MD Primary Care Provider Esperanzaa Dr. Jer Groves III Unavailable Jer Zelaya MD REASON FOR VISIT Regarding Colonoscopy Encounters Encounter Location Date Provider Diagnosis Jer Gill III, MD [address] [place] [address] [place] [address] 06/28/2024 Jer Gill Plan Of Treatment Next Appt Details Provider Name:Jer Gill , 06/27/2025 10:30:00 AM, [address] [place] [address] [place], [address], Progress Notes * MIKHAIL LEOOB: 2 (84 yo F)Acc No.[id number]:06/28/2024 Patient: KENYETTA ARAGON :1940 A ge:84 Y S ex:Female Address:[place], [address] * true * Date: Generated for Jordyi izabella/Harmony/eTransmitting on: 05/30/2024 04:13 PM EST
[2025-03-29 12:29] VITALS: BP 130/72; PULSE 93; O2SAT 94; BMI 31.5
--- NOTE | 2025-03-29 12:29 | A.OFFVIS_ITS ---
Vital Signs 03/29/25 12:29 Height 5 ft 5 in Weight 189 lb 9.561 oz BMI 31.5 BP 130/72 Blood Pressure Location Rt brachial Position Sitting Pulse 93 Pulse Source Pulse Oximeter Pulse Oximetry (%) 94 Oxygen Delivery Method Room Air Intake Visit Reasons: Postprocedural hypothyroidism Intake Note: NEW Patient presents today to establish treatment for Postprocedural Hypothyro idism: Grain Mixer Required: No Accompanied by: Self / Same As Patient Allergies formaldehyde (FORMALDEHYDE) Allergy (Unknown, Verified 03/29/25 12:33) ZAID BLANCO Comments Details: 84 years old female with past medical history of hypertension, asthma, good, urinary incontinence, cancer of tonsil: (2018), hemithyroidectomy for goiter 2013, seen in the office for evaluation of hypothyroidism. - Presents for consultation regarding thyroid status and symptoms of fatigue, weight gain, and cold intolerance following a thyroidectomy in 2013. - Reports a history of a goiter that was progressively enlarging, causing dysphagia. Multiple biopsies were performed, which were reportedly atypical but not definitively cancerous.ne side and a dawn-thyroidectomy on the other, along with removal of the isthmus. Believes only one parathyroid gland remains. 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 Has never required thyroid hormone replacement therapy. - Past medical history is significant for a thyroidectomy in 2013 for a goiter, with possible underlying thyroid cancer. Also has a history of transverse colon cancer. Past surgical history includes colon surgery. Reports a history of irritable bowel syndrome (IBS) with mixed constipation and diarrhea, managed with as-needed Imodium. Also reports peripheral neuropathy in the hands and legs, which is worse at night and disrupts sleep. Takes gabapentin for neur opathic pain. - Current medications include gabapentin. Also uses topical frankincense for neuropathic pain in the hands. Denies taking any multivitamins or supplements containing biotin. 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 Reports being overweight but was previously losing weight well until recently gaining 5-6 pounds over the last four months. Diet consists of two meals per day, primarily breakfast and one other meal. Denies significant changes in eating habits. Physical exam: General: Well appearing. NAD. Neck/Thyroid: Thyroid not palpable, no nodules. CV: RRR, no murmur. No edema. Resp:Lungs clear to auscultation bilaterally Abdomen: Soft, nontender. nondistended Extremities/Neuro: No weakness or tremor of outstretched hands Laboratory Tests 04/02/24 05/28/24 09/30/24 11:46 13:58 13:23 TSH 2.97 2.66 0.65 Free T4 1.06 0.94 1.06 Free T3 3.0 2.8 3.6 02/12/25 10:36 TSH 3.64 Free T4 Free T3 PFSH Medical History Neuropathy Asthma Arthritis Hx of thyroid cancer History of colon cancer Hiatal hernia GERD (gastroesophageal reflux disease) Mild stress incontinence Shortness of breath Chronic bronchitis HTN (hypertension) Surgical History History of esophagogastroduodenoscopy (EGD) History of colonoscopy (~07/12/19) History of colon surgery History of bladder suspension procedure Hx of section History of bilateral cataract extraction History of appendectomy Hx of cholecystectomy History of tonsillectomy and adenoidectomy History of thyroidectomy Family History Mother No problems noted. Father No problems noted. Social History Housing: House Are you a primary manager of care to a significant other at home: No Do you presently have visiting nurse or other home services: No Alcohol intake: never Patient Tobacco Use Status: Never used Tobacco e-Cigarette/Vaping Use: Never Used service: No Current occupational status: retired Cognitive needs: No Hearing needs: No Vision needs: Yes (rx glasses) Physical Exam Vital Signs: Last Vital Signs Pulse 93 03/29/25 12:29 BP 130/72 03/29/25 12:29 Pulse Ox 94 03/29/25 12:29 Oxygen Delivery Method Room Air 03/29/25 12:29 BMI result Body Mass Index 31.5 Assessment & Plan Assessment & Plan (1) H/O partial thyroidectomy: Code(s): E89.0 - Postprocedural hypothyroidism Category: Surgical (2) Fatigue: Code(s): R53.83 - Other fatigue Category: Medical Qualifiers: Fatigue type: chronic, unspecified Qualified Code(s): R53.82 - Chronic fatigue, unspecified (3) Hypothyroidism: Code(s): E03.9 - Hypothyroidism, unspecified Category: Medical Qualifiers: Hypothyroidism type: postoperative Qualified Code(s): E89.0 - Postprocedural hypothyroidism Plan: The primary concern is to clarify the indication for the thyroidectomy in 2014, specifically whether it was for malignancy (thyroid cancer) versus benign goiter with Chantale's thyroiditis. The distinction is critical for determining the appropriate long-term surveillance plan. The reported history of multiple atypical biopsies and subsequent total thyroidectomy suggests a high suspicion for malignancy, though this has not been definitively confirmed by prior endocrinologists. - Investigations planned: Will obtain operative and pathology reports from the surgery performed at [facility] in [place] in 2013 to confirm the diagnosis and extent of disease. Will also obtain records from the previous board filler, Dr. Gómez, which the individual has at home. - Medical treatment planned: No thyroid hormone replacement is indicated at this time as TSH levels are within the normal range. - Follow-up appointments: A follow-up appointment is scheduled in approximately three months to review the results of the records and the thyroid ultrasound. - Referrals: A thyroid ultrasound has been ordered to assess the remaining thyroid tissue and rule out any nodules or recurrence. 2. Fatigue - Assessment: Reports significant fatigue, which is likely multifactorial. While thyroid function is normal, other contributing factors include poor sleep quality secondary to neuropathic pain, possible anemia, vitamin D deficiency, or undiagnosed sleep apnea. - Lifestyle modifications: Counseled on the importance of addressing sleep hygiene as a primary step in managing fatigue. - Follow-up appointments: Recommended to discuss these issues further with their primary care provider. Additional Notes: - Patient education on the diagnosed condition: Explained that TSH is an appropriate test for monitoring hypothyroidism post-thyroidectomy but that more comprehensive testing (e.g., thyroglobulin, ultrasound) is required for surveillance of thyroid cancer. Discussed that treatment for hypothyroidism in older adults is conservative to avoid cardiac and bone-related side effects from excessive thyroid hormone replacement. - Instructions for monitoring and managing symptoms: Advised to address sleep disturbances with their primary care provider before attributing fatigue to thyroid dysfunction. - Any specific patient or family concerns addressed during the consultation: Addressed concerns about whether current symptoms are related to thyroid status and whether prior testing was adequate. Reassured that thyroid function appears normal based on current data but that further clarification on the cancer history is needed for proper long-term management. Plan 50 minutes spent reviewing previous records, labs, imaging, education and documenting in the chart Orders: Orders TSH reflex Free T4 Today E89.0 - Postprocedural hypothyroidism US thyroid Today E89.0 - Postprocedural hypothyroidism T4 Thyroxine Today E89.0 - Postprocedural hypothyroidism Coding Level of Care Code New Pt Level 4 (42964) Add On Problem Visit Only Diagnoses H/O partial thyroidectomy E89.0 Chronic fatigue R53.82 Fatigue type: chronic, unspecified Postoperative hypothyroidism E89.0 Hypothyroidism type: postoperative
--- OUTSIDE RECORDS SUMMARY | 2025-03-29 16:13 | XMS_ITS | Patient Health Record ---
Author Organization [facility] Address [address] [place] [address] Care Team Providers Care Client Solutions Manager Name Role Phone Caitlin (RETIRED) Anibal SALAZAR Primary Care Provide r Henrik Jer Zelaya Unavailable [phone] Allergies No Known Allergies Reason For Referral No Information Medications Medication SIG (Take, Route, Frequency, Duration) Notes Start Date End Date Status Fluticasone Propionate Active Multivitamin Active amLODIPine Besylate 10 MG Tablet 1 tablet Orally Once a day Active Tylenol 8 Hour Arthritis Pain 650 MG Tablet Extended Release 2 tablets as needed Orally every 8 hrs Active Cholestyramine 4 GM/DOSE Powder MIX 1/2 TO 1 SCOOP IN A GLASS OF WATER OR ORANGE JUICE ORALLY 1 TO 2 TIMES A DAY FOR DIARRHEA; Duration: 90 Active Omeprazole Magnesium 20 MG Tablet Delayed Release 1 tablet Orally Once a day; Duration: 30 day(s) Active Losartan Potassium 100 MG Tablet Oral; Duration: 90 Active Combivent Respimat 20-100 MCG/ACT Aerosol Solution 1 puff Inhalation Four times a day/prn Active oxyBUTYnin Chloride ER 10 MG Tablet Extended Release 24 Hour TAKE 1 TABLET BY MOUTH ONCE A DAY Orally Once a day Active Gabapentin 300 MG Capsule 1 capsule Orally QID Active Vitamin D3 1000 UNIT Tablet 1 tablet Ora lly Once a day Active Immunizations Vaccine Route Administration Date Status Comme nts Influenza Unknown 12/22/2018 Refused Influenza Unknown 03/13/2021 Administered Social History Tobacco Use: Social History Observation Description Date Details (start date - stop date) Never Smoker NA - NA Social History Drugs/Alcohol: Social Info Question Answer Notes Alcohol Screen Did you have a drink containing alcohol in the past year? 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 Section Notes: Nonsmoker; no alcohol Nonsmoker; no alcohol Nonsmoker; no alcohol Problems Problem Type SNOMED Code ICD Code Onset Dates Problem Status W/U Status Risk Notes Problem Screening for malignant neoplasm of colon (669505707) Encounter for screening for malignant neoplasm of colon (Z12.11) Active confirmed Problem History of adenomatous polyp of colon (310506512) History of adenomatous polyp of colon (Z86.010) Active confirmed Problem Malignant neoplasm of transverse colon (729366640) 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 Problem History of polyp of colon (situation) (780000492) History of colon polyps (Z86.010) Active confirmed Problem Gastroesophageal reflux disease (088543806) Gastroesophageal reflux disease, esophagitis presence not specified (K21.9) Active confirmed Problem History of malignant neoplasm of colon (995143836) History of colon cancer (Z85.038) Active confirmed Problem group home current use of non-steroidal anti-inflammatory drug (183886035020946) NSAID long-term use (Z79.1) Active confirmed Problem Chronic ulcerative pancolitis (970564519) Ulcerative pancolitis without complication (K51.00) Active confirmed Problem Diarrhea (66993899) Diarrhea, unspecified type (R19.7) Active confirmed Problem Irritable bowel syndrome (40663829) Irritable bowel syndrome with both constipation and diarrhea (K58.2) Active confirmed Problem Essential hypertension (76774288) Hypertension, unspecified type (I10) Active confirmed Problem History of gastrointestinal tract bypass (398213008) Hx of Billroth II operation (Z98.0) Active confirmed Encounters Encounter Location Date Provider Diagnosis [facility] [address] [place] [address] 06/25/2024 Jer Zelaya Plan Of Treatment Pending Test Test Name Order Date CELIAC PANEL #10 05/31/2021 Future Test Test Name Order Date UPPER GI ENDOSCOPY 04/18/2017 COLONOSCOPY 04/18/2017 COLONOSCOPY 12/22/2018 COLONOSCOPY 05/31/2021 Next Appt Details Provider Name:Jer Zelaya , 06/28/2025 10:10:00 AM, [address], [address], [place], [address], Insurance Providers Payer Name Payer Address Payer Phone Subscriber Number Group Number Insured Name Patient Relationship to Insured Coverage Start Date Coverage End Date MEDICARE OF [place] [address] [place] [id number] KENYETTA LEO Self - patient is the insured [facility] [address] [place] [phone] [id number] KENYETTA LEO Self - patient is the insured Medical (General) History Medical History History ICD Code Denies [place],DM,CVA,renal disease Asthma Hypertension GERD-EGD in 07/2017--HH, but [...] Neuropathy in hands and feet from the [facility] Surgical History Surgery Date(Month/Year) Tonsillectomy and adenoidectomy 1955 Appendectomy 1959 Cholecystectomy 1979 Partial hysterectomy 2003 Bladder suspension surgery 2004 1974,1980 Thyroidectomy 2016 Rectal prolapse surgery-Dr. Aparicio 2003 Cataract-lens implants both eyes 2006 Colon cancer surgery-right c olectomy and KETTY--for transverse colon lesion--Dr. Powell 07/2017 Scalp cyst removal 07/2018
--- OUTSIDE RECORDS SUMMARY | 2025-03-29 16:13 | XMS_ITS | Data Portability ---
Author Organization [facility]ENN[facility] Raphael [facility], [address] Address [address] [place] [address] Assessment No assessment recorded. Plan of Treatment Reminders Order Date Submit Date Provider Last Modified By Organization Details Last Modified Time Details Appointments None recorded. Lab None recorded. 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 Surgeries None recorded. Imaging XR, foot, 3 or more view 2023 024 [facility], [address] [place], [address], 4 09:55:01 Medication Orders None recorded. Patient TargetsNo targets recorded. Patient InstructionsNo instructions recorded. 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 [email or web address] [facility] [address] [place], [address], 09/15/2023 09:57:33 Result Notes None recorded. Problems Name Problem SNOMED Code Status Onset Date Resolution Date Notes Provider Name and Address Organization Details Recorded Time Neuropathy 794036348 Active 2023 JENNIFER [facility] 4 15:24:11 Hypertensive disorder 72969912 Active 2023 Ghazala daniels PA - [facility] 4 15:24:18 Malignant neoplasm of colon 811305088 Active 2023 Ghazala daniels, [facility]ENN[facility] - [facility] [...] Updated DateTime 09/14/2023 167.64 cm 30.7 kg/m2 53230.55 g Ghazala Godanielle Coy PA [facility] 09/14/2023 15:18:03 Social History Question Answer Notes LastModified by tibdit Details LastModified Time Tobacco Smoking Status Never [...] Functional Status Question Answer Note LastModified by tibdit Details LastModified Time Do you use any [...] ICD10 Code Diagnosis IMO Codes Diagnosis Note [id number] Jean-Claude Martinez DO [address] [place] [place] [address] 09/14/2023 15:13:08 09/14/2023 15:46:37 Pain in left foot 5610335215 88681 M79.672 h/o neuropathy 2/2 chemo check Xray r/o Fxpt will RTC tomorrow for xray Peripheral nerve disease 730890981 G64 referral to podiatry for further eval and treatment [id number] [facility] [address] [place] [place] [address] 09/15/2023 09:26:50 09/15/2023 09:51:34 Left without being seen [id number] 9102 Z53.21 Pt was here for imaging [...] [place]IC[place]: [place] [employer] [place] Lillian Manjarrez [id number] Lillian Manjarrez 10/15/2023 2 [facility] (MEDICAID HMO) [id number] Lillian Manjarrez [id number] Lillian Manjarrez Notes Date Note Type Note [...] Tabit, DO [address] [place] [address], [place], [address], [place] PA - [facility] 09/14/2023 16:05:09 OBGyn Episode No OBEpisode recorded.
--- OUTSIDE RECORDS SUMMARY | 2025-03-29 16:14 | XMS_ITS | Patient Health Record ---
Author Organization Jer Gill III, MD Address [address] [place] [address] [place] [address] Care Team Providers Care Shipping Technician Name Role Phone Anibal Tucker MD Primary Care Provider Dr. Jer Patton III Unavailable [phone] Jer Zelaya MD Unavailable Unavailable Allergies Allergen [...] DAY FOR 30 DAYS for 30 Active Celecoxib 200 MG TAKE 1 CAPSULE BY MO UT DAILY (STOP IBUPROFEN) Oral Active Social History [...] Problem Status W/U Status Risk Notes Problem 38476427 Iron deficiency (E61.1) Active confirmed Her CBC is unremarkable and the iron deficiency has resolved. 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 She is able to live her life normally, however. Problem 400679118 Obesity (BMI 30-39.9) (E66.9) Active confirmed Since her last visit she has lost 8 pounds. Her nutritional status seems adequate. Her appetite is good and no sign of cancer recurrence was noted. I recommend she continue to lose weight at a moderate pace until the body mass index is normal. Problem 211587137 Gastroesophageal reflux disease, esophagitis presence not specified (K21.9) Active confirmed Her esophageal reflux is well controlled with nglj-xqx-ndwf ter medication. No change in her regimen is necessary today. 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 This should be no problem with her adjuvant chemotherapy. 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 Surveillance will continue. The rectal examination and stool guaiac today was unremarkable. Problem 45170926 Hypertension, unspecified type (I10) Active confirmed Her blood pressure is in the normal range today is 143/85. No change in her regimen as indicated.She was referred back to primary care for management of her slightly elevated blood pressure. Problem 86892211 Irritable bowel syndrome, unspecified type (K58.9) Active confirmed His irritable bowel syndrome is quiet at this time and not bothering her much. Problem 639113050 Folic acid deficiency (E53.8) Active confirmed Her primary care physician, Dr. Tucker, has begun on folic acid. I will speak to him about the low iron in the trending low vitamin B12 is well. Problem 344037963 Neuropathic pain (M79.2) Active confirmed Her pain is present but minimal at this time. She is able to conduct all the activities of daily life without impairment. She is continuing current therapy which is controlling the symptomatic lately. Problem 0028280209571746 Arthritis of right knee (M17.11) Active confirmed Vital Signs Heart Rate 86 /min 06/25/2024 Temperature 97.9 degrees Fahrenheit 06/25/2024 Blood pressure diastolic 85 mm Hg 06/25/2024 Height 65 in 06/25/2024 Blood pressure systolic 143 mm Hg 06/25/2024 Weight 189 lbs 06/25/2024 BMI 31.45 kg/m2 06/25/2024 Encounters Encounter Location Date Provider Diagnosis Jer Gill III, MD [address] [place] [address] [place] [address] 06/25/2024 Jer Gill Hypertension, unspec ified type I10 ; Adenocarcinoma of transverse colon C18.4 ; Obesity (BMI 30-39.9) E66.9 ; Gastroesophageal reflux disease, esophagitis presence not specified K21.9 ; Asthma due to environmental allergies J45.909 ; Irritable bowel syndrome, unspecified type K58.9 and Drug-induced polyneuropathy G62.0 Jer Gill III, MD [address] [place] [address] [place] [address] 06/28/2024 Jer Gill Assessments Encounter Date Diagnosis [...] Her esophageal reflux is well controlled with tlfw-ggl-emfqnic medication. No change in her regimen is [...] 03/19/2019 TSH (THYROID STIMULATING HORMONE) 2018 CEA 10/21/2017 CEA 01/07/2018 CEA 11/12/2017 CEA 12/18/2018 CEA 03/19/2019 CEA 05/05/2018 CBC w DIFF 12/10/2017 CBC w DIFF 05/05/2018 CBC w DIFF 10/21/2017 CBC w DIFF 01/07/2018 CBC w DIFF 11/12/2017 CBC w DIFF 12/18/2018 CBC w DIFF 03/19/2019 SED RATE (ESR) 12/18/2018 MAMMOGRAM DIGITAL BILATERAL SCREEN 06/21 Next Appt Details Provider Name:Jer Gill , 06/27/2025 10:30:00 AM, [address] [place] [address] [address], [place], [address], Insurance Providers Payer Name Payer Address Payer Phone Subscriber Number Group Number Insured Name Patient Relationship to Insured Coverage Start Date Coverage End Date MEDICARE [place] [address] [place] [phone] [id number] KENYETTA LEO Self - patient is the insured [employer] [address] [place] [phone] [id number] KENYETTA LEO Self - patient is the [...]
== END 2025-03-29 13:08 | disposition home or self-care (01) ==
LOC: HO.ENCR 12:25
PROVIDERS: PCP Physician Assistant; Visit Provider Student in an Organized Health Care Education/Training Program
DX: E89.0 Postprocedural hypothyroidism (principal); R53.82 Chronic fatigue, unspecified
CPT/HCPCS: 99204; G2211

== ENCOUNTER → 2025-03-29 12:24 | Outpatient (BNVA) | payer MEDICARE, OTHER, SELFPAY | PROVIDERS: PCP Physician Assistant; Visit Provider Student in an Organized Health Care Education/Training Program | DX: E89.0 Postprocedural hypothyroidism (principal); R53.82 Chronic fatigue, unspecified | CPT/HCPCS: 99202 ==

== ENCOUNTER 2025-04-06 09:55 | Outpatient (AMB) | payer MEDICARE, OTHER, SELFPAY ==
--- OUTSIDE RECORDS SUMMARY | 2024-06-25 05:30 | XMS_ITS ---
Author Organization Jer Gill III, MD Address [address] [place] [address] [place] [address] Care Team Providers Care Condenser Tester Name Role Phone Anibal Tucker MD Primary [...] Date Provider Diagnosis Jer Gill III, MD [address] [place] [address] [place] [address] 06/25/2024 Jer Gill Hypertension, unspec ified type [...] Her esophageal reflux is well controlled with zxlh-uyj-qbgknfw medication. No change in her regimen is [...] Celecoxib 200 MG TAKE 1 CAPSULE BY [facility] DAILY (STOP IBUPROFEN) Oral Combivent Respimat Omeprazole 20 MG 1 capsule Orally Once a day amLODIPine Besylate 10 MG 1 tablet Orally Once a day oxyBUTYnin Chloride ER 10 MG 1 tablet Orally Once a day Fluconazole Gabapentin 300 MG TAKE 1 CAPSULE BY [facility] FOUR TIMES A DAY FOR 30 DAYS Next Appt Details Follow Up: 1 Year, Reason: o v Provider Name:Jer Gill , 06/27/2025 10:30:00 AM, [address] [place] [address] DR [facility], [place], [address], Progress Notes * MIKHAIL LEOOB: 2 (84 yo F)Acc No.[id number]:06/25/2024 Progress Notes Patient: KENYETTA ARAGON Provider: Prateek Gill MD :1940 A ge:84 Y S ex:Female Date:06/25/2024 Address: [address], [place] , [id number] Pcp:Anibal Tucker MD Subjective: * Chief Complaints: * H istory of resected adenocarcinoma of the transverse colonHypertensionGERDObesityAsthmaArthritis of the right knee * HPI: C OVID-19 Screening: She returns periodically for assessment after a successful treatment of transverse colon adenocarcinoma. She has had no further gastrointestinal symptoms. She is seeing a natural physician in [facility] for her arthritis. Her esophageal reflux [...] :Her esophageal reflux is well controlled with cssy-kbj-rieenqw medication. No change in her regimen is [...] 0 06/25/2024 Generated for Jos parekh/Harmony/Bhavyaitting on: 06/07/2024 10:03 AM EST History and Physical Notes * [...]
--- OUTSIDE RECORDS SUMMARY | 2024-06-28 06:40 | XMS_ITS ---
Author Organization Jer Gill III, MD Address [address] [place] [address] Care Team Providers Care Well Service Derrick Worker Name Role Phone Anibal Tucker MD Primary Care Provider Esperanzaa Dr. Jer Groves III Unavailable Jer Zelaya MD REASON FOR VISIT Regarding Colonoscopy Encounters Encounter Location Date Provider Diagnosis Jer Gill III, MD [address] [place] [address] [place] [address] 06/28/2024 Jer Gill Plan Of Treatment Next Appt Details Provider Name:Jer Gill , 06/27/2025 10:30:00 AM, [address] [place] [address] [place], [address], Progress Notes * MIKHAIL LEOOB: 2 (84 yo F)Acc No.[id number]:06/28/2024 Patient: KENYETTA ARAGON :1940 A ge:84 Y S ex:Female Address:[place], [address] * true * Date: Generated for Jordyi izabella/Harmony/eTransmitting on: 06/07/2024 10:03 AM EST
--- NOTE | 2025-04-06 10:02 | AM.OFFVISNUR ---
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 Has the patient ever had any past reaction to a flu shot?: No Immunizations Fluzone High-Dose (PF) 180 mcg/0.5 mL intramuscular syringe Performing Provider: JENNIFER Sanchez Performing Location: [facility] Administered by: Grecia James CMA on 04/06/25 10:02 Dose Route Admin Location Dispensed Lot Number Expiration Date [facility] Director Of Vital Statistics 0.5 mL IM Right Deltoid 0.5 mL [id number] 10/11/25 22349-339-03 [employer] Total Dispensed Waste 0.5 mL 0 % VIS Given Date VIS Provided VIS Publication Date 04/06/25 Single Vaccine 24 Eligibility Eligibility Date Funding Source Not [facility] [place] E[place]ible 04/06/25 Private Assessment & Plan Assessment & Plan Orders: Orders Influenza High Dose Immunization Today Z23 - Encounter for immunization Coding
--- OUTSIDE RECORDS SUMMARY | 2025-04-06 10:03 | XMS_ITS | Data Portability ---
Author Organization JENNIFER Raphael s, [address] Address [address] [place] [address] Assessment No assessment recorded. Plan of Treatment Reminders Order Date Submit Date Provider Last Modified By Organization Details Last Modified Time Details Appointments None recorded. Lab None recorded. Referral rv detailer referral 2023 024 [email or web address] Not available 4 08:06:04 Procedures None recorded. Surgeries None recorded. Imaging XR, foot, 3 or more view 2023 024 [facility], [address] [place], [address], 4 09:55:01 Medication Orders None recorded. Patient TargetsNo targets recorded. Patient InstructionsNo instructions recorded. Reason for Referral Demand Planning Manager Referral for Rosa Maria pheral nerve disease Referring Physician: Jean-Claude Martinez, Urgent Care, Encounter Date: 09/14/2023 Results Created Date Observation Date Name Description Value Unit Range Abnormal Flag Note LastModifiedBy Organization Detail LastModifiedTime 09/15/19 24 09/15/2023 XR, foot, 3 or more view No observ ation record ed. [email or web address] [facility] [address] [place], [address], 09/15/2023 09:57:33 Result Notes None recorded. Problems Name Problem SNOMED Code Status Onset Date Resolution Date Notes Provider Name and Address Organization Details Recorded Time Neuropathy 927193051 Active 2023 JENNIFER [facility] 4 15:24:11 Hypertensive disorder 18812459 Active 2023 Ghazala dnaiels PA - [facility] 4 15:24:18 Malignant neoplasm of colon 029696962 Active 2023 Ghazala daniels, [facility]ENN[facility]ER - [facility] [...] Updated DateTime 09/14/2023 167.64 cm 30.7 kg/m2 40391.55 g Ghazala Godanielle Coy PA [facility] 09/14/2023 15:18:03 Social History Question Answer Notes LastModified by AG&P Details LastModified Time Tobacco Smoking Status Never [...] Functional Status Question Answer Note LastModified by AG&P Details LastModified Time Do you use any [...] ICD10 Code Diagnosis IMO Codes Diagnosis Note [id number] Jean-Claude Martinez DO [address] [facility] [place] [address] 09/14/2023 15:13:08 09/14/2023 15:46:37 Pain in left foot 4038255993 38469 M79.672 h/o neuropathy 2/2 chemo check Xray r/o Fxpt will RTC tomorrow for xray Peripheral nerve disease 640849551 G64 referral to podiatry for further eval and treatment [id number] JENN[address]ER [address] [facility] [place] [address] 09/15/2023 09:26:50 09/15/2023 09:51:34 Left without being seen [id number] 9102 Z53.21 Pt was here for imaging [...] [place]IC[place]: [employer] Lillian Manjarrez [id number] Lillian Manjarrez 10/15/2023 2 [facility] (MEDICAID HMO) [id number] Lillian Manjarrez [id number] Lillian Manjarrez Notes Date Note Type Note [...] Tabit, DO [address] [place] [address], [place], [address], [place] PA - [facility] 09/14/2023 16:05:09 OBGyn Episode No OBEpisode recorded.
--- OUTSIDE RECORDS SUMMARY | 2025-04-06 10:04 | XMS_ITS | Patient Health Record ---
Author Organization Jer Gill III, MD Address [address] [place] [address] [place] [address] Care Team Providers Care Wind Tunnel Technician Name Role Phone Anibal Tucker MD Primary Care Provider Dr. Jer Patton III Unavailable [phone] Jer Zelaya MD Unavailable Unavailable Allergies Allergen [...] Problem Status W/U Status Risk Notes Problem 72981003 Iron deficiency (E61.1) Active confirmed Her CBC is unremarkable and the iron deficiency has resolved. 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 She is able to live her life normally, however. Problem 190469290 Obesity (BMI 30-39.9) (E66.9) Active confirmed Since her last visit she has lost 8 pounds. Her nutritional status seems adequate. Her appetite is good and no sign of cancer recurrence was noted. I recommend she continue to lose weight at a moderate pace until the body mass index is normal. Problem 471346205 Gastroesophageal reflux disease, esophagitis presence not specified (K21.9) Active confirmed Her esophageal reflux is well controlled with cgrx-mal-rgle ter medication. No change in her regimen is necessary today. 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 This should be no problem with her adjuvant chemotherapy. 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 Surveillance will continue. The rectal examination and stool guaiac today was unremarkable. Problem 43245376 Hypertension, unspecified type (I10) Active confirmed Her blood pressure is in the normal range today is 143/85. No change in her regimen as indicated.She was referred back to primary care for management of her slightly elevated blood pressure. Problem 05974360 Irritable bowel syndrome, unspecified type (K58.9) Active confirmed His irritable bowel syndrome is quiet at this time and not bothering her much. Problem 656249621 Folic acid deficiency (E53.8) Active confirmed Her primary care physician, Dr. Tucker, has begun on folic acid. I will speak to him about the low iron in the trending low vitamin B12 is well. Problem 150961510 Neuropathic pain (M79.2) Active confirmed Her pain is present but minimal at this time. She is able to conduct all the activities of daily life without impairment. She is continuing current therapy which is controlling the symptomatic lately. Problem 9437965362944296 Arthritis of right knee (M17.11) Active confirmed Vital Signs Heart Rate 86 /min 06/25/2024 Temperature 97.9 degrees Fahrenheit 06/25/2024 Blood pressure diastolic 85 mm Hg 06/25/2024 Height 65 in 06/25/2024 Blood pressure systolic 143 mm Hg 06/25/2024 Weight 189 lbs 06/25/2024 BMI 31.45 kg/m2 06/25/2024 Encounters Encounter Location Date Provider Diagnosis Jer Gill III, MD [address] [place] [address] [place] [address] 06/25/2024 Jer Gill Hypertension, unspec ified type I10 ; Adenocarcinoma of transverse colon C18.4 ; Obesity (BMI 30-39.9) E66.9 ; Gastroesophageal reflux disease, esophagitis presence not specified K21.9 ; Asthma due to environmental allergies J45.909 ; Irritable bowel syndrome, unspecified type K58.9 and Drug-induced polyneuropathy G62.0 Jer Gill III, MD [address] [place] [address] [place] [address] 06/28/2024 Jer Gill Assessments Encounter Date Diagnosis [...] Her esophageal reflux is well controlled with hlyd-stf-jtnhgru medication. No change in her regimen is [...] Provider Name:Jer Gill , 06/27/2025 10:30:00 AM, [address] [place] [address] [address], [place], [address], Insurance Providers Payer Name Payer Address Payer Phone Subscriber Number Group Number Insured Name Patient Relationship to Insured Coverage Start Date Coverage End Date MEDICARE NGS [address] [place] [phone] [id number] KENYETTA LEO Self - patient is the insured [employer] [address] [place] [phone] [id number] KENYETTA LEO Self - patient is the [...]
--- OUTSIDE RECORDS SUMMARY | 2025-04-06 10:04 | XMS_ITS | Patient Health Record ---
Author Organization [facility] Address [address] [place] [address] Care Team Providers Care Lvn Lpn Name Role Phone Caitlin (RETIRED) Anibal SALAZAR Primary Care Provide r Henrik Jer Zelaya Unavailable [phone] Allergies No Known Allergies Reason For Referral [...] Problem Screening for malignant neoplasm of colon (601483909) Encounter for screening for malignant neoplasm of colon (Z12.11) Active confirmed Problem History of adenomatous polyp of colon (233096194) History of adenomatous polyp of colon (Z86.010) Active confirmed Problem Malignant neoplasm of transverse colon (245648887) 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 Problem History of polyp of colon (situation) (700271178) History of colon polyps (Z86.010) Active confirmed Problem Gastroesophageal reflux disease (748687091) Gastroesophageal reflux disease, esophagitis presence not specified (K21.9) Active confirmed Problem History of malignant neoplasm of colon (049382395) History of colon cancer (Z85.038) Active confirmed Problem [facility] current use of non-steroidal anti-inflammatory drug (380189261479742) NSAID long-term use (Z79.1) Active confirmed Problem Chronic ulcerative pancolitis (290956897) Ulcerative pancolitis without complication (K51.00) Active confirmed Problem Diarrhea (36839467) Diarrhea, unspecified type (R19.7) Active confirmed Problem Irritable bowel syndrome (36687805) Irritable bowel syndrome with both constipation and diarrhea (K58.2) Active confirmed Problem Essential hypertension (95780812) Hypertension, unspecified type (I10) Active confirmed Problem 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 confirmed Encounters Encounter Location Date Provider Diagnosis [facility] [address] [place] [address] 06/25/2024 Jer Zelaya Plan Of Treatment Pending Test Test Name Order Date CELIAC PANEL #10 05/31/2021 Future Test Test Name Order Date UPPER GI ENDOSCOPY 04/18/2017 COLONOSCOPY 04/18/2017 COLONOSCOPY 12/22/2018 COLONOSCOPY 05/31/2021 Next Appt Details Provider Name:Jer Zelaya , 06/28/2025 10:10:00 AM, [address], [address], [place], [address], Insurance Providers Payer Name Payer Address Payer Phone Subscriber Number Group Number Insured Name Patient Relationship to Insured Coverage Start Date Coverage End Date MEDICARE OF [place] [address] [place] [id number] KENYETTA LEO Self - patient is the insured [facility] [address] [place] [place] [phone] [id number] KENYETTA LEO Self - patient is the [...] Neuropathy [facility] Surgical History Surgery Date(Month/Year) Tonsillectomy and adenoidectomy 1955 Appendectomy 1959 Cholecystectomy 1979 Partial hysterectomy 2003 Bladder suspension surgery 2004 1974,1980 Thyroidectomy 2016 Rectal prolapse surgery-Dr. Aparicio 2003 Cataract-lens implants both eyes 2006 Colon cancer surgery-right c olectomy and KETTY--for transverse colon lesion--Dr. Powell 07/2017 Scalp cyst removal 07/2018
== END 2025-04-06 10:02 | disposition home or self-care (01) ==
LOC: HO.HMCHD 09:55
PROVIDERS: PCP Physician Assistant
DX: Z23 Encounter for immunization (principal)

== ENCOUNTER → 2025-04-06 09:55 | Outpatient (BNVA) | payer MEDICARE, OTHER, SELFPAY | PROVIDERS: PCP Physician Assistant | DX: Z23 Encounter for immunization (principal) | CPT/HCPCS: 90471; 90662 ==